=== PATIENT | female | born 1955 | race Caucasian/White ===

== ENCOUNTER 2023-11-17 22:24 | Emergency (ER) | payer MEDICARE, MEDICAID, SELFPAY ==
[2023-11-17 22:27] VITALS: BP 104/87; PULSE 91; RESP 18; TEMP 35.9; O2SAT 98
[2023-11-17 22:52] LABS: Appearance Urine Cloudy (Clear); Bilirubin Urine Negative (Negative); Blood Urine Negative (Negative); Color Urine Light Yellow (Yellow); Glucose Urine UA Negative (Negative); Ketones Urine Negative (Negative); Leukocyte Esterase Ur 1+ LEU/UL (Negative); Nitrate Urine Negative (Negative); Protein Urine Negative (Negative); Urobilinogen Urine >=8.0 mg/dL (0.2-1.0)
--- NOTE | 2023-11-17 22:52 | PC.NURSE ---
daughter and boyfriend arrived and at the bedside
[2023-11-17 22:57] LABS: Add Urine Microscopic? YES; Bacteria Urine 4+ /hpf; RBC Urine 0-2 /hpf (0-2); Squamous Epithelial Cell Urine Rare /hpf (Few)
--- NOTE | 2023-11-17 23:02 | PC.NURSE ---
dr garcia at the bedside
--- NOTE | 2023-11-17 23:07 | ECG_ITS ---
Test Date: 2023-11-17 23:21:33 Measurements Intervals [place] Rate: 86 P: -67 FL: 170 QRS: -16 QRSD: 86 T: 24 QT: 371 QTc: 446 Interpretive Statements SINUS RHYTHM LEFT VENTRICULAR HYPERTROPHY WITH ST-T WAVE CHANGES POOR R WAVE PROGRESSION INFERIOR INFARCT, AGE INDETERMINATE ABNORMAL ECG No previous ECG available for comparison Electronically Signed On 11-18-2023 08:56:34 CDT by Fredrick Mederos D.O.
[2023-11-17 23:35] LABS: Basophils Absolute Auto 0.11 K/mm3 (0.00-0.10); Basophils Percent Auto 1.4 % (0.0-1.0); Eosinophils Absolute Auto 0.34 K/mm3 (0.02-0.50); Eosinophils Percent Auto 4.4 % (1.0-6.0); Hemoglobin 14.2 g/dL (11.7-13.8); Immature Granulocyte Absolute 0.02 K/mm3 (0.00-0.00); Immature Granulocyte Percent A 0.3 % (0.0-0.0); Lymphocytes Absolute Auto 1.87 K/mm3 (1.10-4.50); Lymphocytes Percent Auto 24.2 % (18.0-42.0); Mean Corpuscular HGB Conc 33.8 g/dL (32-36); Mean Corpuscular Hemoglobin 32.7 pg (27.0-31.0); Mean Corpuscular Volume 96.8 fL (78.0-102.0); Mean Platelet Volume 9.7 fl (9.2-11.8); Monocytes Absolute Auto 1.02 K/mm3 (0.10-0.90); Monocytes Percent Auto 13.2 % (2.0-11.0); Neutrophils Absolute Auto 4.38 K/mm3 (1.70-7.20); Neutrophils Percent Auto 56.5 % (50.0-70.0); Platelet Count Result 208 K/mm3 (150-420); Red Blood Count 4.34 M/mm3 (4.20-5.40); White Blood Count 7.7 K/mm3 (4.8-10.8)
[2023-11-17] MEDS: SODIUM CHLORIDE 0.9% IV 1,000 ML 999 ML IV CONT (23:47)
[2023-11-17 23:51] LABS: Albumin Level 3.1 g/dL (3.4-5.0); Alkaline Phosphatase 82 U/L (46-116); Ammonia 118 umol/L (11-32); Anion Gap 10 mmol/L (4-12); Aspartate Amino Transferase 50 U/L (15-37); Bilirubin Direct 0.3 mg/dL (0-0.2); Blood Urea Nitrogen 15 mg/dL (7-18); Calcium 9.5 mg/dL (8.5-10.1); Carbon Dioxide 24 mmol/L (21-32); Chloride 105 mmol/L (98-108); Estimated CRCL calculation 61 ml/min; Estimated Glomerular Filt Rate 60; Osmolality Calculated 289 mOsm/kg (285-295); Potassium 3.5 mmol/L (3.5-5.1); Sodium 139 mmol/L (136-145); Total Protein 7.6 g/dL (6.4-8.2)
[2023-11-18 00:02] LABS: Alanine Aminotransferase 9 U/L (14-59); Glucose 112 mg/dL (70-99)
--- NOTE | 2023-11-18 00:04 | PC.NURSE ---
patient is resting on stretcher. daughter at the bedside. patient was repositioned for comfort by Ora mcclellan. call light is in reach
[2023-11-18] MEDS: LACTULOSE 20 GM/30 ML UDC 40 GM PO (00:27)
--- NOTE | 2023-11-18 00:31 | PC.NURSE ---
patient is resting on stretcher. bedside commode is in the room. call light in reach. patient states she will call if she needs to go to the bathroom. daughter has stepped out of the room. patient reports that she does not take her lactulose the way she should because it does not taste good. education about risks and benefits of taking lactulose was given. patient verbalized understanding. currently waiting on transfer line for [facility] to return call
--- NOTE | 2023-11-18 00:46 | ED.WEAKNESS ---
HPI - Weakness General Chief complaint: Weakness Stated complaint: Weakness Time Seen by Provider: 11/17/23 22:38 Source: patient Mode of arrival: ambulatory Limitations: no limitations History of Present Illness HPI Narrative: Patient is a 68-year-old female with a significant past medical history that presents today with confusion and what she thought was a UTI. She called the EMS to take her in as she has done this frequently when she has UTIs she is very weak and has to have them taken by EMS. Her symptoms is she is very fatigue and weak. After further questioning she does have liver problems she had hep C that was cured. She also had some lower lobe probably think that related to alcohol and other contributing factors to liver failure. She does and is supposed to take lactulose. But she has not been taking her lactulose as prescribed. She states she is not felt like and she is not very good at taking her medications. Complaint: generalized weakness Onset (ago): day(s) Duration: constant Location: generalized Severity: moderate Quality: tingling and numbness Relieving factors: none Exacerbating factors: none Associated symptoms: confusion Related Data Home Medications Medication Instructions Recorded Confirmed [place] 7.5 mg PO TID PRN Pain 11/17/23 11/17/23 amitriptyline 10 mg PO QHS 11/17/23 11/17/23 fluoxetine 20 mg PO DAILY 11/17/23 11/17/23 furosemide 80 mg PO DAILY 11/17/23 11/17/23 lactulose 30 ml PO 4XW 11/17/23 11/17/23 metformin 500 mg PO BID 11/17/23 11/17/23 rosuvastatin 20 mg PO DAILY 11/17/23 11/17/23 spironolactone 50 mg PO BID 11/17/23 11/17/23 Allergies Allergy/AdvReac Type Severity Reaction Status Date / Time No Known Allergies Allergy Verified 11/17/23 22:37 Review of Systems Review of Systems: All systems reviewed & are unremarkable except as noted in HPI and below Constitutional: Constitutional: Reports as per HPI Eyes: Eyes: Reports no additional eye complaints ENT: Reports system reviewed and no additional complaints, except as documented Cardiovascular: Cardiovascular: Reports no additional cardiovascular complaints Respiratory: Respiratory: Reports no additional respiratory complaints Gastrointestinal: Gastrointestinal: Reports no additional gastrointestinal complaints Genitourinary: Genitourinary: Reports no additional female genitourinary complaints Musculoskeletal: Musculoskeletal: Reports no additional musculoskeletal complaints Integumentary/Breasts: Skin/Breast: Reports system reviewed and no additional complaints, except as docu Neurologic: Reports system reviewed and no additional complaints, except as documented Psychiatric: Psychiatric: Reports no additional psychiatric complaints Endocrine: Endocrine: Reports no additional endocrine complaints Hematologic/Lymphatic: Hematologic/Lymphatic: Reports no additional hematologic/lymphatic complaints Allergic/Immunologic: Allergic/Immunologic: Reports no additional allergic/immunologic complaints Exam Const: General: healthy appearing Nutritional Appearance: well nourished Orientation/consciousness: patient oriented x3 HENMT: Head: normal to inspection Ears: external ears normal Face/Nose/Sinus: Normal external nose present Face and sinus: normal facial exam Eyes: Conjunctivae: conjunctivae normal Pupils: Equal, round and reactive pupils present EOM: EOMs intact bilaterally Neck: Neck: normal visual inspection Chest: Chest palpation & inspection: normal inspection of the chest Resp: Effort & Inspection: normal respiratory effort Auscultation: clear to auscultation bilaterally Cardio: Rate: regular rate Rhythm: regular rhythm GI: GI Palp: Yes Soft to palpation : General: Yes bladder normal to palpation Back/Spine/Pelvis: Back: no CVA tenderness Skin: General skin exam: normal color Rashes: no rashes Wounds: no wounds Extrem: General: normal to inspection Psych: Other: confus
--- NOTE | 2023-11-18 01:30 | PC.NURSE ---
resting on stretcher with familly at her side. no needs voiced at time. call light in reach
[2023-11-18] MEDS: NITROFURANTOIN MONOHYD MACROCR 100 MG CAP PO (01:53)
--- NOTE | 2023-11-18 02:07 | PC.NURSE ---
waiting on [facility] to return call for bed assignment and phone number for nurse to nurse report
--- NOTE | 2023-11-18 02:27 | PC.NURSE ---
updated patient that EMS crew will be here after 0700 to transfer to [facility]
[2023-11-18 02:34] VITALS: BP 126/57; PULSE 82; RESP 18; TEMP 35.9; O2SAT 95
--- NOTE | 2023-11-18 03:33 | PC.NURSE ---
patient resting quietly on stretcher. family at the bedside. they are getting ready to go home. patient resp even and unlabored. call light in reach
--- NOTE | 2023-11-18 04:26 | PC.NURSE ---
patient resting quietly on stretcher. appears to be sleeping. resp even and unlabored. call light in reach. cell phone on bedside table along with note from her daughter
--- NOTE | 2023-11-18 05:16 | PC.NURSE ---
patient called out. eleuterio Payan, reports that she needed to use the bathroom. eleuterio Payan, helped patient to bedside commode.
[2023-11-18 06:06] VITALS: BP 105/50; PULSE 80; RESP 18; TEMP 35.9; O2SAT 95
--- NOTE | 2023-11-18 06:14 | PC.NURSE ---
patient resting quietly on stretcher. resp even and unlabored. call light in reach.
[2023-11-18 07:54] VITALS: BP 110/52; PULSE 84; RESP 20; TEMP 36.2; O2SAT 96
--- NOTE | 2023-11-20 13:23 | PC.NURSE ---
PRELIMINARY URINE CULTURE RESULTS: GRAM NEGATIVE BACILLI IN CLUSTERS, PT WAS TRANSFERRED TO [facility].
--- NOTE | 2023-11-21 16:24 | PC.NURSE ---
FINAL URINE CULTURE RESULTS: ISOLATE 1: GREATER THAN 100,000 CFU/ML OF ESCHERICHIA COLI. PT WAS TRANSFERRED TO [facility]. SPOKE WITH ADAMA DE PAZ AT [facility] WHO REPORTS PT WAS DC HOME, NO RX WERE GIVEN FOR ANTIBIOTICS UPON DC, HOWEVER SHE DID RECEIVE ROCEPHIN 1000MG IV X3 WHILE IN PT. PER DR SCHROEDER AND C&S, NO FURTHER TX IS NEEDED.
== END 2023-11-18 07:54 | disposition short-term general hospital (02) ==
PROVIDERS: Emergency Provider Family Medicine
DX: E72.20 Disorder of urea cycle metabolism, unspecified (principal); N39.0 Urinary tract infection, site not specified; Z79.899 Other long term (current) drug therapy; Z79.84 Long term (current) use of oral hypoglycemic drugs
CPT/HCPCS: 36415; 80053; 81001; 82140; 82248; 83605; 85025; 87077; 87086; 87088; 87186; 93005; 96360; 99285; A9270; J7030

== ENCOUNTER 2024-09-03 06:29 | Observation (INO) | payer MEDICARE, MEDICAID, SELFPAY ==
[2024-09-03] VITALS (20 sets, daily range): BP systolic 118–138; BP diastolic 54–78; PULSE 84–100; RESP 16–20; TEMP 36.6–36.7; O2SAT 90–99; BMI 44790.6
--- NOTE | ~2024-09-03 | CT_ITS ---
Non-contrast Head CT History: Multiple falls Technique: Axial non-contrast imaging of the brain was performed. Dose reduction technique was used on this scan by utilizing automated exposure control and iterative reconstruction technique. The dose -length product (DLP) was 681.00 mGy-cm. Findings: There is no evidence of intracranial hemorrhage, mass lesion, or acute infarct. Brain par enchyma appears normal. The ventricles and subarachnoid spaces are normal in size. The calvarium ap pears normal. The visualized paranasal sinuses and mastoid air cells are clear. Impression: No significant abnormality seen. Reviewed, dictated and finalized at location . Impression: No significant abnormality seen.
--- NOTE | ~2024-09-03 | XR_ITS ---
XR chest 1V portable 09/03/2024 07:02 Indication: Shortness of breath. History of COPD. Procedure: AP portable chest Comparison: No prior studies for comparison. Findings: Right basilar airspace consolidation, consistent with pneumonia. Cardiomegaly. No significa nt effusion. No pneumothorax. Severe degenerative changes of the shoulders. Impression: 1: Right basilar consolidation, consistent with pneumonia. Reviewed, dictated and finalized at location A. Impression: 1: Right basilar consolidation, consistent with pneumonia.
--- NOTE | ~2024-09-03 | CT_ITS ---
Non-contrast CT scan of the Abdomen and Pelvis Clinical indication: Left lower quadrant mass Technique: 2.5 mm axial scans were obtained through the abdomen and pelvis without intravenous or or al contrast. Dose reduction technique was used on this scan by utilizing automated exposure control a nd iterative reconstruction technique. The dose-length product (DLP) was 1594.74 mGy-cm. Findings: Images through the lung bases reveal right lower lobe consolidation with bronchiectasis/ai r bronchograms.. Multiple gallstones are present. Mildly nodular contour of liver suggests cirrhosis. There are probab le splenorenal varices. The kidneys, spleen, pancreas, and adrenals appear normal. There are atherosc lerotic calcifications of the aorta. . There is no evidence of bowel obstruction. Images through the pelvis were performed. There is no evidence of ascites or lymphadenopathy. Urinary bladder unremarkable. Left ovary is enlarged measuring 11.8 x 11.0 x 11.1 cm, with several cystic ar eas within it. There is a similar appearance of enlarged right ovary, which measures 7.6 x 4.6 x 3.5 cm. There is diffuse degenerative spondylosis of the spine. Impression: Marked enlargement of bilateral ovaries, left greater than right, as detailed above. Diagnostic consi derations include ovarian hyperthecosis or ovarian hyperstimulation due to underlying gonadotropin se creting tumor or other hormonal imbalance, versus possibly other bilateral ovarian neoplastic/metasta tic lesions. Gynecologic and possibly endocrinologic follow up/consultation advised. 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 Cholelithiasis. Right lower lobe consolidation with bronchiectasis and air bronchograms. Appearance is suggestive of chronic consolidation such as atelectasis or scarring. Correlate for acute pneumonia. Reviewed, dictated and finalized at [facility]. Impression: Marked enlargement of bilateral ovaries, left greater than right, as detailed a heber. Diagnostic considerations include ovarian hyperthecosis or ovarian hypers timulation due to underlying gonadotropin secreting tumor or other hormonal imb alance, versus possibly other bilateral ovarian neoplastic/metastatic lesions. Gynecologic and possibly endocrinologic follow up/consultation advised. 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 Cholelithiasis. Right lower lobe consolidation with bronchiectasis and air bronchograms. Appear ance is suggestive of chronic consolidation such as atelectasis or scarring. Co rrelate for acute pneumonia.
--- NOTE | ~2024-09-03 | CT_ITS ---
Procedure: CT hip LT wo con Ordering provider: Laurel Reid MD History: . fall/ALWAYS HAS HIP PAIN . Comparison: None. Technique: Thin slice axial CT of the No IV contrast was given. Sagittal and coronal reformatted imag es were also obtained and reviewed. The dose-length product was 543.77 mGy-cm. Findings: BONES: No definite fracture demonstrated. Old healed fracture in the right inferior pubic ramus is no shana. JOINT SPACES: Moderately narrowed suggestive of osteoarthritic changes. SOFT TISSUES: Slightly hyperdense areas seen in the pelvis and left side of the abdomen with multiple hypodensities. Further evaluation is advised to exclude ovarian masses. IMPRESSION: No definite acute fracture demonstrated. Hyperdense masses with hypodensity is suggestive of ovarian masses. Further evaluation advised. Reviewed, dictated and finalized at location A. IMPRESSION: No definite acute fracture demonstrated. Hyperdense masses with hypodensity is suggestive of ovarian masses. Further paolo luation advised.
--- NOTE | ~2024-09-03 | CT_ITS ---
CT lumbar spine wo con Ordering provider: Laurel Reid History: 69 years Female with . fall/ALWAYS HAS BACK PAIN . Comparison: None. Technique: CT lumbar spine without contrast. Automated exposure control and iterative reconstruction technique were employed. The dose-length product was 1253.80 mGy-cm. FINDINGS: VERTEBRAE: Loss of height is noted in L1 and L2 which is most likely chronic. MRI evaluation advised. Otherwise, Normal height and alignment. No subluxation or visible acute fracture. Osteopenia of the bones. DISC SPACES: Narrowing of the disc L4-L5. Vacuum phenomena seen at the level of L3-L4 and L5-S1. Mult ilevel facet joint disease. T11-T12: Severe spinal canal stenosis. Bilateral narrowing of the foramina. T12-L1: No stenosis. L1-L2: No stenosis. L2-L3: No stenosis. L3-L4: Mild spinal canal stenosis secondary to broad based disc bulge, osteophytes, facet arthropathy , and ligamentum flavum hypertrophy. bilateral intervertebral foraminal narrowing by osteophytes. L4-L5: Severe spinal canal stenosis secondary to broad based disc bulge, facet arthropathy, and liga mentum flavum hypertrophy. Bilateral narrowing of the foramina with root compression. L5-S1: No stenosis. PARASPINOUS SOFT TISSUES: Mild atheromatous disease of the abdominal aorta. Cholelithiasis. Highly suggestive of ovarian masses seen in the midline and on the left side. Tiny calcification the left kidney suggestive of a stone. Bilateral sacroiliitis. IMPRESSION: Loss of height seen in L2 and L3 most likely chronic. MRI evaluation advised. Multilevel degenerative disc disease with variable degrees of spinal canal stenosis and intervertebra l foraminal narrowing. Ovarian masses. Further evaluation advised. Cholelithiasis. Tiny left kidney stone. Reviewed, dictated and finalized at location A. IMPRESSION: Loss of height seen in L2 and L3 most likely chronic. MRI evaluation advised. Multilevel degenerative disc disease with variable degrees of spinal canal sten osis and intervertebral foraminal narrowing. Ovarian masses. Further evaluation advised. Cholelithiasis. Tiny left kidney stone.
--- OUTSIDE RECORDS SUMMARY | 2024-09-03 06:31 | XMS_ITS | Continuity of Care Document ---
Author Organization [facility] Address [address] [place] [address] Phone Care Team Providers Care Environmental Programs Manager Name Role Phone Delroy Calhoun MD Unavailable Unavailable Allergies, Adverse Reactions, Alerts Substance Reaction Status Criticality No Known Allergies Active No Inform ation Medications Medication Instructions Dosage Effective Dates (start - stop) Status Comments lisinopril 20 mg-hydrochlorothi azide 12.5 mg tablet take 1 tablet by oral route every day 1.00 tablet - Active Tylenol-Codeine #3 300 mg-30 mg tablet take 1 tablet by oral route 2 times every day as needed 1 tablet - Active avoid drivin g or operate machines potassium chloride ER 20 mEq tablet,extended release take 1 tablet (20MEQ) by oral route every day with food 20 MEQ - Active Lasix 20 mg tablet take 1 tablet (20MG) by oral route 2 times every day 20 MG - Active Procedures Procedure Date PREV VISIT, NEW, AGE 40-64 Advance Directives Directive Yes / No Effective Date File Name No Information Encounters Encounter Description Practice Location Reason(s) For Visit Diagnoses Date Provider Providers Copied on Encounter [facility], [address], [place], [id number], tel:[phone] [facility] No Information [address], [place], [id number] , [place]. tel:[phone] PREV VISIT, NEW, AGE 40-64 [facility], [address], [id number], tel:[phone] [facility] Physical (chief complaint) Dietary surveillance and counselingRoutine Medical ExamRoutine Medical Exam [address], [place], [place], [id number] , [place]. [phone] Family History Family Member Type Diagnosis Age At Onset Brother Problem (finding) gout Father Problem (finding) Coronary artery disease 60 Mother Problem (finding) Diabetes mellitus Mother Problem (finding) Cancer, unknown Payers Payer name Insurance type Covered constitution party ID Authoriza tion(s) No Information Social History Type Description Quantity Date Captured Comments Sex Female Smoking Status No Information Chief Complaint And Reason For Visit No Information Plan Of Treatment Date Type Action Status Goal Tobacco cessation counseling completed Referral Ordered: COLONOSCOPY AND BIOPSY ordered Referral Ordered: MAMMOGRAM, SCREENING ordered History Of Present Illness Encounter Date Complaint History Of Prese nt Illness No Information Instructions Date Instruction Additional Infor leah Dietary counseling Related to Di etary surveillance counseling Decrease caloric intake Related to Dietary surveillance counseling Assessments Type Assessment Date No Information
--- OUTSIDE RECORDS SUMMARY | 2024-09-03 06:31 | XMS_ITS | Clinical Summary ---
Author Organization [facility] Address [address] [place] [address] Care Team Providers Care Outcomes Manager Name Role Phone Rolly Best MD Primary Care Provider [phone] Allergies No known active allergies Medications rosuvastatin (CRESTOR) 20 MG tablet Take 1 tablet (20 mg total) by mouth 2 (two) times daily. Active spironolactone (ALDACTONE) 50 MG tablet Take 1 tablet (50 mg total) by mouth daily. Active sulfamethoxazol e-trimethoprim (BACTRIM DS) 800-160 MG tablet Take 1 tablet by mouth 2 (two) times daily. Active triamcinolone (KENALOG) 0.1 % ointment Apply topically 2 (two) times daily. Active dulaglutide (TRULICITY) 3 MG/0.5ML injection Inject 3 mg into the skin once a week. Active amitriptyline (ELAVIL) 10 MG tablet Take 1 tablet (10 mg total) by mouth nightly at bedtime. Active buPROPion XL (WELLBUTRIN XL) 150 MG 24 hr tablet Take 1 tablet (150 mg total) by mouth daily. Active FLUoxetine (PROZAC) 20 MG capsule Take 1 capsule (20 mg total) by mouth daily. Active furosemide (LASIX) 80 MG tablet Take 1 tablet (80 mg total) by mouth daily. Active HYDROcodone-anastasiia taminophen (NORCO) 5-325 MG tablet Take 1 tablet by mouth 3 (three) times daily. Active ipratropium-alb uterol (DUONEB) 0.5-2.5 (3) MG/3ML Solution Take by nebulization every 4 (four) hours as needed. Active ketorolac (ACULAR LS) 0.4 % ophthalmic solutionIndicat ions:surgery drop Place 1 drop into the right eye 3 (three) times daily. Indications: surgery drop Active lovastatin (MEVACOR) 40 MG tablet Take 1 tablet (40 mg total) by mouth daily with supper. Active metFORMIN ER (GLUCOPHAGE-XR) 500 MG 24 hr tablet Take 2 tablets (1,000 mg total) by mouth daily with breakfast. Active ofloxacin (OCUFLOX) 0.3 % ophthalmic solutionIndicat ions:surgery drop Place 1 drop into the right eye 3 (three) times daily. Indications: surgery drop Active prednisoLONE acetate (PRED FORTE) 1 % ophthalmic suspensionIndic ations:surgery drop Place 1 drop into the right eye 3 (three) times daily. Indications: surgery drop Active rifAXIMin (XIFAXAN) 550 MG Tab Take 1 tablet (550 mg total) by mouth 2 (two) times daily. Active Active Problems No known active problems Immunizations Immunization Administration Dates Next Due MODERNA COVID-19 (12+) MRNA, LNP-S, PF, 100 MCG/ 0.5 ML DOSE 09/11/2020,08/14/2020 MODERNA COVID-19 ([employer] BAILEY SARA), MRNA, LNP-S, PF, 50 MCG/ 0.25 ML DOSE 04/20/2021 Family History Medical History Relation Comments Heart Disease Father Hyperlipidemia Father Hypertension Father Cancer Mother Lung Diabetes Mother Relation Status Comments Father Mother Social History Tobacco Use Types Packs/Day Years Used Date Smoking Tobacco: Every Day Cigarettes 1 52.3 Started: 1972 Smokeless Tobacco: Never Tobacco Cessation:Ready to Q uit: Not Asked; Counseling Given: Not Answered Alcohol Use Standard Drinks/Week Comments Never 0 (1 standard drink = 0.6 oz pur e alcohol) Comments Unknown Sex and Gender Information Value Date Recorded Sex Assigned at Not on file Legal Sex Female 6:12 PM CDT Gender Identity Not on file Sexual Orientation Not on file Last Filed Vital Signs Vital Sign Reading Time Taken Comments Blood Pressure 122/68 12/11/2023 9:46 AM CDT Pulse 86 12/11/2023 9:46 AM CDT Temperature 36 C (96.8 F) 12/11/2023 9:21 AM CDT Respiratory Rate 18 12/11/2023 9:21 AM CDT Oxygen Saturation 94% 12/11/2023 9:46 AM CDT Inhaled Oxygen Concentration - - Weight 111 kg (244 lb 11.4 oz) 12/05/2023 10:15 AM CDT Height 157.5 cm (5' 2 ) 12/05/2023 10:15 AM CDT Body Mass Index 44.76 12/05/2023 10:15 AM CDT Plan of Treatment Health Maintenance Due Date Last Done Comments Colorectal Cancer Screening Colonoscopy (10 Years) 1957 Hepatitis C 1975 Mammogram Screening 1997 Lung Cancer Screening 2007 Zoster Vaccines (1 of 2) 2007 RSV Immunization or 60+ Years (1 - Risk 60-74 years 1-dose series) 2017 Annual Medicare Wellness Visit 2022 Dexa Scan (General) 2022 COVID-19 Vaccine (4 - 2023-2 5 season) 2023 04/20/2021, 09/11/2020, 08/14/2020 DTaP, Tdap and Td Vaccines ( 2 - Td or Tdap) 05/13/2026 05/13/2016 Pneumococcal Vaccine: 50+ Years (3 of 3 - PCV20 or PCV21) 03/21/2027 03/21/2022, 05/13/2016 Meningococcal B Vaccine Aged Out No l onger eligible based on patient's age to complete this topic Meningococcal Vaccine Aged Out No [place] samara eligible based on patient's age to complete this topic RSV Immunizations Under 20 Months Aged Out No longer eligible b ased on patient's age to complete this topic Medical Devices Implanted Type Area Donor Services Team Leader Device Identifier Shelf Expiration Date Model / Serial / Lot Iol Tecnis Dib00 - [id number] Implanted:Qty: 1 on 11/27/2023 by Nam Martinez MD at [facility] Lens Left: Eye [employer] [id number] 03/12/2026 DIB00 / [id number] / NA Description:Dr. Matrinez confirm ed IOL Iol Tecnis Dib00 - [id number] Implanted:Qty: 1 on 12/11/2023 by Nam Martinez MD at [facility] Lens Right: Eye [employer] [id number] 07/30/2026 DIB00 / [id number] / NA Description:Verified with ep meera and Dr Guido Insurance [facility] MEDICAID Care Teams Outcomes Manager Relationship Specialty Start Date End Date Rolly Best MD PCP - General FAMILY PRACTICE 11/27/23
--- OUTSIDE RECORDS SUMMARY | 2024-09-03 06:31 | XMS_ITS | Data Portability ---
Author Organization [facility], [address] Neurology ([place]) Address [address] 4th [place] [address] Care Team Providers Care Clinical Nursing Assistant Name Role Phone LOR REYES Primary Care Provider Assessment Encounter Date Assessment Date Assessment LastModified by Organization Details LastModified Time 03/12/2024 03/12/2024 This is a phil 69-year-old female with a history of KELSEY 3 and bilateral adnexal masses. 1. History of abnormal Pap test: She had a Pap test on 02/25/21. This was normal cytology, negative HPV. Pap test obtained today. We will call her with the results. 2. KELSEY 3: Patient's exam today is overall unremarkable. I encouraged self exams. She was instructed to call if she notices any new areas of concern. 3. Bilateral adnexal masses: These have overall remained stable on imaging. Given that she's a poor surgical candidate, we will continue to monitor these yearly. We did review more worrisome signs/symptoms and indications to follow up. She verbalized understanding of this plan and left in stable condition. [email or web address] Not available 03/12/2024 16:01:09 07/15/2024 07/15/2024 Christina is a 69-year-old female is a Dr. Reyes. She is here today for follow-up of her known history of cirrhosis. She is overdue for labs but up to date on imaging. Overall she is doing well from a GI standpoint and has no current GI complaints. She does have a history of fatty liver disease. Unfortunately she has not been physically active and her diet is not the best. REVIEW OF SYSTEMS: GENERAL: Denies fever, chills, sweats, anorexia. EYES: Denies change in vision, eye pain or photophobia. ENT: Denies ear pain or discharge, nasal obstruction or discharge. CV: Denies chest pain. RESP: Denies cough, dyspnea, excessive sputum, hemoptysis, wheezing. GI: as per HPI. : Denies urinary symptoms MSK: Denies new back pain, joint pain, joint swelling. SKIN: Denies rash, itching, dryness or lesions. NEURO: Denies seizures, syncope, tremors, vertigo. Psych: Denies mood problems PAST MEDICAL HISTORY: 1 . Diabetes 2 . Hypertension 3 . Hyperlipidemia 4 . Squamous cell lung cancer 5 . Ovarian mass 6 . COPD F AMILY HISTORY: Denies family history of colon cancer S OCIAL HISTORY: No longer drinks alcohol. Denies any previous history of illegal/illicit drug use. P HYSICAL EXAM: G eneral: Patient is well-developed and well-nourished. No acute distress. N blanco: Neck is supple. No visible masses no lymphadenopathy. H eart: Heart is regular sinus rhythm. No murmurs heard. L ungs: Lungs are clear to auscultation bilaterally. Respirations unlabored. A bdomen: The abdomen is soft and nontender to palpation. Normal bowel sounds. E xtremities: Normal range of motion of the upper and lower extremities. No edema in the lower extremities bilaterally. S kin: Warm and moist. P sychiatric: Patients mood and affect are appropriate. L ABORATORY DATA: In March 2024 she had an ultrasound of her liver which showed hepatic cirrhosis. There was no focal liver lesion identified but the liver was poorly seen and they recommended an MRI be considered on follow-up. There is incidental cholelithiasis. In October 2023 she had an AST of 23 and an ALT of 12. She had a CBC which showed a hemoglobin of 12.4 hematocrit of 36.0 and an MCV of 95.7. She had a negative iron panel, ceruloplasmin, ASMA, AMA and COURTNEY. She did have a hepatitis panel which showed she was reactive for hepatitis C antibody but her ultra quant with reflex to genotype showed no detectable level. In March 2022 she had a normal TSH. In March [address] scan of her chest abdomen and pelvis. This commented on increased right lower lobe opacity felt to be due to progressive postradiation changes but superimposed pneumonia or recurrent tumor could not be excluded. She had a minimal right pleural effusion. She was noted to have hepatic cirrhosis with mild splenomegaly and venous collaterals indicating portal hypertension. She had cholelithiasis. She had bilateral large ovarian masses which demonstrated mild decrease in size compared to previous exams. She had a hemoglobin of 13.3 hematocrit of 39% and MCV of 95. She had an AST of 18 and ALT of 11. P ROCEDURAL DATA: She had a colonoscopy and EGD in July [address] Deleon. Her colonoscopy commented on a subcentimeter colon polyp. Is recommended she have a colonoscopy again in 5 years. Her EGD was negative. It was recommended she have an EGD again in 2 years. I MPRESSION: 1 . Cirrhosis 2 . Fatty liver. P TOM: 1. The patient was educated on the importance of cirrhosis. They understand that cirrhosis is a chronic complication of progressive hepatic fibrosis, which leads to irreversible liver damage. They understand that they are at an increased risk of developing complications, including but not limited to the multiple complications associated with portal hypertension (variceal hemorrhage, portal hypertensive gastropathy, ascites, portopulmonary hypertension and cirrhotic cardiomyopathy), hepatic encephalopathy, portal venous thrombosis and are at an increased risk of developing hepatocellular carcinoma. They understand the importance of controlling their risk factors which were discussed in office along with undergoing routine follow-ups. The patient will follow up with us again in 6 months with a repeat CBC, liver function panel, PT/INR and an ultrasound of the liver. Should the patient have any complications prior to that they will contact our office immediately. 2. She is scheduled for an EGD. An explanation of the procedure was provided, risks and benefits of the procedure were explained. Procedural risks that were discussed include; risk of infection, bleeding, perforation or cardiopulmonary issues associated with the sedation itself. The patient also understands that this is an imperfect exam and lesions can be missed. The patient verbalizes understanding and wishes to proceed and they have no further questions at this time. [email or web address] Not available 07/15/2024 15:41:26 Plan of Treatment Reminders Order Date Submit Date Provider Last Modified By Organization Details Last Modified Time Details Appointments Amanda cuevas Patient 30.EST 2024 02:30P M Tiffany Lopez Not available Not available Not available Imaging 5.PRO 11/11/ 2025 11:45A M Radiology Not available Not available Not available Sandys hed Patient 20.EST 2024 01:20P M Dr. Sharon Hernández Not available Not available Not available Lab hemoglob in A1c + average glucose, QN, blood 2024 025 [email or web address] 139 [facility] (Lab) [place] [facility], [address] [place] [address], [id number], 07/30/2024 10:14:18 lipid panel, serum 2024 025 [email or web address] 139 [facility] (Lab) [place] Location, [address] [place] [address], [address], 08/29/2024 11:23:56 CMP, serum or plasma 2024 025 [email or web address] (Lab) [place] Location, [address] [place] [address], [address], 08/13/2024 10:29:40 CBC 2024 025 [email or web address] (Lab) [place] Location, [address] [place] [address], [id number], 08/13/2024 10:29:52 urinalys is, complete 2024 025 [email or web address] (Lab) [place] Location, [address] [place] [address], [address], 08/06/2024 16:19:01 gamma-gl utamyl transfer ase (ggt), serum 2024 025 [email or web address] (Lab) [place] [facility], [address] [place] [address], [address], 08/06/2024 16:19:18 PT/INR 2024 025 [email or web address] (Lab) [place] Location, [address] [place], [address], 08/13/2024 10:30:12 afp (alpha-f etoprote in) tumor marker, serum or plasma 2024 025 [email or web address] 139 [facility] (Lab) [place] [facility], [address] [facility], [place], [address], 08/13/2024 10:30:24 Referral None recorded . Procedures None recorded . Surgeries None recorded . Imaging None recorded . Medication Orders Trulicit y 4.5 mg/0.5 mL subcutan eous pen injector 2024 025 [facility]/Pharmacy #[id number], [address] [place], [address], 07/17/2024 16:04:48 Patient TargetsNo targets recorded. Patient Instructions Encounter Date Encounter Id Patient Instructions Last Modified By Organization Details Last Modified Time 07/17/2024 [id number] Recommend no alcohol no tobacco. Recommend chair tilts to build quad strength in the knees without aggravating arthritis. Instructed here in the office. Patient was able to do. Continue current medications. Consider beta-zaheer [email or web address] Not available 07/21/2024 22:34:43 Reason for Referral None Reported. Results Created Date Observation Date Name Description Value Unit Range Abnormal Flag Note LastModifiedBy Organization Detail LastModifiedTime 03/12/20 24 03/12/2024 GYNEC OLOGI C CYTOL OGY REPOR T review analyst/aC Perfo rmed at: [facility] Order ing Provi valdez: Jayde trevino, Jennifer Blanc nt Name: JYOTHI GONZALEZ, CRYST IE C Acces cara #: [id number] /A ge/Ge nder: 02/21 (Age: 69) / F Proce dure Date: 03/12 SP ECIME N RECEI CALI * SureP ath HPV DNA with Pap, Cervi cristian/E ndoce rvica l Speci men Adequ acy Satis facto ry for evalu ation Endoc ervic al cell/ trans forma tion zone compo nent absen t Cytol ogic Diagn osis Negat dorota for intra epith elial lesio n or malig 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 The josé manuel HPV Test is a polym erase chain react ion (PCR) -base d DNA ampli ficat ion test that simul taneo usly ident ifies a martinez d resul t for 12 HR HPV types (HPV- 31, 33, 35, 39, 45, 51, 52, 56, 58, 59, 66 and 68) and indiv idual resul ts for HPV-1 6 and HPV-1 8. High Risk HPV types are assoc iated with cervi cristian carci noma and its predi sposi ng lesio ns: cervi cristian atypi a and high grade squam ous intra epith elial lesio n (mode rate and sever e dyspl yinka, carci noma in situ/ MANISH 2 and MANISH 3). The U.S. Food and Drug Admin istra tion (FDA) has appro cali this test for use with SureP ath speci mens. The perfo rmanc e hannah cteri stics of this test were verif ied by the [facility] (Jamel rial Medic al Arnold rRita, Brit ayoub). [facility] is autho rized under Clini cristian Labor atory Impro vemen t Amend ments (CLIA ) to perfo rm high- compl exity testi ng. Recom menda tion The Ameri can Cance r Socie ty (ACS) , Ameri can Socie ty for Colpo scopy and Cervi cristian Patho logy (ASCC P), and Ameri can Socie ty for Clini cristian Patho logy (ASCP ) recom mends that women who recei ve negat dorota resul ts on both tests shoul d be rescr eened no more frequ ently than every five years . HPV DNA posit dorota, cytol ogy negat dorota women shoul d be follo wed conse rvati vely repea ting BOTH tests in 12 month s. HPV-n egati ve ASC-U S shoul d be rescr eened with co-te sting in 3 years . All other Pap test inter preta tions shoul d be follo wed accor ding to ASCCP Conse nsus Guide lines for that parti cular inter preta tion. HPV testi ng is order ed as part of refle x testi ng as indic ated by the requi sitio n order and/o r as a resul t of addit ional testi ng reque sts submi tted by the physi izabella. 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 A biops y is recom tierra d for any suspi cious or visib le lesio n. The patie nt shoul d be remin ded to consu lt a gynec ologi c care provi valdez if they exper ience any suspi cious signs or sympt oms regar dless of the Pap test resul t. END OF REPOR T Not Available Tx Only - [facility] [address], [place], [address], 03/27/2024 15:54:15 07/16/19 25 07/15/2024 CBC CBC Not Available Sc Only - [facility] [address] [place] [address], [address], 07/15/2024 18:08:03 07/16/19 25 07/15/2024 CBC WBC 6.6 K/uL 3.8-11 .2 Not Available [facility] - [facility] [address] [place] [address], [address], 07/15/2024 18:08:03 07/16/19 25 07/15/2024 CBC RBC 4.19 M/uL 3.92-5 .10 Not Available Tx Only - [facility] [address] [place] [address], [address], 07/15/2024 18:08:03 07/16/19 25 07/15/2024 CBC HGB 13.7 g/dL 11.8-1 5.3 Not Available Tx Only - [facility] [address] [place] [address], [address], 07/15/2024 18:08:03 07/16/19 25 07/15/2024 CBC HCT 39.5 % 36.5-4 4.8 Not Available Tx Only - [facility] [address] [place] [address], [address], 07/15/2024 18:08:03 07/16/19 25 07/15/2024 CBC MCV 94.3 fL 80.0-9 9.0 Not Available T[facility] Only - [facility] [address] [place] [address], [address], 07/15/2024 18:08:03 07/16/19 25 07/15/2024 CBC MCH 32.7 pg 25.5-3 3.6 Not Available Tx Only - [facility] [address] [place] [address], [address], 07/15/2024 18:08:03 07/16/19 25 07/15/2024 CBC MCHC 34.7 g/dL 32.0-3 6.0 Not Available Sc Only - [facility] [address] [place] [address], [address], 07/15/2024 18:08:03 07/16/19 25 07/15/2024 CBC RDW-SD 47.3 fL 35.1 - 46.3 high Not Available Tx Only - [facility] [address] [place] [address], [address], 07/15/2024 18:08:03 07/16/19 25 07/15/2024 CBC plt 246 K/uL 130-40 0 Not Available Tx Only - [facility] [address] [place] [address], [address], 07/15/2024 18:08:03 07/16/19 25 07/15/2024 CBC MPV 9.1 fL 9.3-12 .8 low Not Available T[facility] Only - [facility] [address] [place] [address], [address], 07/15/2024 18:08:03 07/16/19 25 07/15/2024 PT/IN R protime panel 2 Not Available Tx Onl y - [facility] [address] [place] [address], [id number], 07/15/2024 18:24:10 07/16/19 25 07/15/2024 PT/IN R prothrombin 12.3 secon ds 9.4-13 .1 Not Available T[facility] Only - [facility] [address] [place] [address], [address], 07/15/2024 18:24:10 07/16/19 25 07/15/2024 PT/IN R INR 1.1 INR INTER PRETA TION 2.0-3 .0 FOR DEEP VEIN THROM BOSIS PULMO NARY EMBOL ISM ACUTE MYOCA RDIAL INFAR CTION ATRIA L FIBRI LLATI ON 3.0-4 .5 FOR MECHA NICAL HEART VALVE S Not Available T[facility] Only - [facility] [address] [place] [address], [address], 07/15/2024 18:24:10 07/16/19 25 07/15/2024 CMP, serum or plasm a comp. met. panel Not Available Tx On y - [facility] [address] [place] [address], [id number], 07/15/2024 19:11:04 07/16/19 25 07/15/2024 CMP, serum or plasm a sodium 144 mmol/ L 136-14 6 Not Available Tx Only - [facility] [address] [place] [address], [address], 07/15/2024 19:11:04 07/16/19 25 07/15/2024 CMP, serum or plasm a potassium 3.8 mmol/ L 3.5-5. 1 Not Available Tx Only - [facility] [address] [place] [address], [address], 07/15/2024 19:11:04 07/16/19 25 07/15/2024 CMP, serum or plasm a chloride 109 mmol/ L 98-110 Not Available T[facility] Only - [facility] [address] [place] [address], [address], 07/15/2024 19:11:04 07/16/19 25 07/15/2024 CMP, serum or plasm a CO2 28 mEq/L 20-32 Not Available Tx Only - [facility] [address] [place] [address], [address], 07/15/2024 19:11:04 07/16/19 25 07/15/2024 CMP, serum or plasm a anion gap 11 mmol/ L 10-22 Not Available Tx Only - [facility] [address] [place] [address], [address], 07/15/2024 19:11:04 07/16/19 25 07/15/2024 CMP, serum or plasm a glucose 61 mg/dL 70-100 low Not Available Tx Only - [facility] [address] [place] [address], [address], 07/15/2024 19:11:04 07/16/19 25 07/15/2024 CMP, serum or plasm a calcium 10.0 mg/dL 8.4-10 .4 Not Available Tx Only - [facility] [address] [place] [address], [address], 07/15/2024 19:11:04 07/16/19 25 07/15/2024 CMP, serum or plasm a total protein 7.0 g/dL 6.4-8. 3 Not Available Tx Only - [facility] [address] [place] [address], [address], 07/15/2024 19:11:04 07/16/19 25 07/15/2024 CMP, serum or plasm a albumin 3.7 g/dL 3.5-5. 3 Not Available [facility] [address] [place] [address], [address], 07/15/2024 19:11:04 07/16/19 25 07/15/2024 CMP, serum or plasm a ALP 74 U/L 44 - 127 Not Available [facility] [address] [place] [address], [address], 07/15/2024 19:11:04 07/16/19 25 07/15/2024 CMP, serum or plasm a AST (SGOT) 22 U/L 10-40 Not Available [facility] [address] [place] [address], [address], 07/15/2024 19:11:04 07/16/19 25 07/15/2024 CMP, serum or plasm a total bilirubin 0.8 mg/dL 0.2-1. 2 Not Available Tx Only - [facility] [address] [place] [address], [address]67, 07/15/2024 19:11:04 07/16/19 25 07/15/2024 CMP, serum or plasm a ALT (SGPT) 13 U/L 8-35 Not Available [facility] [address] [place] [address], [address], 07/15/2024 19:11:04 07/16/19 25 07/15/2024 CMP, serum or plasm a BUN 10 mg/dL 7-21 Not Available Tx Only - [facility] [address] [place] [address], [address], 07/15/2024 19:11:04 07/16/19 25 07/15/2024 CMP, serum or plasm a creatinine 0.8 mg/dL 0.7-1. 3 Not Available Tx Only - [facility] [address] [place] [address], [address], 07/15/2024 19:11:04 07/16/19 25 07/15/2024 CMP, serum or plasm a CKD-epi GFR 81 eGFR was calcu lated using the 2020 CKD-E PI equat ion. (Greenhouse Worker kassy Kidne y Disea se has an eGFR less than 60 mL/mi n/1.7 3mm for a perio d of three month s or more. ) This calcu latio n has not been valid ated for patie nt ages <18 or >90 years old. Not Available Tx Only - T[facility] Laboratory [facility] [address], [address], 07/15/2024 19:11:04 07/16/19 25 07/16/2024 afp (alph a-fet oprot ein) tumor marke r, serum or plasm a AFP-tumor marker 3.6 NG/mL 0.0-9. 2 Pauline Diagn ostic s Elect pauline milum inesc ence Immun oassa y (ECLI A) . Value s obtai reece with diffe rent assay metho ds or kits canno t be used inter lamb eably . Resul ts canno t be inter prete d as absol healy lake evide nce of the prese nce or absen ce of christen moreno se. . This test is not inter preta ble in pregn ant femal es. Not Available Tx Only - [facility] Laboratory [address], [address], 07/16/2024 07:40:33 08/07/19 25 08/06/2024 gluco se, finge rstic k, blood Blood Glucose: mg/dl 72 Not Available Admini strativ e Office (Tx) [address] [place], [address], 08/06/2024 16:50:14 08/07/19 25 08/06/2024 gluco se, tyrel guerra k, blood Blood Glucose: mg/dl 65 Not Available Admini strativ e Office (Tx) [address] [place], [address], 08/06/2024 16:12:07 03/14/20 24 03/14/2024 US, abdom en, limit ed [facility] [address] [place] [address] Teleph one [phone] Name: Patrick Avery [id number] Exam Date: 2023 Age: 69 Physic roro: MD Devendra, Kings : 1954 Examin ation: US ABDOME N LIMITE D EXAM: Ultras ound of the liver HISTOR Y: Cirrho sis. Survei llance examin ation. COMPAR GINNY: Ultras ound [address] 024. FINDIN GS: The liver has a grossl y cirrho tic appear ance. The liver is poorly seen. There is a small stable benign cyst. The left lobe liver cyst was seen on an outsid e CT dated 020. No worris ome liver mass is identi fied. Howeve r, the liver is poorly seen and focal liver lesion s cannot be exclud ed on the basis of this examin ation before protoc ol CT or MRI should be consid ered for furthe r evalua tion. There is slow flow within the main portal vein, simila r to the previo us ultras ound. There is no bile duct dilata tion. There is cholel ithias is withou t eviden ce of acute cholec ystiti s. There is no perihe patic ascite s. IMPRES CARA: 1. Hepati c cirrho sis. 2. No focal liver mass is identi fied but the liver is poorly seen. Liver protoc ol CT or MRI should be consid ered for furthe r evalua tion. (Ultra sound LI-RAD S Catego ry 1; LI-RAD S visual izatio n score C) 3. There is incide ntal cholel ithias is. Electr onical ly signed in Franks cribe by: NAOMI Garcia MD on: 4 1:32 PM cc: Page PAGE 1 of NUMPA ES 1 [email or web address] Tx Only - [facility] [address] [place] [address], [address], 03/22/2024 15:47:17 Result Notes None recorded. Problems Name Problem SNOMED Code Status Onset Date Resolution Date Notes Provider Name and Address Organization Details Recorded Time Low back pain 449315819 Active 2023 Юлия Hernandez [facility] 4 17:58:44 Vulval intraepith elial neoplasia grade 3 750356383 Active 2023 Lor Reyes MD [address] [place] [address], [address] , [facility] 5 22:22:47 Mass of uterine adnexa 968822554 Active 2023 JENNIFER MENDOZA NP [address] [place] [address], [address] , [facility] 4 16:01:56 Acute urinary tract infection 060853383 Active 2023 Lor Reyes MD [address] [place] [address], [address] , [facility] 4 22:32:53 Lymphadeno berkley 86437256 Active 2024 Lor Reyes MD [address] [place] [address], [phone] , [facility] 5 16:24:05 Asthenia 22519769 Active 2024 Lor Reyes MD [address] [place] [address], [phone] , [facility] 5 16:38:03 Chronic obstructiv e pulmonary disease 58431114 Active Not Available [facility] 5 16:38:19 Portal hypertensi on 28798848 Active Not Available [facility] 5 16:38:29 Cirrhosis of liver 61114951 Active 2023 Nestor Andrade PA-C [address] [facility], [place], [address] , [facility] 5 15:40:23 Dyslipidem ia 230054095 Active 2023 Vida Scooter [facility] 4 09:29:14 Psoriasis 2675379 Active 2023 [facility] 4 09:29:23 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 0898426056817 9107 Active 2023 [facility] 4 09:29:32 Depressive disorder 34666720 Active 2023 Vida Scooter [facility] 4 09:29:42 Pulmonary emphysema 94326086 Active 2023 Lor Reyes MD [address] [facility], [place], [address] , [facility] 5 22:22:28 Hypertensi ve disorder 99564009 Active 2023 [facility] 4 09:30:38 Metabolic dysfunctio n-associat ed steatotic liver disease Active 2023 Vida Scooter [facility] 4 09:31:22 Chronic pain 64991709 Active 2023 Aimee Goff in [facility] 4 11:11:16 Edema of lower extremity 077638712 Active 2023 Aimee Goff in [facility] 4 11:17:49 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 Not Available DrAvailable [facility] 4 15:32:08 Heart failure 16391431 Active Not Available [facility] 4 15:32:26 Type 2 diabetes mellitus 44653343 Active Kaylyn Farr [facility] 5 13:27:55 Morbid obesity 523375820 Active Not Available [facility] 4 15:32:35 Malignant neoplasm of lung 456717441 Active Not Available [facility] 4 15:32:51 Recurrent urinary tract infection 707520139 Active 2023 Lor Reyes MD [address] [place] [address], [phone] [place] [address] 4 15:37:51 Sprain of left wrist 1941200504513 9104 Active 2023 Lor Reyes MD [address] [place] [address], [phone] [place] [address] 4 15:41:20 Bilateral arthritis of knees 9248895303134 108 Active 2023 Lor Reyes MD [address] [place] [address], [id number] 5 22:23:11 Urinary tract infectious disease 60756386 Active 2023 Marga Paniagua [facility] 4 15:43:41 Squamous cell carcinoma of lung 111741546 Active 2023 Lor Reyes MD [address] [place] [address], [address] , [facility] 5 22:22:58 Notes:Some problems listed i n Documents: #[id number], #[id number], #[id number], #[id number], #[id number], #[id number], #[id number] could not be added to this patient's chart. Please review these documents and add these problems to the patient's chart manually as needed. 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 Thank you for allowing us to participate in the care of your patient. Please contact us with any questions. Sincerely, Electronically Signed by: NESTOR ANDRADE PA-C Encounter Reason/Date Reason for visit: pt is here for f/u- cirrhosis Referring provider:Naga Fraser Previous history of MRSA :no Previous history VRE :no Previous history of Cdiff :no Blood Thinners? no Diabetic? metformin, trulicity Latex Allergy? no 07/15/2024 - 02:00PM - [facility] ([place])ProblemsReviewed Problems Malignant tumor of lung Squamous cell carcinoma of lung - Onset: 11/24/2023 Vulval intraepithelial neoplasia grade 3 - Onset: 03/12/2024 Diabetes mellitus - Onset: 08/29/2023 Type 2 diabetes mellitus Secondary hyperaldosteronism Dyslipidemia - Onset: 10/16/2023 Morbid obesity Depressive disorder - Onset: 10/16/2023 Chronic pain - Onset: 11/14/2023 Hypertensive disorder - Onset: 10/16/2023 Heart failure Pulmonary emphysema - Onset: 10/16/2023 Asthma-chronic obstructive pulmonary disease overlap syndrome - Onset: 10/16/2023 Cirrhosis of liver - Onset: 10/16/2023 Acute urinary tract infection - Onset: 08/19/2023 Recurrent urinary tract infection - Onset: 11/16/2023 Urinary tract infectious disease - Onset: 11/24/2023 Mass of uterine adnexa - Onset: 03/12/2024, Bilateral Psoriasis - Onset: 10/16/2023 Low back pain - Onset: 08/04/2023 Edema of lower extremity - Onset: 11/14/2023 Non-alcoholic fatty liver disease - Onset: 10/16/2023 Sprain of left wrist - Onset: 11/16/2023 Bilateral arthritis of knees - Onset: 11/16/2023 Some problems listed in Documents: #[id number], #[id number], #[id number], #[id number], #[id number], #[id number] could not be added to this patient's chart. 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 Please review these documents and add these allergies to the patient's chart manually as needed. Medications Reviewed Medications NameDate Source amitriptyline 10 mg tabletPLEASE SEE ATTACHED FOR DETAILED KUTORPFTEZ94/09/25 filled surescripts buPROPion HCL XL 150 mg 24 hr tablet, extended release1 daily first week then 2 daily Internal Note:last rx 05/17/2406 prescribed Lor Reyes MD FLUoxetine 20 mg capsuleTAKE 1 CAPSULE BY MOUTH EVERY DAY06/19/24 filled surescripts furosemide 80 mg tabletTAKE 1 TABLET BY MOUTH EVERY DAY QBSJHRJU28/01/25 filled surescripts HYDROcodone 7.5 mg-acetaminophen 325 mg tabletTake 1 tablet(s) 3 times a day by oral route, for low back pain.07/08/24 prescribed Lor Reyes MD ipratropium 0.5 mg-albuteroL 3 mg (2.5 mg base)/3 mL nebulization solnUse 1 unit dose in nebulizer every 4 hours as needed Internal Note:last rx 05.17.2405/17/24 prescribed Lor eRyes MD metFORMIN ER 500 mg tablet,extended release 24 hrTAKE 2 TABLETS BY MOUTH EVERY DAY. DUE FOR APPT.07/02/24 filled surescripts OneTouch UltraSoft 2 Lancet 30 gaugeUSE TO TEST ONCE DAILY04/20/23 filled surescripts OneTouch Verio test stripsUSE TO test blood glucose ONCE DAILY04/18/23 filled surescripts rosuvastatin 20 mg tabletTAKE 1 TABLET BY MOUTH EVERY DAY06/12/24 filled surescripts spironolactone 50 mg tabletTAKE 1 TABLET BY MOUTH TWICE A DAY.07/12/24 prescribed Lor Reyes MD triamcinolone acetonide 0.1 % topical creamApply to affected area twice daily as needed Internal Note:last rx 05.17. prescribed Lor Reyes MD Trulicity 3 mg/0.5 mL subcutaneous pen injectorINJECT 1 PEN (3MG) ONCE KWPGOJ76/10/24 filled surescripts Xifaxan 550 mg tabletTAKE 1 TABLET BY MOUTH TWICE A DAY06/18/24 filled surescripts Family HistoryFamily History not reviewed (last reviewed 11/16/2023) Social HistorySocial History not reviewed (last reviewed 11/16/2023) Substance UseHow many packs per day (PPD)?: 1 pack a dayHow long have you smoked?: 52 yearsCurrent every day smoker-less than 1ppd, 40 years, Started at age 18., Last Assessed: 18 Jan 2023 3:53PM Type: Chronic Last Edited: 18 Jan 2023 3:53PM ICD9 Code: 305.1 Last Reviewed Date: 20230118 SnomedCode: 330712118 ICD10 Code: F17.200 LastAssessedBy: ORA LYLES (Pulmonary Medicine) Former consumption of alcohol, Type: Chronic Last Edited: 13 May 2016 3:41PM ICD9 Code: V11.3 Last Reviewed Date: 20160513 SnomedCode: 305044301 ICD10 Code: Z87.898 Smoking greater than 40 pack years, Last Assessed: 25 Nov 2022 12:08PM Type: Chronic Identified By: LOR REYES Last Edited: 25 Nov 2022 12:08PM ICD9 Code: 305.1 Last Reviewed Date: 20221125 SnomedCode: 89941117 ICD10 Code: F17.210 LastAssessedBy: LOR REYES (Family Medicine) Surgical HistoryNone recordedAdditional HistoryNone recordedHistory of Present IllnessNone recordedReview of SystemsNone recordedPhysical ExamNone recordedProcedure DocumentationNone recordedAssessment/PlanCryst ie is a 69-year-old female is a Dr. Reyes. She is here today for follow-up of her known history of cirrhosis. She is overdue for labs but up to date on imaging. Overall she is doing well from a GI standpoint and has no current GI complaints. She does have a history of fatty liver disease. Unfortunately she has not been physically active and her diet is not the best. REVIEW OF SYSTEMS: G ENERAL: Denies fever, chills, sweats, anorexia. E YES: Denies change in vision, eye pain or photophobia. E NT: Denies ear pain or discharge, nasal obstruction or discharge. C V: Denies chest pain. R NIKA: Denies cough, dyspnea, excessive sputum, hemoptysis, wheezing. G I: as per HPI. G U: Denies urinary symptoms M SK: Denies new back pain, joint pain, joint swelling. S KIN: Denies rash, itching, dryness or lesions. N EURO: Denies seizures, syncope, tremors, vertigo. P sych: Denies mood problems P AST MEDICAL HISTORY: 1 . Diabetes 2 . Hypertension 3 . Hyperlipidemia 4 . Squamous cell lung cancer 5 . Ovarian mass 6 . COPD F AMILY HISTORY: Denies family history of colon cancer S OCIAL HISTORY: No longer drinks alcohol. Denies any previous history of illegal/illicit drug use. PHYSICAL EXAM: G eneral: Patient is well-developed and well-nourished. No acute distress. N blanco: Neck is supple. No visible masses no lymphadenopathy. H eart: Heart is regular sinus rhythm. No murmurs heard. L ungs: Lungs are clear to auscultation bilaterally. Respirations unlabored. A bdomen: The abdomen is soft and nontender to palpation. Normal bowel sounds. E xtremities: Normal range of motion of the upper and lower extremities. No edema in the lower extremities bilaterally. S kin: Warm and moist. P sychiatric: Patients mood and affect are appropriate. L ABORATORY DATA: In March 2024 she had an ultrasound of her liver which showed hepatic cirrhosis. There was no focal liver lesion identified but the liver was poorly seen and they recommended an MRI be considered on follow-up. There is incidental cholelithiasis. In October 2023 she had an AST of 23 and an ALT of 12. She had a CBC which showed a hemoglobin of 12.4 hematocrit of 36.0 and an MCV of 95.7. She had a negative iron panel, ceruloplasmin, ASMA, AMA and COURTNEY. She did have a hepatitis panel which showed she was reactive for hepatitis C antibody but her ultra quant with reflex to genotype showed no detectable level. In March 2022 she had a normal TSH. In March [address] scan of her chest abdomen and pelvis. This commented on increased right lower lobe opacity felt to be due to progressive postradiation changes but superimposed pneumonia or recurrent tumor could not be excluded. She had a minimal right pleural effusion. She was noted to have hepatic cirrhosis with mild splenomegaly and venous collaterals indicating portal hypertension. She had cholelithiasis. She had bilateral large ovarian masses which demonstrated mild decrease in size compared to previous exams. She had a hemoglobin of 13.3 hematocrit of 39% and MCV of 95. She had an AST of 18 and ALT of 11. PROCEDURAL DATA: She had a colonoscopy and EGD in July [address] Deleon. Her colonoscopy commented on a subcentimeter colon polyp. Is recommended she have a colonoscopy again in 5 years. Her EGD was negative. It was recommended she have an EGD again in 2 years. I MPRESSION: 1 . Cirrhosis 2 . Fatty liver. P TOM:1. The patient was educated on the importance of cirrhosis. They understand that cirrhosis is a chronic complication of progressive hepatic fibrosis, which leads to irreversible liver damage. They understand that they are at an increased risk of developing complications, including but not limited to the multiple complications associated with portal hypertension (variceal hemorrhage, portal hypertensive gastropathy, ascites, portopulmonary hypertension and cirrhotic cardiomyopathy), hepatic encephalopathy, portal venous thrombosis and are at an increased risk of developing hepatocellular carcinoma. They understand the importance of controlling their risk factors which were discussed in office along with undergoing routine follow-ups. The patient will follow up with us again in 6 months with a repeat CBC, liver function panel, PT/INR and an ultrasound of the liver. Should the patient have any complications prior to that they will contact our office immediately.2. She is scheduled for an EGD. An explanation of the procedure was provided, risks and benefits of the procedure were explained. Procedural risks that were discussed include; risk of infection, bleeding, perforation or cardiopulmonary issues associated with the sedation itself. The patient also understands that this is an imperfect exam and lesions can be missed. The patient verbalizes understanding and wishes to proceed and they have no further questions at this time. 1.Hepatic cirrhosis, unspecified hepatic cirrhosis type, unspecified whether ascites cxlxudfE38.60: Unspecified cirrhosis of liver Return to Office Lor Reyes MD for Established Patient 30.EST at [address] Family Medicine ([place]) on 07/17/2024 at 02:30 PM Lois Osborn MD for Acute 20.ACU at [address] Oncology/Hematology ([place]) on 07/23/2024 at 01:00 PM Sharon Hernández MD for Established Patient 20.EST at [address] Gynecologic Oncology ([place]) on 03/11/2025 at 01:[address] [place] [address] for Imaging 5.PRO at [address] Imaging ([place]) on 03/11/2025 at 11:45 AM Lor Reyes MD [address] [place] [address], [phone], [place] [facility] 07/15/2024 23:33:43 Procedures Surgical History None recorded. Imaging Results Imaging Date Name Status LastModified by Organiz ation Details LastModified Time 03/14/2024 US, abdomen, limited completed [id number] Tx Only - Tx Radiology [address] [place] [address], [id number], 03/22/2024 15:47:17 Procedure Notes None recorded. Medical Equipment None Reported. 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 START DAY BEFORE SURGERY AND USE UNTIL GONE 03/12 completed Not Available Not Available Not Available lovastatin 40 mg tablet Take 1 tablet every day by oral route at bedtime. 06/12 completed last rx 02/27 Not Available Not Available Not Available sulfamethox azole 800 mg-trimetho prim 160 mg tablet TAKE ONE TABLET BY MOUTH TWICE DAILY 11/21 completed Not Available Not Available Not Available triamcinolo ne acetonide 0.1 % topical cream Apply to affected area twice daily as needed 2023 active last rx 05.17 Not Available Not Available Not Available ketorolac 0.5 % eye drops INSTILL 1 DROP INTO RIGHT EYE 3 TIMES A DAY. START DAY BEFORE SURGERY AND CONTINUE UNTIL GONE 03/12 completed Not Available Not Available Not Available prednisolon e acetate 1 % eye drops,suspe nsion INSTILL 1 DROP INTO RIGHT EYE 3 TIMES A DAY. START DAY BEFORE SURGERY AND USE UNTIL GONE 03/12 completed Not Available Not Available Not Available furosemide 80 mg tablet TAKE 1 TABLET BY MOUTH EVERY DAY DIRECTED active Not Available Not Available No t Available amitriptyli ne 10 mg tablet TAKE 1/2 TO 1 TAB BY MOUTH AT BEDTIME, MAY INCREASE GRADUALLY UP TO 5 TABS AT BEDTIME TOLERATED active Not Available Not Available No t Available hydrocodone 7.5 mg-acetamin ophen 325 mg tablet TAKE 1 TABLET BY MOUTH 3 TIMES DAILY FOR LOW BACK PAIN active Not Available Not Available No t Available cephalexin 500 mg capsule TAKE 2 CAPSULES BY MOUTH TWICE DAILY FOR 10 DAYS UNTIL GONE 03/12 completed Not Available Not Available Not Available nitrofurant oin macrocrysta l 100 mg capsule TAKE ONE CAPSULE BY MOUTH TWICE DAILY FOR 7 DAYS 11/21 completed Not Available Not Available Not Available cephalexin 500 mg tablet Take 2 tablets twice a day by oral route for 10 days. 03/12 completed Not Available Not Available Not Available fluoxetine 20 mg capsule TAKE 1 CAPSULE BY MOUTH EVERY DAY active Not Available Not Available No t Available metformin ER 500 mg tablet,exte nded release 24 hr TAKE 2 TABLETS BY MOUTH EVERY DAY. DUE FOR APPT. active Not Available Not Available No t Available spironolact one 50 mg tablet TAKE 1 TABLET BY MOUTH TWICE A DAY active Not Available Not Available No t Available rosuvastati n 20 mg tablet TAKE 1 TABLET BY MOUTH EVERY DAY active Not Available Not Available No t Available ketorolac 0.4 % eye drops 03/12 completed Not Available Not Available Not Available bupropion HCl XL 150 mg 24 hr tablet, extended release 1 daily first week then 2 daily 07/17 completed last rx Not Available Not Available Not Available nitrofurant oin monohydrate /macrocryst als 100 mg capsule TAKE ONE CAPSULE BY MOUTH TWICE DAILY 11/21 completed Not Available Not Available Not Available metformin ER 500 mg 24 hr tablet,exte nded release (gastric retention) TAKE 2 TABLETS BY MOUTH EVERY DAY. DUE FOR APPT. 2024 active Not Available Not Available Not Avai lable Xifaxan 550 mg tablet TAKE 1 TABLET BY MOUTH TWICE A DAY active Not Available Not Available No t Available OneTouch Verio test strips USE TO TEST ONCE DAILY 2024 active Not Available Not Available Not Avai lable Trulicity 1.5 mg/0.5 mL subcutaneou s pen injector ADMINISTE R 1.5 MG UNDER THE SKIN WEEKLY 07/15 completed Not Available Not Available Not Available Trulicity 3 mg/0.5 mL subcutaneou s pen injector INJECT 1 PEN (3MG) ONCE WEEKLY 07/21 completed Not Available Not Available Not Available Trulicity 4.5 mg/0.5 mL subcutaneou s pen injector Inject 1 dose weekly 2024 active Not Available Not Available Not Avai lable OneTouch UltraSoft 2 Lancet 30 gauge USE TO TEST ONCE DAILY active Not Available Not Available No t Available Vitals Date Recorded Oxygen saturation Oxygen saturation in Arterial blood by Pulse oximetry Heart rate Body temperature Body weight Systolic blood pressure Diastolic blood pressure Provider Name and Address Organization Details Last Updated DateTime 4 95 % 95 % 86 /min 97.8 [degF] 456234. 58 g 108 mm[Hg] 68 mm[Hg] Ora Wang [facility] 4 14:34:18 Date Recorded Body height Body mass index (BMI) Body weight Heart rate Oxygen saturation Oxygen saturation in Arterial blood by Pulse oximetry Systolic blood pressure Diastolic blood pressure Provider Name and Address Organization Details Last Updated DateTime 5 157.48 cm 47.6 kg/m2 871581. 02 g 87 /min 98 % 98 % 132 mm[Hg] 78 mm[Hg] Rosita Norwood [facility] 5 15:26:15 Date Recorded Body height Heart rate Oxygen saturation Oxygen saturation in Arterial blood by Pulse oximetry Systolic blood pressure Diastolic blood pressure Provider Name and Address Organization Details Last Updated DateTime 5 157.48 cm 92 /min 96 % 96 % 112 mm[Hg] 64 mm[Hg] Юлия Hernandez [facility] 5 15:57:55 Social History Question Answer Notes LastModified by Organizat ion Details LastModified Time How Many Packs Per Day (PPD)? 1 Pack A Day [id number] Information not available 11/16/2023 How Long Have You Smoked? 52 Years [id number] Information not available 11/16/2023 Sex: Unknown Functional Status None recorded. Mental Status None recorded. Family History Nothing Reported. Medical History No medical history recorded. Gynecological HistoryNo gynecological history recorded. Obstetrics History GPAL:G 0 P 0 0 0 0 Immunizations Vaccine Type Date Status Note Provider Nam e and Address Organization Details Recorded Time Influenza, split virus, quadrivalent, preservative 0 [facility] 15:58:29 Influenza, MDCK, quadrivalent, PF 9 completed [facility]17[facility]2024 15:58:29 Influenza, MDCK, quadrivalent, PF 1 completed [facility] 07/17/2024 15:58:29 Influenza, adjuvanted, quadrivalent, PF 3 completed [facility]/17/2024 15:58:29 Influenza, adjuvanted, quadrivalent, PF 2 completed [facility] 07/17/2024 15:58:30 COVID-19, mRNA, LNP-S, PF, 100 mcg/0.5mL dose or 50 mcg/0.25mL dose 1 completed Юлия andujar [facility] 07/17/2024 15:58:30 COVID-19, mRNA, LNP-S, PF, 100 mcg/0.5mL dose or 50 mcg/0.25mL dose 1 completed [facility]/17/2024 15:58:30 COVID-19, mRNA, LNP-S, PF, 100 mcg/0.5mL dose or 50 mcg/0.25mL dose 1 completed [facility] 07/17/2024 15:58:30 pneumococcal polysaccharide PPV23 7 completed [facility] 07/17/2024 15:58:30 Tdap 7 completed [facility] 07/17/2024 15:58:30 Pneumococcal conjugate PCV 13 2 completed [facility] 07/17/2024 15:58:30 Influenza, split virus, trivalent, preservative 7 completed Юлия andujar, [facility] 07/17/2024 15:58:30 Influenza, split virus, trivalent, preservative 7 completed [facility]/17/2024 15:58:30 Past Encounters Encounter ID Performer Location Encounter Start Date Encounter Closed Date Diagnosis/Indication Diagnosis SNOMED-CT Code Diagnosis ICD10 Code Diagnosis Note [id number] Lor Reyes MD [address] ([place]) [address] [place] [address],[address] [place] [address] 11/16/2023 14:50:12 11/16/2023 17:54:31 Secondary hyperaldosteronism 47227697 E26.1 BP controlled 114/70, recheck potassium Cirrhosis of liver 007 K74.60 Recheck LFTs Heart failure 99044969 I 50.9 Type 2 francisca betes mellitus 64343946 E11.69 A1c 10.5 (2020) improved to 5.5 (05/2023) with addition of Trulicity to metformin diet exercise Morbid obesity 411638596 E66.01 Malignant neoplasm of lung 714181558 C34.90 Actively managed by pulmonary and oncology Pre-surger y evaluation 003827984 Z01.818 Clinically stable for eye surgery with Dr. Martinez at [facility].BP controlled , CHF controlled , TIERRA needs to be prepared for during recovery with BiPAP if there is any sedation used.Reche ck labs are stable for surgery as below.-EKG no change-A1c improved to 5.1, HDL/LDL 37/79-Crea tinine 0.8, GFR 76, K4.0, ALT 11-Hgb 13.5, WBC 7.9, PLT 269-UA 10 WBCs, await culture and treat if necessary. Asthma-chr onic obstructive pulmonary disease overlap syndrome 4815026423 2243107 J44.9 Hypertensive disorder 38 722082 I10 BP 114/70 (10/2023) Recurrent urinary tract infection 448922597 N39.0 Sprain of left wrist 798 2254714 4805600 S63.502A Sprain rolling over in bed. Swelling around wrist. Bilateral arthritis of knees 2695577650 662130 M13.861 M13.862 Patient with DJD obesity, needs walker for at home. Her walker is starting to fall apart breakdown handles are worn out.Needs it for her DJD of the knees, back, and obesity. 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 [id number] Nestor Andrade PA-C [facility] Gastroent erology ([place]) [address] [place] [address] 07/15/2024 15:10:25 07/15/2024 16:02:41 Cirrhosis of liver 53197401 K74.60 [id number] Lor Reyes MD [address] ([place]) [facility],[address] [place] [address] 07/17/2024 15:18:30 07/18/2024 08:39:00 Type 2 diabetes mellitus 61450055 E11.69 A1c 10.5 (2020) improved to 5.5 (05/2023) with addition of Trulicity to metformin diet exercise Cirrhosis of liver 007 K74.69 K74.60 Recheck LFTs Malignant neoplasm of lung 370673508 C34.90 Actively managed by pulmonary and oncology Morbid obesity 938246910 E66.01 Chronic pain 98803643 M1 3.869 M54.50 C34.31 Pain management adequate Lymphadenopathy 93756947 R59.9 Right axilla x 2 Asthenia 91071908 R53.81 Chronic ob structive pulmonary disease 98783866 J44.9 Heart failure 66503179 I 50.9 Portal hypertension 3474 2002 K76.6 [id number] Delvin Villalba MD [facility] GI Anesthesi a S [address] [place] [address] 08/06/2024 15:27:20 08/14/2024 09:03:59 [id number] Kings Ramsay MD [facility] Gastroent erology ([place]) [address] [place] [address], [address] [place] [address] 08/06/2024 15:27:22 08/12/2024 10:55:34 Health Concerns Section Related Observation LastModified by Organization Detai ls LastModified Time None Recorded Concern Status LastModified by Organization Details LastModified Time None Recorded Advance Directives Directive None Recorded Payers Encounter Date Sequence Insurance Name Policy Number Policy Alcantara Covered Member ID Alcantara Member ID Guarantor Name 03/12/[address] [facility] (MEDICARE REPLACEMENT/A DVANTAGE - PPO) [id number] Crystie C Ramirez [id number] Crystie C Ramirez 03/12/2024 2 [place]: [facility] PUBLIC [employer] Crystie C Ramirez [id number] Crystie C Ramirez 07/15/[address] [facility] (MEDICARE REPLACEMENT/A DVANTAGE - PPO) [id number] Crystie C Ramirez [id number] Crystie C Ramirez 07/15/2024 2 [place]: [facility] PUBLIC [employer] Crystie C Ramirez [id number] Crystie C Ramirez 07/17/[address] [facility] (MEDICARE REPLACEMENT/A DVANTAGE - PPO) [id number] Crystie C Ramirez [id number] Crystie C Ramirez 07/17/2024 2 [place] [facility] Crystie C Ramirez [id number] Crystie C Ramirez 08/06/[address] [facility] (MEDICARE REPLACEMENT/A DVANTAGE - PPO) [id number] Crystie C Ramirez [id number] Crystie C Ramirez 08/06/2024 2 [place] [facility] Crystie C Ramirez [id number] Crystie C Ramirez 08/06/[address] [facility] (MEDICARE REPLACEMENT/A DVANTAGE - PPO) [id number] Crystie C Ramirez [id number] Crystie C Ramirez 08/06/2024 2 [place] [facility] Crystie C Ramriez [id number] Crystie C Ramirez Notes Date Note Type Note Provider Name and Address Organization Details Recorded Time 03/12/2024 text/html This is a phil 69-year-old female who is morbidly obese with multiple comorbidities who presents today for a 1 year surveillance exam. Beth alvarenga has known bilateral adnexal masses. We have followed these for quite some time. She most recently had a CT of the abdomen/pelvis in November 2023. There are bilateral cystic and solid ovarianmasses. This measures up to 11.7 cm on the left and 8.7 cm on the right. Thesemasses are mildly decreased in size compared to 11/15/2022. Given that she's a poor surgical candidate, we have continued to follow these. S he had a WLE of the vulva on 01/25/19. Her final pathology showed VIN3. Beth alvarenga comes in today with a friend. She is overall doing well. She has no complaints for me today. She denies any vaginal bleeding. She denies itching or discharge. She occasionally has some abdominal pain, but it resolves on its own. She is eating and drinking normally. JENNIFER MENDOZA NP [address] [place] [address], [phone], [facility] 03/12/2024 16:02:26 07/17/2024 text/html Patient here to follow-up on multiple problems 1. DMT2 A1c 10.1 (2020) improved to 5.5 with Trulicity added to diet, activity, metformin2. Asthma-COPD smoker on ipratropium3. Squamous cell carcinoma of the lung4. Heart failure EF 73% suggest HFpEF diastolic dysfunction on furosemide, spironolactone5. Hyperlipidemia on rosuvastatin6. Cirrhosis with portal hypertension.7. Depression on fluoxetine8. Arthritis bilateral knees on amitriptyline-hydrocodo ne pain management Lor Reyes MD [address] [place] [address], [phone], [facility] 07/21/2024 22:44:41 08/06/2024 text/html The history and physical dated {{DATE 07/15/2024}} completed by {{ rachael pineda#}} has been reviewed, the patient has been examined and no change has occurred in the patient s condition since the history and physical was completed. Kings Ramsay MD [address] [place] [address], [phone], [facility] 08/06/2024 16:00:10 08/06/2024 text/html [facility] PRE-ANEST HETIC EVALUATIONReported bypatient.Reason for Visit:PROPOSED PROCEDURE: EGD; SURGEON: Devendra; PREOP DIAGNOSIS: Other cirrhosis of liver General:Exercise tolerance poor; Ambulates with walker (unsteady gait); Denies chest pain or chest tightness; SOB with mild exertion; Morbid Obesity Cardiac:No Hx of CAD; Hypertension; Hyperlipidemia; H/O CHF Pulmonary:COPD ; Current every day smoker; Smoking Hx, 1/2 ppd 50 years Endo:NIDDM GI:Cirrhosis; Hepatitis C Pysch:Depression Hem/Onc:Lung cancer hx Prior Anesthetic Complication:no history of anesthesia complications Family Anesthetic Hx:no history of anesthesia complications Testing/ResultsCBC Date: 07/15/24; HBG results: 13.7; HCT results: 39.5; Platelets results: 246; BMP/CMP Date: 07/15/24; BUN results: 10; Creatine results: 0.8; Potassium results: 3.8 Physical Exam: AirwayMP II TeethMissing teeth; Poor dentition ; Chipped; missing most teeth. a few remaining teeth chipped/broken NeckFull range of motion CardiovascularRegular rate and rhythm RespiratoryDimished breath sounds bilaterally, but clear GastrointestinalNPO status >6 hrs solids, >2 hrs clear liquids Vital Signs:Vital signs reviewed. Please refer to nursing preop note for values Assessment:ASA PS: III Plan:MAC Discussion:I have discussed with the patient the anesthetic plan, alternatives, pertinent risks, and complications; including but not limited to PONV, dental injury, sore throat, SC, stroke, etc. All questions were answered. Patient verbalize(s) understanding and agree(s) to proceed. Delvin Villalba MD [address] [place] [address], [phone], [facility] 08/06/2024 15:58:36 OBGyn Episode No OBEpisode recorded.
[2024-09-03 06:39] LABS: Glucose Point of Care 160 mg/dl (65-105)
--- NOTE | 2024-09-03 06:47 | ECG_ITS ---
Test Date: 2024-09-03 07:02:26 Measurements Intervals Hardesty Rate: 98 P: 78 WY: 177 QRS: 79 QRSD: 94 T: 22 QT: 354 QTc: 452 Interpretive Statements SINUS RHYTHM LOW QRS VOLTAGE IN PRECORDIAL LEADS [QRS DEFLECTION < 1.0 mV IN CHEST LEADS] POOR R WAVE PROGRESSION Compared to ECG 11/17/2023 23:21:33 NO SIGNIFICANT CHANGES Electronically Signed On 09-03-2024 14:14:34 CDT by Roxanna Alegria M.D.
--- NOTE | 2024-09-03 06:48 | PC.NURSE ---
DAVID GALAN AT THE BEDSIDE PLACING IV LINE
--- NOTE | 2024-09-03 06:53 | PC.NURSE ---
XRAY AT THE BEDSIDE. LAB AT THE BEDSIDE
--- NOTE | 2024-09-03 07:01 | ED_ITS ---
HPI - Fall General Chief Complaint: Fall <Laurel Reid MD - Last Filed: 09/03/24 07:07> Stated Complaint: weakness <Laurel Reid MD - Last Filed: 09/03/24 07:07> Time Seen by Provider: 09/03/24 06:46 <Laurel Reid MD - Last Filed: 09/03/24 07:07> Source: patient and EMS <Laurel Reid MD - Last Filed: 09/03/24 07:07> Mode of arrival: EMS <Laurel Reid MD - Last Filed: 09/03/24 07:07> History of Present Illness HPI Narrative: 69 years old white female came from home by ambulance because slid out of the bed to the floor complaining of worsening of lower back pain and left hip pain. She denies head injury or neck injury. . Patient reports multiple falls in the last few weeks. <Laurel Reid MD - Last Filed: 09/03/24 07:07> Related Data Home Medications: Home Medications ?Medication ?Instructions ?Recorded ?Confirmed ?Last Taken ?Type [place] 7.5 mg PO TID PRN Pain 11/17/23 09/03/24 Unknown History amitriptyline 10 mg PO QHS 11/17/23 09/03/24 Unknown History fluoxetine 20 mg PO DAILY 11/17/23 09/03/24 Unknown History furosemide 80 mg PO DAILY 11/17/23 09/03/24 Unknown History metformin 500 mg PO BID 11/17/23 09/03/24 Unknown History rosuvastatin 20 mg PO DAILY 11/17/23 09/03/24 Unknown History spironolactone 50 mg PO BID 11/17/23 09/03/24 Unknown History dulaglutide 3 mg/0.5 mL 3 mg subcut WEEKLY 09/03/24 09/03/24 Unknown History subcutaneous pen injector (Trulicity) <Laurel Reid MD - Last Filed: 09/03/24 07:07> Allergies/Adverse Reactions: Allergies Allergy/AdvReac Type Severity Reaction Status Date / Time No Known Allergies Allergy Verified 09/03/24 06:49 <Laurel Reid MD - Last Filed: 09/03/24 07:07> Review of Systems 2 Review of Systems: All systems reviewed & are unremarkable except as noted in HPI and below <Laurel Reid MD - Last Filed: 09/03/24 07:07> Exam 2 Narrative: General appearance: Well-developed, well-nourished Skin: Normal color Head: Normocephalic, nontraumatic Eyes: Clear conjunctiva ENT: Oropharynx normal, ears normal, nose normal Neck: Supple, nontender Chest and respiratory: Airway patent, no respiratory distress, no accessory muscle use Heart: Regular rate/rhythm Abdomen: Soft, nontender, no organomegaly, quiet bowel sounds Vascular: Normal peripheral pulses, normal capillary refill. Musculoskeletal: Limited range of motion to all over mainly left hip and lower back, with diffuse tenderness. Patient have trouble moving Neurologic: Alert and oriented ?3, FORESTRY ADVISER is normal as tested, no gross motor deficit <Laurel Reid MD - Last Filed: 09/03/24 07:07> Course Vital Signs Vital signs: Vital Signs Temperature 36.7 C 09/03/24 06:33 Pulse Rate 94 09/03/24 06:33 Respiratory Rate 20 09/03/24 06:33 Blood Pressure 122/54 L 09/03/24 06:33 Pulse Oximetry 94 09/03/24 06:33 Oxygen Delivery Nasal Cannula 09/03/24 06:33 Oxygen Flow Rate 2 09/03/24 06:33 Temperature 36.7 C 09/03/24 06:33 Pulse Rate 96 09/03/24 06:45 Respiratory Rate 18 09/03/24 06:45 Blood Pressure 122/54 L 09/03/24 06:45 Pulse Oximetry 97 09/03/24 07:49 Oxygen Delivery Nasal Cannula 09/03/24 07:49 Oxygen Flow Rate 2 09/03/24 07:49 <Laurel Reid MD - Last Filed: 09/03/24 07:07> Vital Signs Temperature 36.7 C 09/03/24 06:33 Pulse Rate 94 09/03/24 06:33 Respiratory Rate 20 09/03/24 06:33 Blood Pressure 122/54 L 09/03/24 06:33 Pulse Oximetry 94 09/03/24 06:33 Oxygen Delivery Nasal Cannula 09/03/24 06:33 Oxygen Flow Rate 2 09/03/24 06:33 Temperature 36.7 C 09/03/24 06:33 Pulse Rate 96 09/03/24 06:45 Respiratory Rate 18 09/03/24 06:45 Blood Pressure 122/54 L 09/03/24 06:45 Pulse Oximetry 97 09/03/24 07:49 Oxygen Delivery Nasal Cannula 09/03/24 07:49 Oxygen Flow Rate 2 09/03/24 07:49 <Daniel Nassar MD - Last Filed: 09/03/24 10:03> MDM - Fall MDM Narrative Medical decision making narrative: patient is a 69-year-old female with a fall at home prior to arrival and has a hip and lower back pain complaint. She also has some respiratory complaints. We will do a workup at this time. We will do a orthopedic workup at this time. Patient was handed off to me at shift change with other physicians starting the case and I picked up the case at this time. We will admit patient to this facility for further treatment and evaluation. The hospitalist for further indulge in to the ovarian abnormalities. He will continue treating the pneumonia. <Daniel Nassar MD - Last Filed: 09/03/24 10:03> Lab Data Attestation: I reviewed the patient's lab results. <Daniel Nassar MD - Last Filed: 09/03/24 10:03> Result diagrams: 09/03/24 07:12 09/03/24 07:12 <Laurel Reid MD - Last Filed: 09/03/24 07:07> Labs: Lab Results 09/03/24 09/03/24 09/03/24 Range/Units 06:37 07:05 07:12 WBC 23.1 H* (4.8-10.8) K/mm3 RBC 4.07 L (4.20-5.40) M/mm3 Hgb 13.2 (11.7-13.8) g/dL Hct 39.1 (35.0-42.0) % MCV 96.1 (78.0-102.0) fL MCH 32.4 H (27.0-31.0) pg MCHC 33.8 (32-36) g/dL RDW 13.1 (11.6-14.4) % Plt Count 220 (150-420) K/mm3 MPV 9.3 (9.2-11.8) fl Immature Gran % (Auto) Not Reportable Neut % (Auto) Not Reportable Lymph % (Auto) Not Reportable Estill % (Auto) Not Reportable Eos % (Auto) Not Reportable Baso % (Auto) Not Reportable Lymph # (Auto) Not Reportable Estill # (Auto) Not Reportable Eos # (Auto) Not Reportable Baso # (Auto) Not Reportable Abs Immat Gran (auto) Not Reportable Absolute Neuts (auto) Not Reportable Absolute Nucleated RBC Not Reportable Total Counted 100 Neutrophils % (Manual) 87 H (46-73) % Band Neutrophils % 0 (0-6) % Lymphocytes % (Manual) 7 L (18-44) % Monocytes % (Manual) 6 (3-9) % Nucleated RBC % Not Reportable Abs Neuts (Manual) 20.09 H (1.7-7.2) K/mm3 Abs Lymphs (Manual) 1.61 (1.1-4.5) K/mm3 Abs Monocytes (Manual) 1.38 H (0.1-0.90) K/mm3 Platelet Estimate Adequate (Adequate) Schistocytes Not Reportable PT 12.6 H (9.50-12.1) Seconds INR 1.2 APTT 27.3 (23.9-30.70) Sec Sodium 136 (136-145) mmol/L Potassium 3.3 L (3.5-5.1) mmol/L Chloride 99 (98-108) mmol/L Carbon Dioxide 28 (21-32) mmol/L Anion Gap 9 (4-12) mmol/L BUN 13 (7-18) mg/dL Creatinine 1.22 H (0.55-1.02) mg/dL Estim Creat Clear Calc 48 ml/min Estimated GFR 44 L (59 - ) Glucose 152 H (70-99) mg/dL POC Capillary Glucose 160 H (65-105) mg/dl Calculated Osmolality 285 (285-295) mOsm/kg Lactic Acid 2.7 H (0.4-2.0) mmol/L Calcium 9.3 (8.5-10.1) mg/dL Total Bilirubin 2.1 H (0.00-1.00) mg/dL AST 48 H (15-37) U/L ALT 26 (14-59) U/L Alkaline Phosphatase 47 (46-116) U/L C-Reactive Protein 4.0 H (0.0-0.9) mg/dL Total Protein 7.5 (6.4-8.2) g/dL Albumin 3.0 L (3.4-5.0) g/dL <Laurel Reid MD - Last Filed: 09/03/24 07:07> Lab Results 09/03/24 09/03/24 09/03/24 Range/Units 06:37 07:05 07:12 WBC 23.1 H* (4.8-10.8) K/mm3 RBC 4.07 L (4.20-5.40) M/mm3 Hgb 13.2 (11.7-13.8) g/dL Hct 39.1 (35.0-42.0) % MCV 96.1 (78.0-102.0) fL MCH 32.4 H (27.0-31.0) pg MCHC 33.8 (32-36) g/dL RDW 13.1 (11.6-14.4) % Plt Count 220 (150-420) K/mm3 MPV 9.3 (9.2-11.8) fl Immature Gran % (Auto) Not Reportable Neut % (Auto) Not Reportable Lymph % (Auto) Not Reportable Estill % (Auto) Not Reportable Eos % (Auto) Not Reportable Baso % (Auto) Not Reportable Lymph # (Auto) Not Reportable Estill # (Auto) Not Reportable Eos # (Auto) Not Reportable Baso # (Auto) Not Reportable Abs Immat Gran (auto) Not Reportable Absolute Neuts (auto) Not Reportable Absolute Nucleated RBC Not Reportable Total Counted 100 Neutrophils % (Manual) 87 H (46-73) % Band Neutrophils % 0 (0-6) % Lymphocytes % (Manual) 7 L (18-44) % Monocytes % (Manual) 6 (3-9) % Nucleated RBC % Not Reportable Abs Neuts (Manual) 20.09 H (1.7-7.2) K/mm3 Abs Lymphs (Manual) 1.61 (1.1-4.5) K/mm3 Abs Monocytes (Manual) 1.38 H (0.1-0.90) K/mm3 Platelet Estimate Adequate (Adequate) Schistocytes Not Reportable PT 12.6 H (9.50-12.1) Seconds INR 1.2 APTT 27.3 (23.9-30.70) Sec Sodium 136 (136-145) mmol/L Potassium 3.3 L (3.5-5.1) mmol/L Chloride 99 (98-108) mmol/L Carbon Dioxide 28 (21-32) mmol/L Anion Gap 9 (4-12) mmol/L BUN 13 (7-18) mg/dL Creatinine 1.22 H (0.55-1.02) mg/dL Estim Creat Clear Calc 48 ml/min Estimated GFR 44 L (59 - ) Glucose 152 H (70-99) mg/dL POC Capillary Glucose 160 H (65-105) mg/dl Calculated Osmolality 285 (285-295) mOsm/kg Lactic Acid 2.7 H (0.4-2.0) mmol/L Calcium 9.3 (8.5-10.1) mg/dL Total Bilirubin 2.1 H (0.00-1.00) mg/dL AST 48 H (15-37) U/L ALT 26 (14-59) U/L Alkaline Phosphatase 47 (46-116) U/L C-Reactive Protein 4.0 H (0.0-0.9) mg/dL Total Protein 7.5 (6.4-8.2) g/dL Albumin 3.0 L (3.4-5.0) g/dL <Daniel Nassar MD - Last Filed: 09/03/24 10:03> ABG Data ABG results: 09/03/24 07:12 Puncture Site Right radial ABG pH 7.46 H ABG pCO2 35.5 ABG pO2 147.6 H ABG HCO3 24.9 ABG O2 Saturation 98.7 H ABG Base Excess 1.5 Oxyhemoglobin 95.4 O2 Delivery Device Room air O2 Liters/Min 0.0 <Laurel Reid MD - Last Filed: 09/03/24 07:07> 09/03/24 07:12 Puncture Site Right radial ABG pH 7.46 H ABG pCO2 35.5 ABG pO2 147.6 H ABG HCO3 24.9 ABG O2 Saturation 98.7 H ABG Base Excess 1.5 Oxyhemoglobin 95.4 O2 Delivery Device Room air O2 Liters/Min 0.0 <Daniel Nassar MD - Last Filed: 09/03/24 10:03> Attestation: I personally reviewed and interpreted this ABG as follows: <Daniel Nassar MD - Last Filed: 09/03/24 10:03> Interpretation: Stable <Daniel Nassar MD - Last Filed: 09/03/24 10:03> Imaging Data Attestation: I personally reviewed and interpreted this imaging study as follows: <Daniel Nassar MD - Last Filed: 09/03/24 10:03> Radiologist's impression: chest x-ray shows a right lower lobe infiltrate CT abdomen and pelvis shows Impression: Marked enlargement of bilateral ovaries, left greater than right, as detailed above. Diagnostic considerations include ovarian hyperthecosis or ovarian hyperstimulation due to underlying gonadotropin secreting tumor or other hormonal imbalance, versus possibly other bilateral ovarian neoplastic/metastatic lesions. Gynecologic and possibly endocrinologic follow up/consultation advised. 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 Cholelithiasis. Right lower lobe consolidation with bronchiectasis and air bronchograms. Appearance is suggestive of chronic consolidation such as atelectasis or scarring. Correlate for acute pneumonia. CT scan of the head was negative for acute process CT hip is negative for acute process CT lumbar spine shows IMPRESSION: Loss of height seen in L2 and L3 most likely chronic. MRI evaluation advised. Multilevel degenerative disc disease with variable degrees of spinal canal stenosis and intervertebral foraminal narrowing. Ovarian masses. Further evaluation advised. Cholelithiasis. Tiny left kidney stone. <Daniel Nassar MD - Last Filed: 09/03/24 10:03> ECG Data EKG #1: Attestation: I personally reviewed and interpreted this ECG as follows: <Daniel Nassar MD - Last Filed: 09/03/24 10:03> ECG completion date: 09/03/24 <Daniel Nassar MD - Last Filed: 09/03/24 10:03> ECG completion time: 07:34 <Daniel Nassar MD - Last Filed: 09/03/24 10:03> EKG Interpretation: normal rate, sinus rhythm, no ectopy, non-specific ST changes, normal QRS, normal QT and NL axis <Daniel Nassar MD - Last Filed: 09/03/24 10:03> Discharge Plan Discharge Clinical Impression: Enlarged ovary Pneumonia Qualifiers: Pneumonia type: due to unspecified organism Laterality: right Lung location: l ower lobe of lung Qualified Code(s): J18.9 - Pneumonia, unspecified organism Fall Qualifiers: Encounter type: initial encounter Qualified Code(s): W19.XXXA - Unspecified fall, initial encounter <Laurel Reid MD - Last Filed: 09/03/24 07:07> Patient Disposition: [facility] <Laurel Reid MD - Last Filed: 09/03/24 07:07> Condition: Stable <Laurel Reid MD - Last Filed: 09/03/24 07:07> Time of Disposition: 10:01 <Laurel Reid MD - Last Filed: 09/03/24 07:07> 10:01 <Daniel Nassar MD - Last Filed: 09/03/24 10:03>
--- NOTE | 2024-09-03 07:02 | PC.NURSE ---
REPORT GIVEN TO JAVIER GALAN
--- NOTE | 2024-09-03 07:20 | PC.NURSE ---
Report received from ADAMA Payan.
[2024-09-03 07:24] LABS: Base Excess ABG 1.5 mmol/L (0-2); HCO3 ABG 24.9 mmol/L (23-29); Oxygen Saturation ABG 98.7 % (95-97); Oxyhemoglobin 95.4 % (94-100); PCO2 ABG 35.5 mmHg (35-45); PO2 ABG 147.6 mmHg (75-85); pH ABG 7.46 (7.35-7.45)
[2024-09-03] MEDS: MORPHINE SULFATE (*CRX) 4 MG/ML INJ IV PUSH (07:24)
[2024-09-03 07:25] LABS: Device ROOM AIR; Hematocrit 39.1 % (35.0-42.0); Hemoglobin 13.2 g/dL (11.7-13.8); Mean Corpuscular HGB Conc 33.8 g/dL (32-36); Mean Corpuscular Hemoglobin 32.4 pg (27.0-31.0); Mean Corpuscular Volume 96.1 fL (78.0-102.0); Mean Platelet Volume 9.3 fl (9.2-11.8); Modified Allen's Test Pass; Platelet Count Result 220 K/mm3 (150-420); Red Blood Count 4.07 M/mm3 (4.20-5.40); Red Cell Distribution Width 13.1 % (11.6-14.4); Site Drawn RIGHT RADIAL
[2024-09-03 07:28] LABS: White Blood Count 23.1 K/mm3 (4.8-10.8)
[2024-09-03 07:46] LABS: Band Neutrophils Percent 0 % (0-6); Neutrophils Absolute Manual 20.09 K/mm3 (1.7-7.2); Neutrophils Percent Manual 87 % (46-73); Total Cells Counted 100
[2024-09-03 07:47] LABS: Lactic Acid Reflex 2.7 mmol/L (0.4-2.0)
[2024-09-03 07:47] LABS: INR 1.2; Lymphocytes Absolute Manual 1.61 K/mm3 (1.1-4.5); Lymphocytes Percent Manual 7 % (18-44); Monocytes Absolute Manual 1.38 K/mm3 (0.1-0.90); Monocytes Percent Manual 6 % (3-9); Partial Thromboplastin Time 27.3 Sec (23.9-30.70); Platelet Estimate Adequate (Adequate); Prothrombin Time 12.6 Seconds (9.50-12.1)
--- NOTE | 2024-09-03 07:50 | PC.NURSE ---
Pt taken to radiology for CT
[2024-09-03 07:52] LABS: Alanine Aminotransferase 26 U/L (14-59); Alkaline Phosphatase 47 U/L (46-116); Anion Gap 9 mmol/L (4-12); Aspartate Amino Transferase 48 U/L (15-37); Bilirubin,Total 2.1 mg/dL (0.00-1.00); Blood Urea Nitrogen 13 mg/dL (7-18); Calcium 9.3 mg/dL (8.5-10.1); Carbon Dioxide 28 mmol/L (21-32); Chloride 99 mmol/L (98-108); Estimated CRCL calculation 48 ml/min; Estimated Glomerular Filt Rate 44; Glucose 152 mg/dL (70-99); Osmolality Calculated 285 mOsm/kg (285-295); Potassium 3.3 mmol/L (3.5-5.1); Sodium 136 mmol/L (136-145); Total Protein 7.5 g/dL (6.4-8.2)
--- NOTE | 2024-09-03 08:12 | PC.NURSE ---
Pt returns from radiology
[2024-09-03] MEDS: PIPERACILLN/TAZ 3.375GM/NS50ML 3.375 GM/50 ML BAG IVPB ×3 (08:18→20:59)
[2024-09-03] MEDS: SODIUM CHLORIDE 0.9% IV 1,000 ML 999 ML IV CONT (08:56)
[2024-09-03 09:19] LABS: Reflex Lactic Acid Yes or No Add Lactic
--- OUTSIDE RECORDS SUMMARY | 2024-09-03 09:25 | XMS_ITS | Clinical Summary ---
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 Lens Left: Eye [employer] [id number] 03/12/2026 DIB00 / [id number] / NA Description:Dr. Martinez confirm ed IOL Iol Tecnis Dib00 - [id number] Implanted:Qty: 1 on 12/11/2023 by Nam Martinez MD at [facility] Lens Right: Eye [employer] [id number] 07/30/2026 DIB00 / [id number] / NA Description:Verified with ep meera and Dr Guido Insurance [facility] MEDICAID Care Teams Collections And Archives Director Relationship Specialty Start Date End Date Rolly Best MD PCP - General FAMILY PRACTICE 11/27/23
--- OUTSIDE RECORDS SUMMARY | 2024-09-03 09:25 | XMS_ITS | Continuity of Care Document ---
Author Organization [facility] Address [address] [place] [address] Phone Care Team Providers Care Motor Vehicle Compliance Analyst Name Role Phone Delroy Calhoun MD Unavailable Unavailable Allergies, Adverse Reactions, Alerts Substance Reaction Status Criticality No Known Allergies Active No Inform ation Medications Medication Instructions Dosage Effective Dates (start - stop) Status Comments lisinopril 20 mg-hydrochlorothi azide 12.5 mg tablet take 1 tablet by oral route every day 1.00 tablet - Active Lasix 20 mg tablet take 1 tablet (20MG) by oral route 2 times every day 20 MG - Active potassium chloride ER 20 mEq tablet,extended release take 1 tablet (20MEQ) by oral route every day with food 20 MEQ - Active Tylenol-Codeine #3 300 mg-30 mg tablet take 1 tablet by oral route 2 times every day as needed 1 tablet - Active avoid drivin g or operate machines Procedures Procedure Date PREV VISIT, NEW, AGE 40-64 Advance Directives Directive Yes / No Effective Date File Name No Information Encounters Encounter Description Practice Location Reason(s) For Visit Diagnoses Date Provider Providers Copied on Encounter [facility], [address], [place], [id number], tel:[phone] [facility] No Information [address], [place], [id number] , [place]. tel:[phone] PREV VISIT, NEW, AGE 40-64 [facility], [address], [id number], tel:[phone] [facility] Physical (chief complaint) Dietary surveillance and counselingRoutine Medical ExamRoutine Medical Exam [address], [place], [place], [id number] , [place]. [phone] Family History Family Member Type Diagnosis Age At Onset Brother Problem (finding) gout Father Problem (finding) Coronary artery disease 60 Mother Problem (finding) Diabetes mellitus Mother Problem (finding) Cancer, unknown Payers Payer name Insurance type Covered libertarian ID Authoriza tion(s) No Information Social History Type Description Quantity Date Captured Comments Sex Female Smoking Status No Information Chief Complaint And Reason For Visit No Information Plan Of Treatment Date Type Action Status Goal Tobacco cessation counseling completed Referral Ordered: MAMMOGRAM, SCREENING ordered Referral Ordered: COLONOSCOPY AND BIOPSY ordered History Of Present Illness Encounter Date Complaint History Of Prese nt Illness No Information Instructions Date Instruction Additional Infor leah Dietary counseling Related to Di etary surveillance counseling Decrease caloric intake Related to Dietary surveillance counseling Assessments Type Assessment Date No Information
--- NOTE | 2024-09-03 09:50 | PC.NURSE ---
sammying machine operator has been called to request bed placement. Pt assigned to bed 203
--- NOTE | 2024-09-03 10:03 | P.HP_ITS ---
H&P: HPI History of Present Illness Date/Time: 09/03/24 10:03 Chief Complaint: Weakness, falls, hypoxia, pneumonia Narrative: This is a 69 year old female patient who lives at home with family who is admitted after she had a few falls from bed complaining of chronic back pain and pain to back of head. Imaging in ER suggests right lower lobe consolidation concerning for pneumonia. 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 Urinalysis collected after IV Zosyn still shows findings consistent with UTI including positive nitrites. Prior urine culture showed E.coli that was resistant to fluoroquinolones. We will continue IV Zosyn on admission for pneumonia and UTI. We will also add azithromycin. Patient requiring 2 L/min oxygen when normally she is on room air at home. ER labs also showed mild hypokalemia. Patient is on oral Lasix and spironolactone. She received 1 L of IV fluids in the ER. Labs also show very mild BISMARK compared to previous results. Will recheck labs in the morning including magnesium and renal function panel. Oral dose of potassium given on admission. Will add magnesium to blood already in lab. Patient was incontinent of urine in the emergency department. She stated that normally she knows when she has to urinate and she is ambulatory and mobile at home. She states though she is having profound weakness right now leading to frequent falls. We will place PT and OT consult on admission as well. Review of Systems Review of Systems: All systems reviewed & are unremarkable except as noted in HPI and below PMFSH Past Medical History Medical History Tobacco abuse Cirrhosis Enlarged ovary Fall UTI (urinary tract infection) Type 2 diabetes mellitus Social History Social History Smoking packs per day: 50 Smoking cigarettes per day: 1,000.0 Smoking status: Heavy tobacco smoker Tobacco type: cigarettes Second hand tobacco smoke exposure: Yes Alcohol intake: never Substance use: never Do You Feel Safe in your Home?: Yes Lack of Transportation: No Lack of Food: Never True Current Housing: I Do Not Have Housing Concerned About Future Housing: No Difficulty Paying Gas/Electric Bills: No Difficulty Paying for Meds: No Currently Unemployed: No Education: High School Diploma/GED Difficulty w/ Childcare or Family Care: No Spiritual care concerns: No Meds Home Medications and Allergies Home Medications ?Medication ?Instructions ?Recorded ?Confirmed ?Type [place] 7.5 mg PO TID PRN Pain 11/17/23 09/03/24 History amitriptyline 10 mg PO QHS 11/17/23 09/03/24 History fluoxetine 20 mg PO DAILY 11/17/23 09/03/24 History furosemide 80 mg PO DAILY 11/17/23 09/03/24 History metformin 500 mg PO BID 11/17/23 09/03/24 History rosuvastatin 20 mg PO DAILY 11/17/23 09/03/24 History spironolactone 50 mg PO BID 11/17/23 09/03/24 History dulaglutide 3 mg/0.5 mL 3 mg subcut WEEKLY 09/03/24 09/03/24 History subcutaneous pen injector (Trulicity) Allergies Allergy/AdvReac Type Severity Reaction Status Date / Time No Known Allergies Allergy Verified 09/03/24 06:49 Vital Signs Vital Signs - 24 hr 09/03/24 06:33 09/03/24 06:45 09/03/24 07:49 Temperature 36.7 C Pulse Rate 94 96 Respiratory Rate 20 18 Blood Pressure 122/54 L 122/54 L Pulse Oximetry 94 92 97 Oxygen Delivery Nasal Cannula Nasal Cannula Nasal Cannula Oxygen Flow Rate 2 2 2 09/03/24 08:16 09/03/24 08:31 09/03/24 08:46 Temperature Pulse Rate 95 97 96 Respiratory Rate Blood Pressure 131/70 128/72 120/71 Pulse Oximetry 96 98 98 Oxygen Delivery Oxygen Flow Rate 09/03/24 09:01 09/03/24 09:16 09/03/24 09:31 Temperature Pulse Rate 95 93 92 Respiratory Rate Blood Pressure 118/69 125/59 L 128/69 Pulse Oximetry 98 99 99 Oxygen Delivery Oxygen Flow Rate 09/03/24 09:46 Temperature Pulse Rate 98 Respiratory Rate Blood Pressure 134/64 Pulse Oximetry Oxygen Delivery Oxygen Flow Rate Exam Narrative: General appearance: Chronically ill appearing, no acute distress Skin: Normal color HEENT: PERRL, no lymphadenopathy noted Chest and respiratory: Course lung sounds, no respiratory distress, supplemental oxygen 2 LPM NC Heart: Regular rate/rhythm Abdomen: Soft, nontender, no organomegaly, quiet bowel sounds Vascular: Normal peripheral pulses, normal capillary refill. Musculoskeletal: Limited range of motion to all over mainly left hip and lower back, with diffuse tenderness. Patient have trouble moving Neurologic: Alert and oriented ?3, BALLPOINT PEN CARTRIDGE TESTER is normal as tested, no gross motor deficit H&P: Results Labs Labs: Short CBC 09/03/24 Range/Units 07:12 WBC 23.1 H* (4.8-10.8) K/mm3 Hgb 13.2 (11.7-13.8) g/dL Hct 39.1 (35.0-42.0) % Plt Count 220 (150-420) K/mm3 BMP 09/03/24 07:12 Sodium 136 Potassium 3.3 L Chloride 99 Carbon Dioxide 28 BUN 13 Creatinine 1.22 H Glucose 152 H Calcium 9.3 Liver Function 09/03/24 Range/Units 07:12 Total Bilirubin 2.1 H (0.00-1.00) mg/dL AST 48 H (15-37) U/L ALT 26 (14-59) U/L Alkaline Phosphatase 47 (46-116) U/L Albumin 3.0 L (3.4-5.0) g/dL Pulse Oximetry SpO2 results: 90% room air, 98% on 2LPM NC Attestation: I personally reviewed and interpreted this pulse oximetry as follows: Interpretation: Patient requires supplemental oxygen on admission but hope to wean promptly ECG Attestation: I personally reviewed and interpreted this ECG as follows: ECG completion date: 09/03/24 ECG completion time: 07:02 Prior ECG tracings: available for review Interpretation: Sinus rhythm rate of 98 AK interval 177 QRS duration 94 QTC 452 QRS axis 79 no STEMI Imaging Chest x-ray: Radiologist's impression: XR chest 1V portable 09/03/2024 07:02 Indication: Shortness of breath. History of COPD. Procedure: AP portable chest Comparison: No prior studies for comparison. Findings: Right basilar airspace consolidation, consistent with pneumonia. Cardiomegaly. No significant effusion. No pneumothorax. Severe degenerative changes of the shoulders. Impression: 1: Right basilar consolidation, consistent with pneumonia. Reviewed, dictated and finalized at location A. CT hip left: Radiologist's impression: Procedure: CT hip LT wo con Ordering provider: Laurel Reid MD History: . fall/ALWAYS HAS HIP PAIN . Comparison: None. Technique: Thin slice axial CT of the No IV contrast was given. Sagittal and coronal reformatted images were also obtained and reviewed. The dose-length product was 543.77 mGy-cm. Findings: BONES: No definite fracture demonstrated. Old healed fracture in the right inferior pubic ramus is noted. JOINT SPACES: Moderately narrowed suggestive of osteoarthritic changes. SOFT TISSUES: Slightly hyperdense areas seen in the pelvis and left side of the abdomen with multiple hypodensities. Further evaluation is advised to exclude ovarian masses. IMPRESSION: No definite acute fracture demonstrated. Hyperdense masses with hypodensity is suggestive of ovarian masses. Further evaluation advised. Reviewed, dictated and finalized at location A. CT scan - abdomen: Radiologist's impression: Non-contrast CT scan of the Abdomen and Pelvis Clinical indication: Left lower quadrant mass Technique: 2.5 mm axial scans were obtained through the abdomen and pelvis without intravenous or oral contrast. Dose reduction technique was used on this scan by utilizing automated exposure control and iterative reconstruction technique. The dose-length product (DLP) was 1594.74 mGy-cm. Findings: Images through the lung bases reveal right lower lobe consolidation with bronchiectasis/air bronchograms.. Multiple gallstones are present. Mildly nodular contour of liver suggests cirrhosis. There are probable splenorenal varices. The kidneys, spleen, pancreas, and adrenals appear normal. There are atherosclerotic calcifications of the aorta. . There is no evidence of bowel obstruction. Images through the pelvis were performed. There is no evidence of ascites or lym phadenopathy. Urinary bladder unremarkable. Left ovary is enlarged measuring 11.8 x 11.0 x 11.1 cm, with several cystic areas within it. There is a similar appearance of enlarged right ovary, which measures 7.6 x 4.6 x 3.5 cm. There is diffuse degenerative spondylosis of the spine. Impression: Marked enlargement of bilateral ovaries, left greater than right, as detailed above. Diagnostic considerations include ovarian hyperthecosis or ovarian hyperstimulation due to underlying gonadotropin secreting tumor or other hormonal imbalance, versus possibly other bilateral ovarian neoplastic/metast atic lesions. Gynecologic and possibly endocrinologic follow up/consultation advised. 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 Cholelithiasis. Right lower lobe consolidation with bronchiectasis and air bronchograms. Appearance is suggestive of chronic consolidation such as atelectasis or scarring. Correlate for acute pneumonia. Reviewed, dictated and finalized at location M. CT scan - head: Radiologist's impression: Non-contrast Head CT History: Multiple falls Technique: Axial non-contrast imaging of the brain was performed. Dose reduction technique was used on this scan by utilizing automated exposure control and iterative reconstruction technique. The dose-length product (DLP) was 681.00 mGy-cm. Findings: There is no evidence of intracranial hemorrhage, mass lesion, or acute infarct. Brain parenchyma appears normal. The ventricles and subarachnoid spaces are normal in size. The calvarium appears normal. The visualized paranasal sinuses and mastoid air cells are clear. Impression: No significant abnormality seen. Reviewed, dictated and finalized at location M. CT Lumbar Spine: Radiologist's impression: CT lumbar spine wo con Ordering provider: Laurel Reid History: 69 years Female with . fall/ALWAYS HAS BACK PAIN . Comparison: None. Technique: CT lumbar spine without contrast. Automated exposure control and iterative reconstruction technique were employed. The dose-length product was 1253.80 mGy-cm. FINDINGS: VERTEBRAE: Loss of height is noted in L1 and L2 which is most likely chronic. MRI evaluation advised. Otherwise, Normal height and alignment. No subluxation or visible acute fracture. Osteopenia of the bones. DISC SPACES: Narrowing of the disc L4-L5. Vacuum phenomena seen at the level of L3-L4 and L5-S1. Multilevel facet joint disease. T11-T12: Severe spinal canal stenosis. Bilateral narrowing of the foramina. T12-L1: No stenosis. L1-L2: No stenosis. L2-L3: No stenosis. L3-L4: Mild spinal canal stenosis secondary to broad based disc bulge, osteophytes, facet arthropathy, and ligamentum flavum hypertrophy. bilateral intervertebral foraminal narrowing by osteophytes. L4-L5: Severe spinal canal stenosis secondary to broad based disc bulge, facet arthropathy, and ligamentum flavum hypertrophy. Bilateral narrowing of the foramina with root compression. L5-S1: No stenosis. PARASPINOUS SOFT TISSUES: Mild atheromatous disease of the abdominal aorta. Cholelithiasis. Highly suggestive of ovarian masses seen in the midline and on the left side. Tiny calcification the left kidney suggestive of a stone. Bilateral sacroiliitis. IMPRESSION: Loss of height seen in L2 and L3 most likely chronic. MRI evaluation advised. Multilevel degenerative disc disease with variable degrees of spinal canal stenosis and intervertebral foraminal narrowing. Ovarian masses. Further evaluation advised. Cholelithiasis. Tiny left kidney stone. Reviewed, dictated and finalized at location A. Assessment and Plan Assessment and plan (1) Sepsis: Code(s): A41.9 - Sepsis, unspecified organism Status: Acute Assessment and Plan: -Elevated WBC, HR faster than 90, RR 20 with hypoxia, elevated lactic acid -Less than 30 mL/kg IV fluids given due to history of cirrhosis and diuretic therapy -Right lower lobe consolidation noted on imaging -Acute hypoxia, on oxygen currently, normally no oxygen -Weakness/falls may be due to infections with sepsis -UA captured after starting IV Zosyn with signs of UTI -Prior UTI was E. coli, resistant to fluoroquinolones -Continue Zosyn, add azithromycin for pneumonia (2) UTI (urinary tract infection): Code(s): N39.0 - Urinary tract infection, site not specified Status: Acute Assessment and Plan: See above (3) Acute hypoxic respiratory failure: Code(s): J96.01 - Acute respiratory failure with hypoxia Status: Acute Assessment and Plan: See above -Does not use CPAP at night (4) Pneumonia: Qualifiers: Laterality: right Lung location: lower lobe of lung Pneumonia type: due to unspecified organism Qualified Code(s): J18.9 - Pneumonia, unspecified organism Code(s): J18.9 - Pneumonia, unspecified organism Status: Acute Assessment and Plan: See above Nebs, abx, Incentive spirometer, Legionella/Pneumococcal Ag testing sent out MRSA screen negative (5) Fall: Qualifiers: Encounter type: initial encounter Qualified Code(s): W19.XXXA - U nspecified fall, initial encounter Code(s): W19.XXXA - Unspecified fall, initial encounter Status: Acute Assessment and Plan: -Multiple falls at home due to chronic back pain and weakness from time to time -Continue home pain medication PRN -PT/OT consult (6) Enlarged ovary: Code(s): N83.8 - Other noninflammatory disorders of ovary, fallopian tube and broad ligament Status: Acute Assessment and Plan: -Known bilateral ovarian hypertrophy -Left ovarian mass is very large and pushing on bowel -No abdominal pain/tenderness present at this time (7) Type 2 diabetes mellitus: Code(s): E11.9 - Type 2 diabetes mellitus without complications Status: Acute Assessment and Plan: -Hemoglobin A1c added to admit labs -Hold metformin due to decrease renal function -ACHS fingerstick glucose with moderate dose SSI ordered -Diet--Diabetic and low sodium (8) Tobacco abuse: Code(s): Z72.0 - Tobacco use Status: Acute Assessment and Plan: -Nicotine patch available (9) Cirrhosis: Code(s): K74.60 - Unspecified cirrhosis of liver Status: Acute Assessment and Plan: -On furosemide and spironolactone -No abdominal pain currently -Weakness but no confusion noted -Check ammonia level if confusion develops (10) BISMARK (acute kidney injury): Code(s): N17.9 - Acute kidney failure, unspecified Status: Acute Assessment and Plan: -BUN 13, Cr 1.22, est CrCl 48, eGFR 44 -Prior results on file = BUN 15, Cr 0.93, est CrCl 61, eGFR 60 -Continue diuretics -S/P 1000 mL IV fluids in ER -Follow daily labs while admitted Plan -Admit for IV antibiotics -PT/OT due to frequent falls/weakness -Wean oxygen as tolerated Quality VTE Prophylaxis VTE prophylaxis: pharmacologic ordered (Lovenox) Total time on this admission 95 minutes Hospitalist MIPS Advance Care Plan I have confirmed that the patient's Advanced Care Plan is present, code status is documented, or surrogate decision maker is listed in patient medical record.: Yes Medication Reconciliation I have utilized all available resources to obtain, update and review the patients current medications (includes all prescriptions, OTC, herbals, cannabis, and nutritional supplements).: Yes
[2024-09-03 10:22] LABS: Add Urine Microscopic? YES; Appearance Urine Sl Cloudy (Clear); Bilirubin Urine Negative (Negative); Blood Urine Negative (Negative); Color Urine Yellow (Yellow); Glucose Urine UA Negative (Negative); Ketones Urine Trace (Negative); Leukocyte Esterase Ur 1+ LEU/UL (Negative); Nitrate Urine Positive (Negative); Protein Urine 1+ (Negative); Specific Grav Ur 1.015 (1.010-1.020)
[2024-09-03 10:23] LABS: Lactic Acid 2.2 mmol/L (0.4-2.0)
[2024-09-03 10:30] LABS: Bacteria Urine 3+ /hpf; RBC Urine None seen /hpf (0-2); Squamous Epithelial Cell Urine Few /hpf (Few)
--- NOTE | 2024-09-03 11:17 | ADMGEN ---
1030 This patient, Christina Ramirez, was admitted to 2nd Floor Room 203-1. patient here for pneumonia and 2 falls at home this am. Patient/family oriented to hospital policies and general routines including ID bracelet, bed and alarms, visiting hours, pain management, procedures, bathroom and other care routines, personal items, smoking policy, room service/diet, and visiting hours. Information on how to activate the Rapid Response Team has been discussed. Patient/Family are encouraged to report perceived risks to care and to ask questions if they do not understand what they are told or what they should do.
[2024-09-03 12:14] LABS: Glucose Point of Care 110 mg/dl (65-105)
[2024-09-03] MEDS: IPRATROPIUM 0.5 MG/ALBUTEROL SULFATE 2.5 MG AMPUL.NEB 3 ML INHALATION ×2 (12:42→16:56)
[2024-09-03] MEDS: FUROSEMIDE 40 MG TABLET 80 MG PO (13:35)
[2024-09-03] MEDS: POTASSIUM CHLORIDE 20 MEQ ER TABLET 40 MEQ PO (13:36)
[2024-09-03 14:10] LABS: Magnesium 1.3 mg/dL (1.8-2.4)
[2024-09-03 14:14] LABS: Hemoglobin A1C 5.3 % (<5.7)
[2024-09-03] MEDS: AZITHROMYCIN 250 MG TABLET 500 MG PO (14:43)
[2024-09-03] MEDS: NICOTINE (*PBKC) 21 MG PATCH 1 PATCH TRANSDERM (14:43)
[2024-09-03] MEDS: MAGNESIUM SULF 2 GM/WATER 50ML 2 GM/50 ML BAG IVPB (14:43)
[2024-09-03] MEDS: DOCUSATE SODIUM 100 MG CAPSULE PO (17:29)
[2024-09-03] MEDS: SPIRONOLACTONE 25 MG TABLET 50 MG PO (17:29)
[2024-09-03 17:31] LABS: Glucose Point of Care 101 mg/dl (65-105)
[2024-09-03] MEDS: AMITRIPTYLINE HCL 10 MG TABLET BY MOUTH (20:59)
[2024-09-03 22:12] LABS: Glucose Point of Care 111 mg/dl (65-105)
[2024-09-04] VITALS (8 sets, daily range): BP systolic 114–125; BP diastolic 55–60; PULSE 69–91; RESP 14–20; TEMP 36.4–36.8; O2SAT 92–98
[2024-09-04] MEDS: IPRATROPIUM 0.5 MG/ALBUTEROL SULFATE 2.5 MG AMPUL.NEB 3 ML INHALATION ×3 (00:53→16:47)
[2024-09-04] MEDS: PIPERACILLN/TAZ 3.375GM/NS50ML 3.375 GM/50 ML BAG IVPB ×4 (01:57→19:43)
[2024-09-04 05:50] LABS: Basophils Absolute Auto 0.11 K/mm3 (0.00-0.10); Eosinophils Absolute Auto 0.19 K/mm3 (0.02-0.50); Eosinophils Percent Auto 1.7 % (1.0-6.0); Hematocrit 36.1 % (35.0-42.0); Hemoglobin 12.1 g/dL (11.7-13.8); Immature Granulocyte Absolute 0.06 K/mm3 (0.00-0.00); Immature Granulocyte Percent A 0.5 % (0.0-0.0); Lymphocytes Absolute Auto 1.27 K/mm3 (1.10-4.50); Lymphocytes Percent Auto 11.1 % (18.0-42.0); Mean Corpuscular HGB Conc 33.5 g/dL (32-36); Mean Corpuscular Volume 95.5 fL (78.0-102.0); Mean Platelet Volume 9.4 fl (9.2-11.8); Monocytes Absolute Auto 1.39 K/mm3 (0.10-0.90); Monocytes Percent Auto 12.2 % (2.0-11.0); Neutrophils Absolute Auto 8.38 K/mm3 (1.70-7.20); Neutrophils Percent Auto 73.5 % (50.0-70.0); Platelet Count Result 201 K/mm3 (150-420); Red Blood Count 3.78 M/mm3 (4.20-5.40); Red Cell Distribution Width 13.2 % (11.6-14.4); White Blood Count 11.4 K/mm3 (4.8-10.8)
[2024-09-04 06:07] LABS: Alanine Aminotransferase 32 U/L (14-59); Albumin Level 2.7 g/dL (3.4-5.0); Alkaline Phosphatase 35 U/L (46-116); Anion Gap 7 mmol/L (4-12); Aspartate Amino Transferase 36 U/L (15-37); Bilirubin,Total 1.6 mg/dL (0.00-1.00); Blood Urea Nitrogen 12 mg/dL (7-18); Calcium 9.1 mg/dL (8.5-10.1); Carbon Dioxide 30 mmol/L (21-32); Chloride 101 mmol/L (98-108); Estimated Glomerular Filt Rate 47; Glucose 92 mg/dL (70-99); Magnesium 1.6 mg/dL (1.8-2.4); Osmolality Calculated 285 mOsm/kg (285-295); Sodium 138 mmol/L (136-145)
[2024-09-04 06:49] LABS: Total Protein 6.6 g/dL (6.4-8.2)
[2024-09-04] MEDS: NICOTINE (*PBKC) 21 MG PATCH 1 PATCH TRANSDERM (10:06)
[2024-09-04] MEDS: DOCUSATE SODIUM 100 MG CAPSULE PO ×2 (10:07→17:28)
[2024-09-04] MEDS: SPIRONOLACTONE 25 MG TABLET 50 MG PO ×2 (10:08→17:28)
[2024-09-04] MEDS: AZITHROMYCIN 250 MG TABLET 500 MG PO (10:08)
[2024-09-04] MEDS: ROSUVASTATIN 10 MG TABLET 20 MG PO (10:08)
[2024-09-04] MEDS: FLUoxetine HCL 20 MG CAPSULE PO (10:09)
[2024-09-04] MEDS: FUROSEMIDE 40 MG TABLET 80 MG PO (10:09)
[2024-09-04] MEDS: ENOXAPARIN 40 MG/0.4 ML SYRINGE SUB-Q (10:09)
[2024-09-04 10:23] LABS: Ammonia 60 umol/L (11-32)
[2024-09-04 11:59] LABS: Glucose Point of Care 83 mg/dl (65-105)
--- NOTE | 2024-09-04 12:01 | P.PNIM_ITS ---
Progress Note: A&P Assessment and Plan (1) Sepsis: Code(s): A41.9 - Sepsis, unspecified organism Status: Acute Assessment and Plan: Elevated WBC, HR faster than 90, RR 20 with hypoxia, elevated lactic acid, se condary to PNA and UTI. CXR Right lower lobe consolidation noted on imaging * Continue Zosyn, add azithromycin for pneumonia and UTI * No IV fluids hemodynamically stable patient with history of cirrhosis * Blood cultures NGTD 24 hours (2) Acute hypoxic respiratory failure: Code(s): J96.01 - Acute respiratory failure with hypoxia Status: Acute Assessment and Plan: See above * Acute hypoxia POA * Supplemental oxygen as needed currently leading to room air (3) UTI (urinary tract infection): Code(s): N39.0 - Urinary tract infection, site not specified Status: Acute Assessment and Plan: UA captured after starting IV Zosyn with signs of UTI, Prior UTI was E. coli, resistant to fluoroquinolones * Continue IV Zosyn pending cultures * Blood cultures pending no growth times 24 hours (4) Pneumonia: Qualifiers: Laterality: right Lung location: lower lobe of lung Pneumonia type: due to unspecified organism Qualified Code(s): J18.9 - Pneumonia, unspecified organism Code(s): J18.9 - Pneumonia, unspecified organism Status: Acute Assessment and Plan: CXR Right lower lobe consolidation noted on imaging * Nebs, abx, * Incentive spirometer, * Legionella/Pneumococcal Ag testing sent out * MRSA screen negative * serail CBC WBC trending down * Oxygen PRN (5) Fall: Qualifiers: Encounter type: initial encounter Qualified Code(s): W19.XXXA - Unspecified fall, initial encounter Code(s): W19.XXXA - Unspecified fall, initial encounter Status: Acute Assessment and Plan: Multiple falls at home due to chronic back pain and weakness from time to time * Continue home pain medication PRN * PT/OT consult plan for swing bed (6) Enlarged ovary: Code(s): N83.8 - Other noninflammatory disorders of ovary, fallopian tube and broad ligament Status: Acute Assessment and Plan: Known bilateral ovarian hypertrophy Left ovarian mass is very large and pushing on bowel * No abdominal pain/tenderness present at this time * Patient OBGYN following outpatient. (7) Type 2 diabetes mellitus: Code(s): E11.9 - Type 2 diabetes mellitus without complications Status: Acute Assessment and Plan: * Hold metformin due to decrease renal function * ACHS fingerstick glucose with moderate dose SSI ordered * Diet--Diabetic * hypoglycemic protocol (8) Tobacco abuse: Code(s): Z72.0 - Tobacco use Status: Acute Assessment and Plan: * Nicotine patch available * Encouraged smoking cessation (9) Cirrhosis: Code(s): K74.60 - Unspecified cirrhosis of liver Status: Acute Assessment and Plan: * Continue furosemide and spironolactone * Elevated ammonia level added lactulose b.i.d. (10) BISMARK (acute kidney injury): Code(s): N17.9 - Acute kidney failure, unspecified Status: Acute Assessment and Plan: BUN 13, Cr 1.22, est CrCl 48, eGFR 44, Prior results on file = BUN 15, Cr 0.93, est CrCl 61, eGFR 60 * Continue diuretics * S/P 1000 mL IV fluids in ER * Follow daily labs while admitted * Avoid nephrotoxic medication Plan Code status: Full code per patient DVT prophylaxis: Lovenox Stress ulcer prophylaxis: NA PT/OT notes: PT/OT Disposition: Patient continues admission for treatment of pneumonia UTI and sepsis, PT/OT to see attempt to swing for rehab and weakness prior to returning home. Time Spent With Patient Time with patient: 15 - 25 minutes Subjective Date/time seen: 09/04/24 12:01 Interval history: Patient is a 69-year-old female who presented to the emergency department due to frequent falls hypoxia pneumonia tract infection admitted for further evaluation and treatment. 09/04/2024: Patient with no complaints except she does feel weak, denied CP, SOB. She was alert and oriented and able to answer questions appropriately. Review of Systems Review of Systems: All systems reviewed & are unremarkable except as noted in HPI and below Exam Narrative: General appearance: Chronically ill appearing, no acute distress Skin: Normal color Chest and respiratory: Diminished at bases otherwise clear to auscultation Heart:RRR Abdomen: Soft, nontender, no organomegaly Musculoskeletal: Limited range of motion to all over mainly left hip and lower back, with diffuse tenderness. Patient have trouble moving Neurologic: Alert and oriented ?3 Psych: Flat effect Objective Data Vital Signs Vital Signs: Vital Signs - 24 hr 09/03/24 12:38 09/03/24 12:40 09/03/24 12:50 Temperature Pulse Rate 94 94 93 Respiratory Rate 16 20 20 Blood Pressure Pulse Oximetry 90 90 98 Oxygen Delivery Room Air 09/03/24 14:00 09/03/24 14:08 09/03/24 16:00 Temperature 98 F Pulse Rate 84 Respiratory Rate 20 Blood Pressure 138/78 Pulse Oximetry 94 94 92 Oxygen Delivery Room Air Room Air Room Air 09/03/24 16:56 09/03/24 17:08 09/03/24 20:00 Temperature Pulse Rate 88 86 88 Respiratory Rate 20 20 20 Blood Pressure Pulse Oximetry 93 98 92 Oxygen Delivery Room Air 09/04/24 00:00 09/04/24 01:20 Temperature 97.5 F L Pulse Rate 90 91 Respiratory Rate 18 Blood Pressure 125/55 L Pulse Oximetry 92 97 Oxygen Delivery Room Air Intake/Output Intake/Output: Intake & Output 09/01/24 09/02/24 09/03/24 09/04/24 23:59 23:59 23:59 23:59 Intake Total 2240 550 Output Total 500 500 Balance 1740 50 Meds/Results Medications: Active Medications Generic Name Dose Route Start Last Admin Trade Name Freq PRN Reason Stop Dose Admin Acetaminophen 650 mg 09/03/24 11:43 Acetaminophen 325 Mg Tablet PO Q4H PRN Pain Rated 5 or Less, Fever Hydrocodone Bitart/Acetaminophen 1 tab 09/03/24 12:02 Hydrocodone/Acetaminophen (*Crx) 7.5-325 Mg Tablet PO TID PRN Pain Rated 6-10 Albuterol/Ipratropium 3 ml 09/03/24 12:30 09/04/24 00:53 Ipratropium 0.5 Mg/Albuterol Sulfate 2.5 Mg Ampul.Neb 3 Ml INHALATION 3 ml Q6HRT MOUNA Administration Amitriptyline HCl 10 mg 09/03/24 21:00 09/03/24 20:59 Amitriptyline Hcl 10 Mg Tablet BY MOUTH 10 mg HS MOUNA Administration Azithromycin 500 mg 09/03/24 13:40 09/04/24 10:08 Azithromycin 250 Mg Tablet PO 09/07/24 09:01 500 mg DAILY MOUNA Administration Bisacodyl 5 mg 09/03/24 11:43 Bisacodyl 5 Mg Tablet Ec PO DAILY PRN Constipation Dextrose 12.5 gm 09/03/24 11:48 Dextrose 50% 25 Gm/50 Ml Syringe IV PUSH PRN PRN Hypoglycemia Protocol Docusate Sodium 100 mg 09/03/24 17:00 09/04/24 10:07 Docusate Sodium 100 Mg Capsule PO 100 mg BID MOUNA Administration Enoxaparin Sodium 40 mg 09/04/24 09:00 09/04/24 10:09 Enoxaparin 40 Mg/0.4 Ml Syringe SUB-Q 40 mg DAILY MOUNA Administration Fluoxetine HCl 20 mg 09/04/24 09:00 09/04/24 10:09 Fluoxetine Hcl 20 Mg Capsule PO 20 mg DAILY MOUNA Administration Furosemide 80 mg 09/03/24 12:00 09/04/24 10:09 Furosemide 40 Mg Tablet PO 80 mg DAILY MOUNA Administration Glucagon 1 mg 09/03/24 11:48 Glucagon For Inj 1 Mg Vial IM PRN PRN Hypoglycemia Protocol Glucose 15 gm 09/03/24 11:48 Glucose Oral Gel 15 Gm Of Glucse In 37.5 Gm Tube PO PRN PRN Hypoglycemia Protocol Piperacillin/Tazobactam/Dextrose 3.375 gm in 50 mls @ 100 mls/hr 09/03/24 14:00 09/04/24 11:10 Zosyn 3.375 Gm/Ns 50 Ml IVPB 100 mls/hr Q6H MOUNA Administration Dextrose 1,000 mls @ 100 mls/hr 09/03/24 11:48 Dextrose 5% 1,000 Ml IVPB PRN PRN Hypoglycemia Protocol Insulin Human Lispro 3 - 6 units 09/03/24 12:00 09/04/24 10:10 Insulin Human Lispro (*Bkc) 1,000 Units/10 Ml Vial SUB-Q Not Given TIDWM MOUNA Protocol Nicotine 1 patch 09/03/24 14:05 09/04/24 10:06 Nicotine (*Pbkc) 21 Mg Patch TRANSDERM 1 patch DAILY MOUNA Administration Rosuvastatin Calcium 20 mg 09/04/24 09:00 09/04/24 10:08 Rosuvastatin 10 Mg Tablet PO 20 mg QAM MOUNA Administration Spironolactone 50 mg 09/03/24 17:00 09/04/24 10:08 Spironolactone 25 Mg Tablet PO 50 mg BID MOUNA Administration Radiology Results: ITS Impressions Chest X-Ray 09/03/24 07:17 Impression: 1: Right basilar consolidation, consistent with pneumonia. Hip CT 09/03/24 08:26 IMPRESSION: No definite acute fracture demonstrated. Hyperdense masses with hypodensity is suggestive of ovarian masses. Further evaluation advised. Abdomen/Pelvis CT 09/03/24 08:28 Impression: Marked enlargement of bilateral ovaries, left greater than right, as detailed above. Diagnostic considerations include ovarian hyperthecosis or ovarian hyperstimulation due to underlying gonadotropin secreting tumor or other hormonal imbalance, versus possibly other bilateral ovarian neoplastic/metastatic lesions. Gynecologic and possibly endocrinologic follow up/consultation advised. 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 Cholelithiasis. Right lower lobe consolidation with bronchiectasis and air bronchograms. Appearance is suggestive of chronic consolidation such as atelectasis or scarring. Correlate for acute pneumonia. Head CT 09/03/24 08:28 Impression: No significant abnormality seen. Lumbar Spine CT 09/03/24 08:41 IMPRESSION: Loss of height seen in L2 and L3 most likely chronic. MRI evaluation advised. Multilevel degenerative disc disease with variable degrees of spinal canal stenosis and intervertebral foraminal narrowing. Ovarian masses. Further evaluation advised. Cholelithiasis. Tiny left kidney stone. Labs Labs: Laboratory Results - last 24 hr 09/03/24 09/03/24 09/03/24 11:48 12:13 13:39 WBC RBC Hgb Hct MCV MCH MCHC RDW Plt Count MPV Immature Gran % (Auto) Neut % (Auto) Lymph % (Auto) Frontier % (Auto) Eos % (Auto) Baso % (Auto) Lymph # (Auto) Frontier # (Auto) Eos # (Auto) Baso # (Auto) Abs Immat Gran (auto) Absolute Neuts (auto) Absolute Nucleated RBC Nucleated RBC % Sodium Potassium Chloride Carbon Dioxide Anion Gap BUN Creatinine Estim Creat Clear Calc Estimated GFR Glucose POC Capillary Glucose 110 H Hemoglobin A1c 5.3 Calculated Osmolality Calcium Magnesium 1.3 L Total Bilirubin AST ALT Alkaline Phosphatase Ammonia Total Protein Albumin 09/03/24 09/03/24 09/04/24 17:27 22:07 05:10 WBC RBC Hgb Hct MCV MCH MCHC RDW Plt Count MPV Immature Gran % (Auto) Neut % (Auto) Lymph % (Auto) Frontier % (Auto) Eos % (Auto) Baso % (Auto) Lymph # (Auto) Frontier # (Auto) Eos # (Auto) Baso # (Auto) Abs Immat Gran (auto) Absolute Neuts (auto) Absolute Nucleated RBC Nucleated RBC % Sodium 138 Potassium 3.0 L Chloride 101 Carbon Dioxide 30 Anion Gap 7 BUN 12 Creatinine 1.16 H Estim Creat Clear Calc Not Reportable Estimated GFR 47 L Glucose 92 POC Capillary Glucose 101 111 H Hemoglobin A1c Calculated Osmolality 285 Calcium 9.1 Magnesium 1.6 L Total Bilirubin 1.6 H AST 36 ALT 32 Alkaline Phosphatase 35 L Ammonia Total Protein 6.6 Albumin 2.7 L 09/04/24 09/04/24 09/04/24 05:11 09:14 11:55 WBC 11.4 H RBC 3.78 L Hgb 12.1 Hct 36.1 MCV 95.5 MCH 32.0 H MCHC 33.5 RDW 13.2 Plt Count 201 MPV 9.4 Immature Gran % (Auto) 0.5 H Neut % (Auto) 73.5 H Lymph % (Auto) 11.1 L Frontier % (Auto) 12.2 H Eos % (Auto) 1.7 Baso % (Auto) 1.0 Lymph # (Auto) 1.27 Frontier # (Auto) 1.39 H Eos # (Auto) 0.19 Baso # (Auto) 0.11 H Abs Immat Gran (auto) 0.06 H Absolute Neuts (auto) 8.38 H Absolute Nucleated RBC 0.00 Nucleated RBC % 0.0 Sodium Potassium Chloride Carbon Dioxide Anion Gap BUN Creatinine Estim Creat Clear Calc Estimated GFR Glucose POC Capillary Glucose 83 Hemoglobin A1c Calculated Osmolality Calcium Magnesium Total Bilirubin AST ALT Alkaline Phosphatase Ammonia 60 H Total Protein Albumin Quality VTE Prophylaxis VTE prophylaxis: pharmacologic ordered (Lovenox) -Patient's previous records reviewed on admission -ER notes reviewed in detail on admission -discussed all findings and current treatment plan with patient/Family/POA -Consultations reviewed for recommendations -Patient's disposition for safe discharge discussed with top case assembler Dictation performed by link bird direct speech recognition software, therefore continuous conveyor screen drier variants and typographical errors may occur. Hospitalist MIPS Advance Care Plan I have confirmed that the patient's Advanced Care Plan is present, code status is documented, or surrogate decision maker is listed in patient medical record.: Yes Medication Reconciliation I have utilized all available resources to obtain, update and review the patients current medications (includes all prescriptions, OTC, herbals, cannabis, and nutritional supplements).: Yes The patient is not eligible for med reconciliation; the patient is in a emergent medical situation where delaying treatment would jeopardize the patients health.: No
[2024-09-04] MEDS: MAGNESIUM SULF 2 GM/WATER 50ML 2 GM/50 ML BAG IVPB (13:08)
[2024-09-04] MEDS: POTASSIUM CHLORIDE 20 MEQ PACKET (FOR LIQUID) 40 MEQ PO (13:22)
[2024-09-04 16:42] LABS: Glucose Point of Care 111 mg/dl (65-105)
[2024-09-04] MEDS: LACTULOSE 20 GM/30 ML UDC PO (17:28)
[2024-09-04] MEDS: AMITRIPTYLINE HCL 10 MG TABLET BY MOUTH (21:51)
[2024-09-04 21:58] LABS: Glucose Point of Care 101 mg/dl (65-105)
[2024-09-05] VITALS: BP 124/65; PULSE 85; RESP 14; TEMP 36.6; O2SAT 90
[2024-09-05] MEDS: IPRATROPIUM 0.5 MG/ALBUTEROL SULFATE 2.5 MG AMPUL.NEB 3 ML INHALATION ×2 (01:15→05:49)
[2024-09-05] MEDS: PIPERACILLN/TAZ 3.375GM/NS50ML 3.375 GM/50 ML BAG IVPB ×2 (01:16→09:31)
[2024-09-05 01:20] VITALS: O2SAT 90
[2024-09-05 05:37] LABS: Basophils Absolute Auto 0.11 K/mm3 (0.00-0.10); Basophils Percent Auto 1.4 % (0.0-1.0); Eosinophils Absolute Auto 0.29 K/mm3 (0.02-0.50); Eosinophils Percent Auto 3.6 % (1.0-6.0); Hematocrit 37.4 % (35.0-42.0); Hemoglobin 12.4 g/dL (11.7-13.8); Immature Granulocyte Absolute 0.03 K/mm3 (0.00-0.00); Immature Granulocyte Percent A 0.4 % (0.0-0.0); Lymphocytes Absolute Auto 1.43 K/mm3 (1.10-4.50); Lymphocytes Percent Auto 17.7 % (18.0-42.0); Mean Corpuscular HGB Conc 33.2 g/dL (32-36); Mean Corpuscular Hemoglobin 31.8 pg (27.0-31.0); Mean Corpuscular Volume 95.9 fL (78.0-102.0); Monocytes Absolute Auto 1.09 K/mm3 (0.10-0.90); Monocytes Percent Auto 13.5 % (2.0-11.0); Neutrophils Absolute Auto 5.11 K/mm3 (1.70-7.20); Neutrophils Percent Auto 63.4 % (50.0-70.0); Platelet Count Result 220 K/mm3 (150-420); Red Cell Distribution Width 13.5 % (11.6-14.4); White Blood Count 8.1 K/mm3 (4.8-10.8)
[2024-09-05 05:47] LABS: Ammonia 46 umol/L (11-32)
[2024-09-05 05:50] VITALS: PULSE 80; RESP 20; O2SAT 93
[2024-09-05 06:02] VITALS: PULSE 82; RESP 18; O2SAT 96
[2024-09-05 06:26] LABS: Chloride 105 mmol/L (98-107); Potassium 3.1 mmol/L (3.4-5.0); Sodium 139 mmol/L (137-145)
[2024-09-05 06:27] LABS: Alanine Aminotransferase 25 U/L (6-35); Anion Gap 2 mmol/L (4-12); Aspartate Amino Transferase 40 U/L (14-36); Bilirubin,Total 1.5 mg/dL (0.2-1.3); Blood Urea Nitrogen 13 mg/dL (7-17); Calcium 8.8 mg/dL (8.4-10.2); Carbon Dioxide 32 mmol/L (22-30); Estimated CRCL calculation 65 ml/min; Estimated Glomerular Filt Rate > 60; Glucose 90 mg/dL (65-110); Magnesium 1.5 mg/dL (1.6-2.3); Osmolality Calculated 288 mOsm/kg (285-295); Total Protein 6.8 g/dL (6.3-8.2)
[2024-09-05 06:28] LABS: Albumin Level 3.2 g/dL (3.5-5.1); Alkaline Phosphatase 57 U/L (38-126)
[2024-09-05 07:45] VITALS: BP 115/68; PULSE 93; RESP 18; TEMP 36.1; O2SAT 94
[2024-09-05 08:13] LABS: Glucose Point of Care 100 mg/dl (65-105)
[2024-09-05 08:35] VITALS: PULSE 93; RESP 18; O2SAT 94
[2024-09-05] MEDS: POTASSIUM CHLORIDE 20 MEQ PACKET (FOR LIQUID) 40 MEQ PO (09:32)
[2024-09-05] MEDS: DOCUSATE SODIUM 100 MG CAPSULE PO (09:33)
[2024-09-05] MEDS: NICOTINE (*PBKC) 21 MG PATCH 1 PATCH TRANSDERM (09:33)
[2024-09-05] MEDS: LACTULOSE 20 GM/30 ML UDC PO (09:33)
[2024-09-05] MEDS: ENOXAPARIN 40 MG/0.4 ML SYRINGE SUB-Q (09:33)
[2024-09-05] MEDS: ROSUVASTATIN 10 MG TABLET 20 MG PO (09:33)
[2024-09-05] MEDS: FUROSEMIDE 40 MG TABLET 80 MG PO (09:34)
[2024-09-05] MEDS: AZITHROMYCIN 250 MG TABLET 500 MG PO (09:34)
[2024-09-05] MEDS: SPIRONOLACTONE 25 MG TABLET 50 MG PO (09:34)
[2024-09-05] MEDS: FLUoxetine HCL 20 MG CAPSULE PO (09:34)
--- NOTE | 2024-09-05 10:19 | PC.NURSE ---
Recieved microbiology report from [employer] via fax. [employer] made aware.
[2024-09-05] MEDS: MAGNESIUM SULF 2 GM/WATER 50ML 2 GM/50 ML BAG IVPB (11:00)
--- NOTE | 2024-09-05 11:25 | PC.NURSE ---
Addendum entered by Stefani Yuen RN 09/05/24 14:04: IV site to left wrist left in place due to patient continuing to receive IV antibiotics as a skilled swing bed. Original Note: Patient discharged to skilled swing bed.
--- NOTE | 2024-09-05 11:26 | PM.DS ---
DS: Admitting Diagnosis Discharge Date 09/05/2024 Admitting Diagnosis Sepsis/Pneumonia/UTI/Acute Respiratory failure with hypoxia DS: Discharge Diagnosis Discharge Diagnosis (1) Sepsis: Code(s): A41.9 - Sepsis, unspecified organism Status: Acute (2) Acute hypoxic respiratory failure: Code(s): J96.01 - Acute respiratory failure with hypoxia Status: Acute (3) UTI (urinary tract infection): Code(s): N39.0 - Urinary tract infection, site not specified Status: Acute (4) Pneumonia: Qualifiers: Laterality: right Lung location: lower lobe of lung Pneumonia type: due to unspecified organism Qualified Code(s): J18.9 - Pneumonia, unspecified organism Code(s): J18.9 - Pneumonia, unspecified organism Status: Acute (5) Fall: Qualifiers: Encounter type: initial encounter Qualified Code(s): W19.XXXA - Unspecified fall, initial encounter Code(s): W19.XXXA - Unspecified fall, initial encounter Status: Acute (6) Enlarged ovary: Code(s): N83.8 - Other noninflammatory disorders of ovary, fallopian tube and broad ligament Status: Acute (7) Type 2 diabetes mellitus: Code(s): E11.9 - Type 2 diabetes mellitus without complications Status: Acute (8) Tobacco abuse: Code(s): Z72.0 - Tobacco use Status: Acute (9) Cirrhosis: Code(s): K74.60 - Unspecified cirrhosis of liver Status: Acute (10) BISMARK (acute kidney injury): Code(s): N17.9 - Acute kidney failure, unspecified Status: Acute DS: Summary Hospital Course Reason for hospitalization: Sepsis/Pneumonia/UTI/Acute Respiratory failure with hypoxia Hospital Course: Admission This is a 69 year old female patient who lives at home with family who is admitted after she had a few falls from bed complaining of chronic back pain and pain to back of head. Imaging in ER suggests right lower lobe consolidation concerning for pneumonia. 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 Urinalysis collected after IV Zosyn still shows findings consistent with UTI including positive nitrites. Prior urine culture showed E.coli that was resistant to fluoroquinolones. We will continue IV Zosyn on admission for pneumonia and UTI. We will also add azithromycin. Patient requiring 2 L/min oxygen when normally she is on room air at home. ER labs also showed mild hypokalemia. Patient is on oral Lasix and spironolactone. She received 1 L of IV fluids in the ER. Labs also show very mild BISMARK compared to previous results. Will recheck labs in the morning including magnesium and renal function panel. Oral dose of potassium given on admission. Will add magnesium to blood already in lab. Patient was incontinent of urine in the emergency department. She stated that normally she knows when she has to urinate and she is ambulatory and mobile at home. She states though she is having profound weakness right now leading to frequent falls. Hospital Course: Sepsis was evidence by Elevated WBC, HR faster than 90, RR 20 with hypoxia, elevated lactic acid, secondary to PNA and UTI. CXR Right lower lobe consolidation noted on imaging, I Continued Zosyn, add azithromycin for pneumonia and UTI No IV fluids hemodynamically stable patient with history of cirrhosis Blood cultures did show Gram-positive cocci in pairs still discharge to swing however she will remain on IV Zosyn pending final culture and sensitivities as well as follow-up cultures to determine if we can deescalate to an oral antibiotic. patient has pneumonia could be possible Streptococcus causing bacteremia CXR was showing right lower lobe consolidation she was continued on nebulizer treatments, IV Zosyn, incentive spirometer full respiratory panel Legionella pneumococcal was pending at time of discharge will continue to monitor. She did have Acute hypoxia present on admission and was placed on supplemental oxygen which resolved quickly and remained on room air during her hospitalization UA captured after starting IV Zosyn with signs of UTI, Prior UTI was E. coli, resistant to fluoroquinolones, patient was placed on IV Zosyn and UA growing a Gram-negative bacilli continue on IV Zosyn pending final cultures due to bacteremia this will also cover for her UTI. PT/ OT was ordered and was recommended patient discharged to swing bed for continued rehabilitation needs and generalized weakness likely secondary to infectious process. on CT patient was also noted to have bilateral ovarian hypertrophy and a left ovarian mass patient is aware of mass and has been following outpatient with in tube conversion technician. patient with history of cirrhosis ammonia level was elevated 60 patient reported she had not been taking her home medications I did add lactulose twice a day for elevated ammonia levels which improved and ordered daily lactulose 20 mg at discharge. patient seen and assessed on day of discharge to swing bed she is up in chair reporting feeling better but did have moderate cough with mild secretions remained on room air and still reporting generalized weakness. patient was discharged to swing bed will remain on IV antibiotic therapy pending final cultures plan for rehabilitation to return home with daughter. Status at Discharge Functional status at discharge: uses cane/walker Overall status at discharge: patient is progressing back to baseline Time Spent with Patient Time attestation: Total time spent providing and/or coordinating discharge services: Time spent: Greater than 30 minutes Exam Narrative: General appearance: Chronically ill appearing, no acute distress Skin: Normal color Chest and respiratory: Diminished at bases otherwise clear to auscultation Heart:RRR Abdomen: Soft, nontender, no organomegaly Musculoskeletal: Limited range of motion to all over mainly left hip and lower back, with diffuse tenderness. Patient have trouble moving Neurologic: Alert and oriented ?3 Psych: Flat effect DS: Data Data Completed and Pending Labs on day of discharge: Labs from last 24 hours 09/05/24 09/05/24 09/04/24 08:11 05:23 21:58 WBC 8.1 RBC 3.90 L Hgb 12.4 Hct 37.4 MCV 95.9 MCH 31.8 H MCHC 33.2 RDW 13.5 Plt Count 220 MPV 9.0 L Immature Gran % (Auto) 0.4 H Neut % (Auto) 63.4 Lymph % (Auto) 17.7 L [place] % (Auto) 13.5 H Eos % (Auto) 3.6 Baso % (Auto) 1.4 H Lymph # (Auto) 1.43 [place] # (Auto) 1.09 H Eos # (Auto) 0.29 Baso # (Auto) 0.11 H Abs Immat Gran (auto) 0.03 H Absolute Neuts (auto) 5.11 Absolute Nucleated RBC 0.00 Nucleated RBC % 0.0 Sodium 139 Potassium 3.1 L Chloride 105 Carbon Dioxide 32 H Anion Gap 2 L BUN 13 Creatinine 0.88 Estim Creat Clear Calc 65 Estimated GFR > 60 Glucose 90 POC Capillary Glucose 100 101 Calculated Osmolality 288 Calcium 8.8 Magnesium 1.5 L Total Bilirubin 1.5 H AST 40 H ALT 25 Alkaline Phosphatase 57 Ammonia 46 H Total Protein 6.8 Albumin 3.2 L 09/04/24 09/04/24 16:36 11:55 WBC RBC Hgb Hct MCV MCH MCHC RDW Plt Count MPV Immature Gran % (Auto) Neut % (Auto) Lymph % (Auto) [place] % (Auto) Eos % (Auto) Baso % (Auto) Lymph # (Auto) [place] # (Auto) Eos # (Auto) Baso # (Auto) Abs Immat Gran (auto) Absolute Neuts (auto) Absolute Nucleated RBC Nucleated RBC % Sodium Potassium Chloride Carbon Dioxide Anion Gap BUN Creatinine Estim Creat Clear Calc Estimated GFR Glucose POC Capillary Glucose 111 H 83 Calculated Osmolality Calcium Magnesium Total Bilirubin AST ALT Alkaline Phosphatase Ammonia Total Protein Albumin Preliminary micro results at discharge 09/03/24 07:40 Blood Culture - Preliminary Blood Gram positive cocci in pairs 09/03/24 06:47 Urine Culture - Preliminary Urine Clean Catch Gram negative bacilli isolated 09/03/24 07:40 Blood Culture - Preliminary Blood Imaging Radiologist's impression: Radiology Results: ITS Impressions Chest X-Ray 09/03/24 07:17 Impression: 1: Right basilar consolidation, consistent with pneumonia. Hip CT 09/03/24 08:26 IMPRESSION: No definite acute fracture demonstrated. Hyperdense masses with hypodensity is suggestive of ovarian masses. Further evaluation advised. Abdomen/Pelvis CT 09/03/24 08:28 Impression: Marked enlargement of bilateral ovaries, left greater than right, as detailed above. Diagnostic considerations include ovarian hyperthecosis or ovarian hyperstimulation due to underlying gonadotropin secreting tumor or other hormonal imbalance, versus possibly other bilateral ovarian neoplastic/metastatic lesions. Gynecologic and possibly endocrinologic follow up/consultation advised. 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 Cholelithiasis. Right lower lobe consolidation with bronchiectasis and air bronchograms. Appearance is suggestive of chronic consolidation such as atelectasis or scarring. Correlate for acute pneumonia. Head CT 09/03/24 08:28 Impression: No significant abnormality seen. Lumbar Spine CT 09/03/24 08:41 IMPRESSION: Loss of height seen in L2 and L3 most likely chronic. MRI evaluation advised. Multilevel degenerative disc disease with variable degrees of spinal canal stenosis and intervertebral foraminal narrowing. Ovarian masses. Further evaluation advised. Cholelithiasis. Tiny left kidney stone. Discharge Plan Discharge Attending physician on discharge: Minna Perez Consulting providers: Mona Rothman Discharging Clinician: Mona Rothman Anticipated Discharge Date/Time: 09/05/24 11:22 Patient Disposition: Hospital Swing Bed Activity: as tolerated Diet: diabetic Discharge Instructions: Discharge to Swing bed for Rehab Patient Instructions: Antibiotic Form Patient Language: Mongolian Stand Alone Forms: General Discharge Information Discharge Medications: New Zosyn in dextrose (iso-osm) 3.375 gram/50 mL Piggyback 3.375 g IV Q6H Qty: 1200 0RF bisacodyl [Laxative (bisacodyl)] 5 mg Tablet,Delayed Release (Dr/Ec) 5 mg PO DAILY PRN (Reason: Constipation) Qty: 30 0RF lactulose 10 gram/15 mL Solution 20 g PO DAILY Qty: 473 0RF azithromycin [Zithromax] 250 mg Tablet 500 mg PO DAILY Qty: 4 0RF nicotine [Nicoderm CQ] 21 mg/24 hr Patch 24 Hour 1 patch transdermal DAILY Qty: 28 0RF magnesium oxide 400 mg (241.3 mg magnesium) Tablet 400 mg PO DAILY Qty: 30 0RF Continued Trulicity 3 mg/0.5 mL pen injector 3 mg SUBCUT WEEKLY [place] 7.5 mg PO TID PRN (Reason: Pain) amitriptyline 10 mg PO QHS fluoxetine 20 mg PO DAILY furosemide 80 mg PO DAILY metformin 500 mg PO BID rosuvastatin 20 mg PO DAILY spironolactone 50 mg PO BID Date of admission: 09/03/24 09:49 Primary Care Provider: Rolly Best Admitting Provider: Minna Perez Attending physician on admission: Minna Perez Condition: Stable Quality VTE Prophylaxis VTE prophylaxis: pharmacologic ordered (Lovenox) -Patient's previous records reviewed on admission -ER notes reviewed in detail on admission -discussed all findings and current treatment plan with patient/Family/POA -Consultations reviewed for recommendations -Patient's disposition for safe discharge discussed with manager of case management Dictation performed by [employer] direct speech recognition software, therefore captain room service variants and typographical errors may occur. Hospitalist MIPS Heart Failure (Exclusion) Patient has history of Heart Transplant or Left Ventricular Assistive Device?: No IF YES, STOP HERE Heart Failure (Qualifier) Patient has current or prior documentation of LVEF less than or equal to 40%, or mod/servere depressed LVSF?: No IF NO, STOP HERE
--- NOTE | 2024-09-05 11:52 | PC.NURSE ---
Unable to chart against MAR. Patient required no Insulin at lunch per sliding scale, Blood sugar was 91.
== END 2024-09-05 11:22 | disposition swing bed (61) ==
LOC: CHSED 09:30 → CHS2ND 09:55
PROVIDERS: Emergency Medicine; Nurse Practitioner; Nurse Practitioner Family; Admitting Provider Internal Medicine; Emergency Provider Emergency Medicine; Visit Provider Internal Medicine
DX: A41.9 Sepsis, unspecified organism (principal); J96.01 Acute respiratory failure with hypoxia; J18.9 Pneumonia, unspecified organism; N39.0 Urinary tract infection, site not specified; N17.9 Acute kidney failure, unspecified; N83.8 Other noninflammatory disorders of ovary, fallopian tube and broad ligament; K74.60 Unspecified cirrhosis of liver; E87.8 Other disorders of electrolyte and fluid balance, not elsewhere classified; F17.210 Nicotine dependence, cigarettes, uncomplicated; E11.9 Type 2 diabetes mellitus without complications; M54.9 Dorsalgia, unspecified; G89.29 Other chronic pain; W06.XXXA Fall from bed, initial encounter; R29.6 Repeated falls; Z79.84 Long term (current) use of oral hypoglycemic drugs; Z79.85 Long-term (current) use of injectable non-insulin antidiabetic drugs; Z79.899 Other long term (current) drug therapy
CPT/HCPCS: 36415; 36600; 70450; 71045; 72131; 73700; 74176; 80053; 81001; 82140; 82805; 82948; 83036; 83605; 83735; 85025; 85610; 85730; 86140; 87040; 87077; 87086; 87088; 87181; 87186; 93005; 94640; 96365; 96366; 96367; 96372; 96375; 97110; 97161; 97165; 97530; 97535; 99285; A9270; G0378; J1650; J2270; J2543; J3475; J7030

== ENCOUNTER 2024-09-05 11:23 | Inpatient (IN) | payer MEDICARE, MEDICAID, SELFPAY ==
[2024-09-05 11:25] VITALS: BP 115/68; PULSE 93; RESP 18; TEMP 36.1; O2SAT 94
--- NOTE | 2024-09-05 11:25 | ADMGEN ---
This patient, Christina Ramirez, was admitted to 2nd Floor Room 203-2 as a skilled swing bed. Patient/family oriented to hospital policies and general routines including ID bracelet, bed and alarms, visiting hours, pain management, procedures, bathroom and other care routines, personal items, smoking policy, room service/diet, and visiting hours. Information on how to activate the Rapid Response Team has been discussed. Patient/Family are encouraged to report perceived risks to care and to ask questions if they do not understand what they are told or what they should do.
--- OUTSIDE RECORDS SUMMARY | 2024-09-05 11:55 | XMS_ITS | Clinical Summary ---
Author Organization [facility] Address [address] [place] [address] Care Team Providers Care Dish Carrier Name Role Phone Rolly Best MD Primary Care Provider [phone] Allergies No known active allergies Medications rosuvastatin [...] MCG/ 0.5 ML DOSE 09/11/2020,08/14/2020 [employer] COVID-19 ([employer] COORDINATOR BAILEY SARA), MRNA, LNP-S, PF, 50 MCG/ [...] this topic Medical Devices Implanted Type Area Community Health Representative Device Identifier Shelf Expiration Date Model / Serial / Lot Iol Tecnis Dib00 - [id number] Implanted:Qty: 1 on 11/27/2023 by Nam Martinez MD at [facility] Lens Left: Eye [employer] [id number] 03/12/2026 DIB00 / [id number] / NA Description:Dr. Martinez confirm ed IOL Iol Tecnis Dib00 - [id number] Implanted:Qty: 1 on 12/11/2023 by Nam Martinez MD at [facility] Lens Right: Eye [employer] [id number] 07/30/2026 DIB00 / [id number] / NA Description:Verified with ep meera and Dr Guido Insurance [facility] [place] [address] MEDICAID Care Teams Dish Carrier Relationship Specialty Start Date End Date Rolly Best MD PCP - General FAMILY PRACTICE 11/27/23
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
--- OUTSIDE RECORDS SUMMARY | 2024-09-05 11:55 | XMS_ITS | Data Portability ---
Author Organization [facility], [address] [facility] Neurology ([place]) Address [address]th [place] [address] Care Team Providers Care Physical Therapy Manager Name Role Phone LOR REYES Primary Care [...] Psych: Denies mood problems PAST MEDICAL HISTORY: 1. Diabetes 2. Hypertension 3. Hyperlipidemia 4. Squamous cell lung cancer 5. Ovarian mass 6. COPD FAMILY HISTORY: Denies family history of colon cancer SOCIAL HISTORY: No longer drinks alcohol. Denies any previous history of illegal/illicit drug use. PHYSICAL EXAM: General: Patient is well-developed and well-nourished. No acute distress. Neck: Neck is supple. No visible masses no lymphadenopathy. Heart: Heart is regular sinus rhythm. No murmurs heard. Lungs: Lungs are clear to auscultation bilaterally. Respirations unlabored. Abdomen: The abdomen is soft and nontender to palpation. Normal bowel sounds. Extremities: Normal range of motion of the upper and lower extremities. No edema in the lower extremities bilaterally. Skin: Warm and moist. Psychiatric: Patients mood and affect are appropriate. LABORATORY DATA: In March 2024 she had an [...] have an EGD again in 2 years. IMPRESSION: 1. Cirrhosis 2. Fatty liver. PLAN: 1. The patient was educated on the [...] have no further questions at this time. [email or web address] Not available 07/15/2024 15:41:26 Plan of Treatment Reminders Order Date Submit Date Provider Last Modified By Organization Details Last Modified Time Details Appointments Amanda cuevas Patient 30.EST 2024 02:30P M Tiffany Lopez Not available Not available Not available Imaging 5.PRO 2024 11:45A M Radiology Not available Not available Not available Amanda cuevas Patient 20.EST 2024 01:20P Sonja Hernández Not available Not available Not available Lab hemoglob in A1c + average glucose, QN, blood 2024 025 [place] [id number] 139 [facility] (Lab) [place] Location, [address] [place] [address], [id number], 07/30/2024 10:14:18 lipid panel, serum 2024 025 [place] [address] [address] [facility] ([facility]) [place] Location, [address] [place] [address], [address], 08/29/2024 11:23:56 CMP, serum or plasma 2024 025 [place] [address] 139 [facility] ([facility]) [place] Location, [address] [place] [address], [id number], 08/13/2024 10:29:40 CBC 2024 025 [place] [address] 139 [facility] ([facility]) [place] Location, [address] [place] [address], [address], 08/13/2024 10:29:52 urinalys is, complete 2024 025 [place] [address] 139 [facility] ([facility]) [place] Location, [address] [place] [address], [address], 09/05/2024 09:55:34 gamma-gl utamyl transfer ase (ggt), serum 2024 025 [place] [address] 139 [facility] ([facility]) [place] [facility], [address] [place] [address], [address], 09/05/2024 09:55:59 PT/INR 2024 025 [place] [address] 139 [facility] ([facility]) [place] Location, [address] [place] [address], [address], 08/13/2024 10:30:12 afp (alpha-f etoprote in) tumor marker, serum or plasma 2024 025 [email or web address] 139 [facility] (Lab) [place] Location, [address] [place], [address], 08/13/2024 10:30:24 Referral None recorded . Procedures None recorded . Surgeries None recorded . Imaging None recorded . Medication Orders Trulicit y 4.5 mg/0.5 mL subcutan eous pen injector 2024 025 [facility]/Pharmacy #[id number], [address] [place], [address], 07/17/2024 16:04:48 Patient TargetsNo targets recorded. Patient Instructions Encounter Date Encounter Id Patient Instructions Last Modified By Organization Details Last Modified Time 07/17/2024 [id number] Recommend no alcohol no tobacco. Recommend chair [...] GYNEC OLOGI C CYTOL OGY REPOR T tabber/aC [facility] Order ing Provi valdez: John Tello nt Name: JYOTHI CARLOS, CRYST IE C Acces jose #: [id number] /A ge/Ge nder: 02[birth year]21 (Age: 69) / [...] epith elial lesio n or malig jessica DINING ROOM HOST STS EL ECTRO NICAL LY VERIF IED BY JUAN ON T JUAN ON, SCT(A SCP)C M 03/27 14:53 HPV Testi ng Date Order ed: 03/15 Date Repor shana: 03/18 13:14 Inter preta tion NEGAT DOROTA for high risk types of HPV Test Infor matio n Human Papil lomav irus (HPV) testi ng perfo rmed using the [facility] [employer] josé maneul 4800 HPV Test ([facility] [employer] [employer] ms, [place] , [place] ). The josé manuel HPV Test [...] ogy Labor atory ([facility] [place]). 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 END OF T Not Available [facility] Only - [facility] [address] [place] [address], [address], 03/27/2024 15:54:15 07/16/19 25 07/15/2024 CBC CBC Not Available [facility] - [facility] [address] [place] [address], [address], 07/15/2024 18:08:03 07/16/19 25 07/15/2024 CBC WBC 6.6 K/uL 3.8-11 .2 Not Available [facility] [address] [place] [address], [id number], 07/15/2024 18:08:03 07/16/19 25 07/15/2024 CBC RBC 4.19 M/uL 3.92-5 .10 Not Available [facility] [address] [place] [address], [id number], 07/15/2024 18:08:03 07/16/19 25 07/15/2024 CBC HGB 13.7 g/dL 11.8-1 5.3 Not Available [facility] [address] [place] [address], [address], 07/15/2024 18:08:03 07/16/19 25 07/15/2024 CBC HCT 39.5 % 36.5-4 4.8 Not Available [facility] [address] [place] [address], [id number], 07/15/2024 18:08:03 07/16/19 25 07/15/2024 CBC MCV 94.3 fL 80.0-9 9.0 Not Available [facility] [address] [place] [address], 424[address], 07/15/2024 18:08:03 07/16/19 25 07/15/2024 CBC MCH 32.7 pg 25.5-3 3.6 Not Available [facility] - [facility] [address] [place] [address], [id number], 07/15/2024 18:08:03 07/16/19 25 07/15/2024 CBC MCHC 34.7 g/dL 32.0-3 6.0 Not Available [facility] [address] [place] [address], [address], 07/15/2024 18:08:03 07/16/19 07/15/2024 CBC RDW-SD 47.3 fL 35.1 - 46.3 high Not Available [facility] - [facility] [address] [place] [address], [address], 07/15/2024 18:08:03 07/16/19 25 07/15/2024 CBC plt 246 K/uL 130-40 0 Not Available [facility] - [facility] [address] [place] [address], 437[address], 07/15/2024 18:08:03 07/16/19 25 07/15/2024 CBC MPV 9.1 fL 9.3-12 .8 low Not Available [facility] - [facility] [address] [place] [address], [id number], 07/15/2024 18:08:03 07/16/19 25 07/15/2024 PT/IN R protime panel 2 Not Available [facility] - [facility] [address] [place] [address], [id number], 07/15/2024 18:24:10 07/16/19 25 07/15/2024 PT/IN R prothrombin 12.3 secon ds 9.4-13 .1 Not Available [facility] - [facility] [address] [place] [address], [address], 07/15/2024 18:24:10 07/16/19 25 07/15/2024 PT/IN R INR 1.1 INR INTER PRETA TION 2.0-3 .0 FOR DEEP VEIN THROM BOSIS PULMO NARY EMBOL ISM ACUTE MYOCA RDIAL INFAR CTION ATRIA L FIBRI LLATI ON 3.0-4 .5 FOR MECHA NICAL HEART VALVE S Not Available [facility] - [facility] [address] [place] [address], 228[address], 07/15/2024 18:24:10 07/16/19 25 07/15/2024 CMP, serum or plasm a comp. met. panel Not Available [facility] - [facility] [address] [place] [address], [id number], 07/15/2024 19:11:04 07/16/19 25 07/15/2024 CMP, serum or plasm a sodium 144 mmol/ L 136-14 6 Not Available [facility] - [facility] [address] [place] [address], 929[address], 07/15/2024 19:11:04 07/16/19 25 07/15/2024 CMP, serum or plasm a potassium 3.8 mmol/ L 3.5-5. 1 Not Available [facility] [address] [place] [address], 699[address], 07/15/2024 19:11:04 07/16/19 25 07/15/2024 CMP, serum or plasm a chloride 109 mmol/ L 98-110 Not Available [facility] - [facility] [address] [place] [address], 43382, 07/15/2024 19:11:04 07/16/19 25 07/15/2024 CMP, serum or plasm a CO2 28 mEq/L 20-32 Not Available [facility] - [facility] [address] [place] [address], 993[address], 07/15/2024 19:11:04 07/16/19 25 07/15/2024 CMP, serum or plasm a anion gap 11 mmol/ L 10-22 Not Available [facility] [address] [place] [address], 23092, 07/15/2024 19:11:04 07/16/19 25 07/15/2024 CMP, serum or plasm a glucose 61 mg/dL 70-100 low Not Available [facility] - [facility] [address] [place] [address], 795[address], 07/15/2024 19:11:04 07/16/19 25 07/15/2024 CMP, serum or plasm a calcium 10.0 mg/dL 8.4-10 .4 Not Available [facility] - [facility] [address] [place] [address], 03991, 07/15/2024 19:11:04 07/16/19 25 07/15/2024 CMP, serum or plasm a total protein 7.0 g/dL 6.4-8. 3 Not Available [facility] [address] [place] [address], 10316, 07/15/2024 19:11:04 07/16/19 25 07/15/2024 CMP, serum or plasm a albumin 3.7 g/dL 3.5-5. 3 Not Available [facility] - [facility] [address] [place] [address], 036[address], 07/15/2024 19:11:04 07/16/19 25 07/15/2024 CMP, serum or plasm a ALP 74 U/L 44 - 127 Not Available [facility] [address] [place] [address], 38916, 07/15/2024 19:11:04 07/16/19 25 07/15/2024 CMP, serum or plasm a AST (SGOT) 22 U/L 10-40 Not Available [facility] [address] [place] [address], [address], 07/15/2024 19:11:04 07/16/19 25 07/15/2024 CMP, serum or plasm a total bilirubin 0.8 mg/dL 0.2-1. 2 Not Available [facility] [address] [place] [address], 68846, 07/15/2024 19:11:04 07/16/19 25 07/15/2024 CMP, serum or plasm a ALT (SGPT) 13 U/L 8-35 Not Available [facility] [address] [place] [address], 76549, 07/15/2024 19:11:04 07/16/19 25 07/15/2024 CMP, serum or plasm a BUN 10 mg/dL 7-21 Not Available [facility] [address] [place] [address], 60939, 07/15/2024 19:11:04 07/16/19 25 07/15/2024 CMP, serum or plasm a creatinine 0.8 mg/dL 0.7-1. 3 Not Available [facility] [address] [place] [address], [address], 07/15/2024 19:11:04 07/16/19 25 07/15/2024 CMP, serum or plasm a CKD-epi GFR 81 eGFR was calcu lated using the 2020 CKD-E PI equat ion. (Engineering Tech kassy Kidne y Disea se has an eGFR less than 60 mL/mi n/1.7 3mm for a perio d of three month s or more. ) This calcu latio n has not been valid ated for patie nt ages <18 or >90 years old. Not Available [facility] - [facility] [address], [address], 07/15/2024 19:11:04 07/16/19 25 07/16/2024 afp (alph [...] t be inter prete d as absol jordan evide nce of the prese nce or absen ce of christen lopeza se. . This test is not inter preta ble in pregn ant femal es. Not Available [facility] - [facility] [address], [address], 07/16/2024 07:40:33 08/07/19 25 08/06/2024 gluco se, finge rstic k, blood Blood Glucose: mg/dl 72 Not Available [facility] [address] [place] [address], [address], 08/06/2024 16:50:14 08/07/19 25 08/06/2024 gluco se, tyrel guerra k, blood Blood Glucose: mg/dl 65 Not Available [facility]) [address] [place], [address], 08/06/2024 16:12:07 03/14/20 24 03/14/2024 US, abdom en, limit ed [facility] [address] [place] [address] Teleph [phone] Name: Michael hernandez, Crysti e 1498 Exam Date: 2023 Age: 69 Physic roro: [...] is no perihe patic ascite s. IMPRES JOSE: 1. Hepati c cirrho sis. 2. No [...] 1:32 PM cc: Page PAGE 1 of NUMPAG ES 1 [id number] [facility] Only - [facility] [address] [place] [address], [address], 03/22/2024 15:47:17 Result Notes None recorded. Problems Name Problem SNOMED Code Status Onset Date Resolution Date Notes Provider Name and Address Organization Details Recorded Time Low back pain 637394866 Active 2023 Юлия [facility] 4 17:58:44 Vulval intraepith elial neoplasia grade 3 674134696 Active 2023 Lor Reyes MD [address] [place] [address], [address] , [facility] 5 22:22:47 Mass of uterine adnexa 655019023 Active 2023 JOHN MENDOZA NP [address] [place] [address], [address] , [facility] 4 16:01:56 Acute urinary tract infection 997158622 Active 2023 Lor Reyes MD [address] [place] [address], [address] , [facility] 4 22:32:53 Lymphadeno berkley 76937983 Active 2024 Lor Reyes MD [address] [place] [address], [address] , [facility] 5 16:24:05 Asthenia 85778017 Active 2024 Lor Reyes MD [address] [place] [address], [address] , [facility] 5 16:38:03 Chronic obstructiv e pulmonary disease 71834493 Active Not Available [facility] 5 16:38:19 Portal hypertensi on 13511067 Active Not Available [facility] 5 16:38:29 Cirrhosis of liver 79967793 Active 2023 Myra Andrade PA-C [address] [place] [address], [address] , [facility] 5 15:40:23 Dyslipidem ia 157461563 Active 2023 Vida Scooter null, [facility] 4 09:29:14 Psoriasis 7934305 [facility]23 [facility] 4 09:29:23 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 1784770556019 9107 Active 2023 Vida Scooter [facility] 4 09:29:32 Depressive disorder 59439687 Active 2023 [facility] 4 09:29:42 Pulmonary emphysema 30623419 Active 2023 Lor Reyes MD [address] [place] [address], [address] , [facility] 5 22:22:28 Hypertensi ve disorder 98794037 Active 2023 Vida Scooter [facility] 4 09:30:38 Metabolic dysfunctio n-associat ed steatotic liver disease Active 2023 [facility] 4 09:31:22 Chronic pain 96872812 Active 2023 Aimee Goff in [facility] 4 11:11:16 Edema of lower extremity 004617287 Active 2023 Aimee Goff in [facility] 4 11:17:49 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 Not Available [facility] 4 15:32:08 Heart failure 68843119 Active Not Available [facility] 4 15:32:26 Type 2 diabetes mellitus 80159795 Active [facility] 5 13:27:55 Morbid obesity 236970353 Active Not Available [facility] 4 15:32:35 Malignant neoplasm of lung 550383556 Active Not Available [facility] 4 15:32:51 Recurrent urinary tract infection 024981352 Active 2023 Lor Reyes MD [address] [place] [address], [address] , [facility] 4 15:37:51 Sprain of left wrist 3516860750225 9104 Active 2023 Lor Reyes MD [address] [place] [address], [address] , [facility] 4 15:41:20 Bilateral arthritis of knees 9191609734849 108 Active 2023 Lor Reyes MD [address] [place] [address], [address] , [facility] 5 22:23:11 Urinary tract infectious disease 53541340 Active 2023 [facility] 4 15:43:41 Squamous cell carcinoma of lung 385630713 Active 2023 Lor Reyes MD [address] [place] [address], [address] , [facility] 5 22:22:58 Notes:Some problems listed i n Documents: #[id number], #[id number], #[id number], #[id number], #[id number], #[id number], #[id number] could not be added to this patient's chart. Please review these documents and add these problems to the patient's chart manually as needed. Problem Notes Documentation Provider Name and Address Organization Details Recorded Time Rn Acute Care Consult Note : [facility] [address] [place] [address] Christina Ramirez 69yo F 1955 #[id number] 07/15/2024 DeaRalph Reyes MD, Christina Ramirez was seen in our office today 07/15/2024, and a copy of that evaluation is enclosed. Thank you for allowing us to participate in the care of your patient. Please contact us with any questions. Sincerely, Electronically Signed by: MYRA ANDRADE PA-C Encounter Reason/Date Reason for visit: pt is here for f/u- cirrhosis Referring provider:Naga Fraser Previous history of MRSA :no Previous history VRE :no Previous history of Cdiff :no Blood Thinners? no Diabetic? metformin, trulicity Latex Allergy? no 07/15/2024 - 02:00PM - [facility] [place] [facility] ([place])ProblemsReviewed Problems Malignant tumor of lung Squamous cell [...] Onset: 11/16/2023 Some problems listed in Documents: #[id number], #[id number], #[id number], #[id number], #[id number], #[id number] could not be added to this patient's chart. 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 Please review these documents and add these allergies to the patient's chart manually as needed. Medications Reviewed Medications NameDate Source amitriptyline 10 mg tabletPLEASE SEE ATTACHED FOR DETAILED [id number]/09/25 filled surescripts buPROPion HCL XL 150 mg 24 hr tablet, extended release1 daily first week then 2 daily Internal Note:last rx 05/17/2406 prescribed Lor Reyes MD FLUoxetine 20 mg capsuleTAKE 1 CAPSULE BY MOUTH EVERY DAY06/19/24 filled surescripts furosemide 80 mg tabletTAKE 1 TABLET BY MOUTH EVERY DAY CBVVJKRW83/01/25 filled surescripts HYDROcodone 7.5 mg-acetaminophen 325 mg tabletTake 1 tablet(s) 3 times a day by oral route, for low back pain.07/08/24 prescribed Lor Reyes MD ipratropium 0.5 mg-albuteroL 3 mg (2.5 mg base)/3 mL nebulization solnUse 1 unit dose in nebulizer every 4 hours as needed Internal Note:last rx 05.17.2405/17/24 prescribed Lor Reyes MD metFORMIN ER 500 mg tablet,extended release [...] subcutaneous pen injectorINJECT 1 PEN (3MG) ONCE FDZUIE43/10/24 filled surescripts Xifaxan 550 mg tabletTAKE 1 [...] Code: 305.1 Last Reviewed Date: 20230118 SnomedCode: 973283873 ICD10 Code: F17.200 LastAssessedBy: SOUTH LYLES (Pulmonary Medicine) Former consumption of alcohol, Type: Chronic Last Edited: 13 May 2016 3:41PM ICD9 Code: V11.3 Last Reviewed Date: 20160513 SnomedCode: 449595108 ICD10 Code: Z87.898 Smoking greater than 40 pack years, Last Assessed: 25 Nov 2022 12:08PM Type: Chronic Identified By: LOR REYES Last Edited: 25 Nov 2022 12:08PM ICD9 Code: 305.1 Last Reviewed Date: 20221125 SnomedCode: 13308570 ICD10 Code: F17.210 LastAssessedBy: LOR REYES (Family [...] lesions. NEURO: Denies seizures, syncope, tremors, vertigo. [id number]|2024-09-13 08:57:01|2024-09-13 08:57:01|PM.DS||||"DS: Admitting Diagnosis Discharge Date 09/13/2024 Admitting Diagnosis Sepsis/Pneumonia/UTI/Acute Respiratory failure with hypoxia transitioned to Swing bed for Rehab DS: Discharge Diagnosis Discharge Diagnosis (1) Sepsis: Code(s): A41.9 - Sepsis, unspecified organism Status: Acute (2) Acute hypoxic respiratory failure: Code(s): J96.01 - Acute respiratory failure with hypoxia Status: Acute (3) UTI (urinary tract infection): Code(s): N39.0 - Urinary tract infection, site not specified Status: Acute (4) Pneumonia: Qualifiers: Laterality: right Lung location: lower lobe of lung Pneumonia type: due to unspecified organism Qualified Code(s): J18.9 - Pneumonia, unspecified organism Code(s): J18.9 - Pneumonia, unspecified organism Status: Acute (5) Fall: Qualifiers: Encounter type: initial encounter Qualified Code(s): W19.XXXA - Unspecified fall, initial encounter Code(s): W19.XXXA - Unspecified fall, initial encounter Status: Acute (6) Enlarged ovary: Code(s): N83.8 - Other noninflammatory disorders of ovary, fallopian tube and broad ligament Status: Acute (7) Type 2 diabetes mellitus: Code(s): E11.9 - Type 2 diabetes mellitus without complications Status: Acute (8) Tobacco abuse: Code(s): Z72.0 - Tobacco use Status: Acute (9) Cirrhosis: Code(s): K74.60 - Unspecified cirrhosis of liver Status: Acute (10) BISMARK (acute kidney injury): Code(s): N17.9 - Acute kidney failure, unspecified Status: Acute DS: Summary Hospital Course Reason for hospitalization: Sepsis/Pneumonia/UTI/Acute Respiratory failure with hypoxia Hospital Course: Admission This is a 69 year old female patient who lives at home with family who is admitted after she had a few falls from bed complaining of chronic back pain and pain to back of head. Imaging in ER suggests right lower lobe consolidation concerning for pneumonia. 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 Urinalysis collected after IV Zosyn still shows findings consistent with UTI including positive nitrites. Prior urine culture showed E.coli that was resistant to fluoroquinolones. We will continue IV Zosyn on admission for pneumonia and UTI. We will also add azithromycin. Patient requiring 2 L/min oxygen when normally she is on room air at home. ER labs also showed mild hypokalemia. Patient is on oral Lasix and spironolactone. She received 1 L of IV fluids in the ER. Labs also show very mild BISMARK compared to previous results. Will recheck labs in the morning including magnesium and renal function panel. Oral dose of potassium given on admission. Will add magnesium to blood already in lab. Patient was incontinent of urine in the emergency department. She stated that normally she knows when she has to urinate and she is ambulatory and mobile at home. She states though she is having profound weakness right now leading to frequent falls. Hospital Course: Sepsis was evidence by Elevated WBC, HR faster than 90, RR 20 with hypoxia, elevated lactic acid, secondary to PNA and UTI. CXR Right lower lobe consolidation noted on imaging, I Continued Zosyn, add azithromycin for pneumonia and UTI No IV fluids hemodynamically stable patient with history of cirrhosis Blood cultures did show Gram-positive cocci in pairs still discharge to swing however she will remain on IV Zosyn pending final culture and sensitivities as well as follow-up cultures to determine if we can deescalate to an oral antibiotic. patient has pneumonia could be possible Streptococcus causing bacteremia CXR was showing right lower lobe consolidation she was continued on nebulizer treatments, IV Zosyn, incentive spirometer full respiratory panel Legionella pneumococcal was pending at time of discharge will continue to monitor. She did have Acute hypoxia present on admission and was placed on supplemental oxygen which resolved quickly and remained on room air during her hospitalization UA captured after starting IV Zosyn with signs of UTI, Prior UTI was E. coli, resistant to fluoroquinolones, patient was placed on IV Zosyn and UA growing a Gram-negative bacilli continue on IV Zosyn pending final cultures due to bacteremia this will also cover for her UTI. PT/ OT was ordered and was recommended patient discharged to swing bed for continued rehabilitation needs and generalized weakness likely secondary to infectious process. on CT patient was also noted to have bilateral ovarian hypertrophy and a left ovarian mass patient is aware of mass and has been following outpatient with community relations specialist. patient with history of cirrhosis ammonia level was elevated 60 patient reported she had not been taking her home medications I did add lactulose twice a day for elevated ammonia levels which improved and ordered daily lactulose 20 mg at discharge. patient seen and assessed on day of discharge to swing bed she is up in chair reporting feeling better but did have moderate cough with mild secretions remained on room air and still reporting generalized weakness. patient was discharged to swing bed will remain on IV antibiotic therapy pending final cultures plan for rehabilitation to return home with daughter. Status at Discharge Functional status at discharge: uses cane/walker Overall status at discharge: patient is progressing back to baseline Time Spent with Patient Time attestation: Total time spent providing and/or coordinating discharge services: Time spent: Greater than 30 minutes Exam Narrative: General appearance: Chronically ill appearing, no acute distress Skin: Normal color Chest and respiratory: Diminished at bases otherwise clear to auscultation Heart:RRR Abdomen: Soft, nontender, no organomegaly Musculoskeletal: Limited range of motion to all over mainly left hip and lower back, with diffuse tenderness. Patient have trouble moving Neurologic: Alert and oriented ×3 Psych: Flat effect DS: Data Data Completed and Pending Labs on day of discharge: Labs from last 24 hours 09/13/24 09/13/24 09/13/24 07:42 06:55 03:29 WBC 7.1 RBC 4.14 L Hgb 13.2 Hct 41.2 MCV 99.5 MCH 31.9 H MCHC 32.0 RDW 13.3 Plt Count 237 MPV 9.1 L Sodium 136 L Potassium 4.0 Chloride 106 Carbon Dioxide 28 Anion Gap 2 L BUN 11 Creatinine 0.82 Estim Creat Clear Calc 69 Estimated GFR > 60 Glucose 86 POC Capillary Glucose 97 105 Calculated Osmolality 280 L Calcium 9.1 Total Bilirubin 0.8 AST 36 ALT 18 Alkaline Phosphatase 57 Total Protein 6.8 Albumin 3.3 L 09/12/24 09/12/24 09/12/24 21:20 16:18 11:56 WBC RBC Hgb Hct MCV MCH MCHC RDW Plt Count MPV Sodium Potassium Chloride Carbon Dioxide Anion Gap BUN Creatinine Estim Creat Clear Calc Estimated GFR Glucose POC Capillary Glucose 113 H 123 H 156 H Calculated Osmolality Calcium Total Bilirubin AST ALT Alkaline Phosphatase Total Protein Albumin Imaging Radiologist's impression: Radiology Results: ITS Impressions Chest X-Ray 09/03/24 07:17 Impression: 1: Right basilar consolidation, consistent with pneumonia. Hip CT 09/03/24 08:26 IMPRESSION: No definite acute fracture demonstrated. Hyperdense masses with hypodensity is suggestive of ovarian masses. Further evaluation advised. Abdomen/Pelvis CT 09/03/24 08:28 Impression: Marked enlargement of bilateral ovaries, left greater than right, as detailed above. Diagnostic considerations include ovarian hyperthecosis or ovarian hyperstimulation due to underlying gonadotropin secreting tumor or other hormonal imbalance, versus possibly other bilateral ovarian neoplastic/metastatic lesions. Gynecologic and possibly endocrinologic follow up/consultation advised. 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 Cholelithiasis. Right lower lobe consolidation with bronchiectasis and air bronchograms. Appearance is suggestive of chronic consolidation such as atelectasis or scarring. Correlate for acute pneumonia. Head CT 09/03/24 08:28 Impression: No significant abnormality seen. Lumbar Spine CT 09/03/24 08:41 IMPRESSION: Loss of height seen in L2 and L3 most likely chronic. MRI evaluation advised. Multilevel degenerative disc disease with variable degrees of spinal canal stenosis and intervertebral foraminal narrowing. Ovarian masses. Further evaluation advised. Cholelithiasis. Tiny left kidney stone. Discharge Plan Discharge Attending physician on discharge: Minna Perez Consulting providers: Mona Rothman; Marie Her Discharging Clinician: Mona Rothman Anticipated Discharge Date/Time: 05/16/25 08:49 Patient Disposition: Home with Home Health Service Activity: may shower and as tolerated Diet: heart healthy Discharge Instructions: Per Care Coordination: [facility] will follow you at discharge. They will plan to see you on Monday, September 16 and will call you to schedule a time. UTI/Bacteremia (Blood infection) I have prescribed oral antibiotics please take and complete as indicated practice good hygiene to reduce reoccurrences of UTI I encourage hydration cirrhosis I have prescribed Lactulose daily 20gm please continue as prescribed to keep your ammonia levels down How can you care for yourself at home? • Keep track of any new symptoms or changes in your symptoms. • Rest until you feel better. • Be safe with medicines. Take your medicines exactly as prescribed. Call your doctor if you think you are having a problem with your medicine. • Do not drive after taking a prescription pain medicine. • Ensure to follow-up with primary care physician as indicated and provide updated medication list provided to you at discharge. When should you call for help? Call 911 anytime you think you may need emergency care. For example, call if: • You passed out (lost consciousness). Call your doctor now or seek immediate medical care if: • You have new symptoms like fever, difficulty breathing, Chest pain, vomiting, or rash. • You have new or different pain. • You are confused and are having trouble thinking clearly. • Your symptoms are getting worse. Watch closely for changes in your health, and be sure to contact your doctor if: • You do not get better as expected. Patient Instructions: Antibiotic Form, Hydrocodone/Acetaminophen (By mouth), Amoxicillin/Clavulanate Potassium (By mouth), Lactulose (By mouth), Cirrhosis of the Liver (DC), Urinary Tract Infection in Women (DC), Fall Prevention for Older Adults (DC), Bacteremia (DC), Type 2 Diabetes in the Older Adult (DC) Patient Language: Armenian Stand Alone Forms: General Discharge Information Follow-up/Referrals: LOR REYES [Other] - 2 weeks Discharge Medications: New magnesium oxide 400 mg (241.3 mg magnesium) Tablet 400 mg PO DAILY Qty: 30 0RF lactulose 10 gram/15 mL Solution 20 g PO QAM Qty: 3000 0RF amoxicillin-pot clavulanate 875-125 mg tablet 1 tablet PO Q12H Qty: 5 0RF Continued Trulicity 3 mg/0.5 mL pen injector 3 mg SUBCUT WEEKLY Black 7.5 mg PO TID PRN (Reason: Pain) amitriptyline 10 mg PO QHS fluoxetine 20 mg PO DAILY furosemide 80 mg PO DAILY metformin 500 mg PO BID rosuvastatin 20 mg PO DAILY spironolactone 50 mg PO BID Date of admission: 09/05/24 11:23 Primary Care Provider: LOR REYES Admitting Provider: Minna Perez Attending physician on admission: Minna Perez Condition: Improved Quality VTE Prophylaxis VTE prophylaxis: pharmacologic ordered (Lovenox) -Patient's previous records reviewed on admission -ER notes reviewed in detail on admission -discussed all findings and current treatment plan with patient/Family/POA -Consultations reviewed for recommendations -Patient's disposition for safe discharge discussed with special education case manager Dictation performed by [employer] direct speech recognition software, therefore ceiling installer variants and typographical errors may occur. Hospitalist MIPS Heart Failure (Exclusion) Patient has history of Heart Transplant or Left Ventricular Assistive Device?: No IF YES, STOP HERE Heart Failure (Qualifier) Patient has current or prior documentation of LVEF less than or equal to 40%, or mod/servere depressed LVSF?: No IF NO, STOP HERE "
--- NOTE | 2024-09-05 14:27 | PC.NURSE ---
Called left message for CONSUMER SALES REPRESENTATIVE to return call to facility r/t orders being put in from patient transfering to SWING status. Await return call.
[2024-09-05 14:50] VITALS: O2SAT 94
[2024-09-05 15:21] VITALS: BMI 46.5
[2024-09-05] MEDS: PIPERACILLN/TAZ 3.375GM/NS50ML 3.375 GM/50 ML BAG IVPB ×2 (15:54→20:49)
[2024-09-05 16:00] VITALS: BP 113/68; PULSE 68; RESP 16; TEMP 36.4; O2SAT 96
[2024-09-05] MEDS: SPIRONOLACTONE 25 MG TABLET 50 MG PO (16:02)
[2024-09-05 16:03] LABS: Glucose Point of Care 132 mg/dl (65-105)
[2024-09-05 20:37] VITALS: BP 129/63; PULSE 74; RESP 20; TEMP 36.6; O2SAT 94
[2024-09-05] MEDS: guaiFENesin 12 HR 600 MG TABCR 1200 MG PO (20:55)
[2024-09-05] MEDS: AMITRIPTYLINE HCL 10 MG TABLET BY MOUTH (20:55)
[2024-09-05 21:10] LABS: Glucose Point of Care 80 mg/dl (65-105)
[2024-09-06] VITALS: BP 113/55; PULSE 89; RESP 18; TEMP 36.6; O2SAT 95
[2024-09-06] MEDS: PIPERACILLN/TAZ 3.375GM/NS50ML 3.375 GM/50 ML BAG IVPB ×4 (03:55→20:39)
[2024-09-06 07:31] LABS: Glucose Point of Care 89 mg/dl (65-105)
[2024-09-06 07:32] VITALS: BP 131/61; PULSE 88; RESP 18; TEMP 36; O2SAT 94
[2024-09-06] MEDS: SPIRONOLACTONE 25 MG TABLET 50 MG PO ×2 (08:37→17:33)
[2024-09-06] MEDS: FLUoxetine HCL 20 MG CAPSULE PO (08:37)
[2024-09-06] MEDS: FUROSEMIDE 40 MG TABLET 80 MG PO (08:37)
[2024-09-06] MEDS: MAGNESIUM OXIDE 400 MG TABLET PO (08:37)
[2024-09-06] MEDS: LACTULOSE 20 GM/30 ML UDC PO (08:37)
[2024-09-06] MEDS: ROSUVASTATIN 10 MG TABLET 20 MG PO (08:37)
[2024-09-06] MEDS: HYDROcodone/acetaminophen (*CRX) 7.5-325 MG TABLET 1 TAB PO (08:37)
[2024-09-06] MEDS: guaiFENesin 12 HR 600 MG TABCR 1200 MG PO ×2 (08:37→20:39)
[2024-09-06] MEDS: NICOTINE (*PBKC) 21 MG PATCH 1 PATCH TRANSDERM (08:37)
[2024-09-06] MEDS: AZITHROMYCIN 250 MG TABLET 500 MG PO (08:38)
--- NOTE | 2024-09-06 09:38 | P.HP_ITS ---
H&P: HPI History of Present Illness Date/Time: 09/06/24 09:38 Chief Complaint: Weakness, falls, hypoxia, pneumonia Narrative: Patient is a 69-year-old female who was admitted to [facility] bed for physical and occupational therapy after hospitalization due to sepsis without septic shock, acute respiratory failure with hypoxia secondary to pneumonia, UTI and bacteremia. patient does have a past medical history of diabetes, cirrhosis of liver, anxiety, HLD, and ovary mass. patient will continue with IV Zosyn at this time pending final culture and sensitivity rates from her blood cultures 2nd set has been ordered and is pending no growth on 2nd order. Patient's UTI did grow E coli sensitive to the IV Zosyn. Patient denied any chest pain, shortness a breath, nausea, vomiting was tolerating oral intake did report a mild productive cough. patient to continue with IV antibiotics and strength training plan to return back home with daughter. Review of Systems Review of Systems: All systems reviewed & are unremarkable except as noted in HPI and below PMFSH Past Medical History Medical History Tobacco abuse Cirrhosis Enlarged ovary Fall UTI (urinary tract infection) Type 2 diabetes mellitus Social History Social History Smoking packs per day: 1 Smoking cigarettes per day: 20.0 Years smoked: 50 Smoking pack-years: 50.00 Smoking status: Current every day smoker Tobacco type: cigarettes Second hand tobacco smoke exposure: Yes Alcohol intake: never Substance use: never Substance use type: does not use Do You Feel Safe in your Home?: Yes Lack of Transportation: No Lack of Food: Never True Current Housing: I Have Housing Concerned About Future Housing: No Difficulty Paying Gas/Electric Bills: No Difficulty Paying for Meds: No Currently Unemployed: No Education: High School Diploma/GED Difficulty w/ Childcare or Family Care: No Spiritual care concerns: Yes Meds Home Medications and Allergies Home Medications Medication Instructions Recorded Confirmed Type Dalton 7.5 mg PO TID PRN Pain 11/17/23 09/05/24 History amitriptyline 10 mg PO QHS 11/17/23 09/05/24 History fluoxetine 20 mg PO DAILY 11/17/23 09/05/24 History furosemide 80 mg PO DAILY 11/17/23 09/05/24 History metformin 500 mg PO BID 11/17/23 09/05/24 History rosuvastatin 20 mg PO DAILY 11/17/23 09/05/24 History spironolactone 50 mg PO BID 11/17/23 09/05/24 History dulaglutide 3 mg/0.5 mL 3 mg subcut WEEKLY 09/03/24 09/05/24 History subcutaneous pen injector (Trulicity) Allergies Allergy/AdvReac Type Severity Reaction Status Date / Time No Known Allergies Allergy Verified 09/03/24 06:49 Vital Signs Vital Signs - 24 hr 09/05/24 11:25 09/05/24 14:50 09/05/24 16:00 Temperature 96.9 F L 97.6 F Pulse Rate 93 68 Respiratory Rate 18 16 Blood Pressure 115/68 113/68 Pulse Oximetry 94 94 96 Oxygen Delivery Room Air Room Air Room Air 09/05/24 20:37 09/06/24 00:00 09/06/24 07:32 Temperature 97.8 F 97.8 F 96.8 F L Pulse Rate 74 89 88 Respiratory Rate 20 18 18 Blood Pressure 129/63 113/55 L 131/61 Pulse Oximetry 94 95 94 Oxygen Delivery Room Air Room Air Room Air Exam Narrative: General appearance: Chronically ill appearing, no acute distress Skin: Normal color HEENT: PERRL, no lymphadenopathy noted Chest and respiratory: Diminished lung sound to auscultation on room air Heart: Regular rate/rhythm Abdomen: Soft, nontender, no organomegaly, quiet bowel sounds Vascular: Normal peripheral pulses, normal capillary refill. Musculoskeletal: Limited range of motion to all over mainly left hip and lower back, with diffuse tenderness. Patient have trouble moving Neurologic: Alert and oriented ×3, ROBOTYPE OPERATOR is normal as tested, no gross motor deficit H&P: Results Labs Labs: Short CBC 09/03/24 Range/Units 07:12 WBC 23.1 H* (4.8-10.8) K/mm3 Hgb 13.2 (11.7-13.8) g/dL Hct 39.1 (35.0-42.0) % Plt Count 220 (150-420) K/mm3 [facility] 09/03/24 07:12 Sodium 136 Potassium 3.3 L Chloride 99 Carbon Dioxide 28 BUN 13 Creatinine 1.22 H Glucose 152 H Calcium 9.3 Liver Function 09/03/24 Range/Units 07:12 Total Bilirubin 2.1 H (0.00-1.00) mg/dL AST 48 H (15-37) U/L ALT 26 (14-59) U/L Alkaline Phosphatase 47 (46-116) U/L Albumin 3.0 L (3.4-5.0) g/dL Pulse Oximetry SpO2 results: 90% room air, 98% on 2LPM NC Attestation: I personally reviewed and interpreted this pulse oximetry as follows: Interpretation: Patient requires supplemental oxygen on admission but hope to wean promptly ECG Attestation: I personally reviewed and interpreted this ECG as follows: ECG completion date: 09/03/24 ECG completion time: 07:02 Prior ECG tracings: available for review Interpretation: Sinus rhythm rate of 98 SD interval 177 QRS duration 94 QTC 452 QRS axis 79 no STEMI Imaging Chest x-ray: Radiologist's impression: XR chest 1V portable 09/03/2024 07:02 Indication: Shortness of breath. History of COPD. Procedure: AP portable chest Comparison: No prior studies for comparison. Findings: Right basilar airspace consolidation, consistent with pneumonia. Cardiomegaly. No significant effusion. No pneumothorax. Severe degenerative changes of the shoulders. Impression: 1: Right basilar consolidation, consistent with pneumonia. Reviewed, dictated and finalized at location A. CT hip left: Radiologist's impression: Procedure: CT hip LT wo con Ordering provider: Laurel Reid MD History: . fall/ALWAYS HAS HIP PAIN . Comparison: None. Technique: Thin slice axial CT of the No IV contrast was given. Sagittal and coronal reformatted images were also obtained and reviewed. The dose-length product was 543.77 mGy-cm. Findings: BONES: No definite fracture demonstrated. Old healed fracture in the right inferior pubic ramus is noted. JOINT SPACES: Moderately narrowed suggestive of osteoarthritic changes. SOFT TISSUES: Slightly hyperdense areas seen in the pelvis and left side of the abdomen with multiple hypodensities. Further evaluation is advised to exclude ovarian masses. IMPRESSION: No definite acute fracture demonstrated. Hyperdense masses with hypodensity is suggestive of ovarian masses. Further evaluation advised. Reviewed, dictated and finalized at location A. CT scan - abdomen: Radiologist's impression: Non-contrast CT scan of the Abdomen and Pelvis Clinical indication: Left lower quadrant mass Technique: 2.5 mm axial scans were obtained through the abdomen and pelvis without intravenous or oral contrast. Dose reduction technique was used on this scan by utilizing automated exposure control and iterative reconstruction technique. The dose-length product (DLP) was 1594.74 mGy-cm. Findings: Images through the lung bases reveal right lower lobe consolidation with bronchiectasis/air bronchograms.. Multiple gallstones are present. Mildly nodular contour of liver suggests cirrhosis. There are probable splenorenal varices. The kidneys, spleen, pancreas, and adrenals appear normal. There are atherosclerotic calcifications of the aorta. . There is no evidence of bowel obstruction. Images through the pelvis were performed. There is no evidence of ascites or lymphadenopathy. Urinary bladder unremarkable. Left ovary is enlarged measuring 11.8 x 11.0 x 11.1 cm, with several cystic areas within it. There is a similar appearance of enlarged right ovary, which measures 7.6 x 4.6 x 3.5 cm. There is diffuse degenerative spondylosis of the spine. Impression: Marked enlargement of bilateral ovaries, left greater than right, as detailed above. Diagnostic considerations include ovarian hyperthecosis or ovarian hyperstimulation due to underlying gonadotropin secreting tumor or other hormonal imbalance, versus possibly other bilateral ovarian neoplastic/metastatic lesions. Gynecologic and possibly endocrinologic follow up/consultation advised. 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 Cholelithiasis. Right lower lobe consolidation with bronchiectasis and air bronchograms. Appearance is suggestive of chronic consolidation such as atelectasis or scarring. Correlate for acute pneumonia. Reviewed, dictated and finalized at location M. CT scan - head: Radiologist's impression: Non-contrast Head CT History: Multiple falls Technique: Axial non-contrast imaging of the brain was performed. Dose reduction technique was used on this scan by utilizing automated exposure control and iterative reconstruction technique. The dose-length product (DLP) was 681.00 mGy-cm. Findings: There is no evidence of intracranial hemorrhage, mass lesion, or acute infarct. Brain parenchyma appears normal. The ventricles and subarachnoid spaces are normal in size. The calvarium appears normal. The visualized paranasal sinuses and mastoid air cells are clear. Impression: No significant abnormality seen. Reviewed, dictated and finalized at location M. CT Lumbar Spine: Radiologist's impression: CT lumbar spine wo con Ordering provider: Laurel Reid History: 69 years Female with . fall/ALWAYS HAS BACK PAIN . Comparison: None. Technique: CT lumbar spine without contrast. Automated exposure control and iterative reconstruction technique were employed. The dose-length product was 1253.80 mGy-cm. FINDINGS: VERTEBRAE: Loss of height is noted in L1 and L2 which is most likely chronic. MRI evaluation advised. Otherwise, Normal height and alignment. No subluxation or visible acute fracture. Osteopenia of the bones. DISC SPACES: Narrowing of the disc L4-L5. Vacuum phenomena seen at the level of L3-L4 and L5-S1. Multilevel facet joint disease. T11-T12: Severe spinal canal stenosis. Bilateral narrowing of the foramina. T12-L1: No stenosis. L1-L2: No stenosis. L2-L3: No stenosis. L3-L4: Mild spinal canal stenosis secondary to broad based disc bulge, osteophytes, facet arthropathy, and ligamentum flavum hypertrophy. bilateral intervertebral foraminal narrowing by osteophytes. L4-L5: Severe spinal canal stenosis secondary to broad based disc bulge, facet arthropathy, and ligamentum flavum hypertrophy. Bilateral narrowing of the foramina with root compression. L5-S1: No stenosis. PARASPINOUS SOFT TISSUES: Mild atheromatous disease of the abdominal aorta. Cholelithiasis. Highly suggestive of ovarian masses seen in the midline and on the left side. Tiny calcification the left kidney suggestive of a stone. Bilateral sacroiliitis. IMPRESSION: Loss of height seen in L2 and L3 most likely chronic. MRI evaluation advised. Multilevel degenerative disc disease with variable degrees of spinal canal stenosis and intervertebral foraminal narrowing. Ovarian masses. Further evaluation advised. Cholelithiasis. Tiny left kidney stone. Reviewed, dictated and finalized at location A. Assessment and Plan Assessment and plan (1) Bacteremia: Code(s): R78.81 - Bacteremia Status: Acute Assessment and Plan: Patient had Gram-positive cocci in pairs waiting on final sensitivity report 2nd set with no growth to date this is likely secondary to her pneumonia since her UTI grew Gram-negative bacilli E coli * continue with IV Zosyn pending sensitivities (2) UTI (urinary tract infection): Code(s): N39.0 - Urinary tract infection, site not specified Status: Acute Assessment and Plan: patient has UTI grew E coli * continue with IV Zosyn (3) Pneumonia: Qualifiers: Laterality: right Lung location: lower lobe of lung Pneumonia type: due to unspecified organism Qualified Code(s): J18.9 - Pneumonia, unspecified organism Code(s): J18.9 - Pneumonia, unspecified organism Status: Acute Assessment and Plan: * Nebs, abx, * Incentive spirometer, * Legionella/Pneumococcal Ag testing sent out * MRSA screen negative * remains on IV Zosyn * oxygen p.r.n. currently on room air * guaifenesin b.i.d. (4) Fall: Qualifiers: Encounter type: initial encounter Qualified Code(s): W19.XXXA - Unspecified fall, initial encounter Code(s): W19.XXXA - Unspecified fall, initial encounter Status: Acute Assessment and Plan: Multiple falls at home due to chronic back pain and weakness from time to time -Continue home pain medication PRN -PT/OT Swing bed (5) Enlarged ovary: Code(s): N83.8 - Other noninflammatory disorders of ovary, fallopian tube and broad ligament Status: Acute Assessment and Plan: Known bilateral ovarian hypertrophy Left ovarian mass is very large and pushing on bowel * No abdominal pain/tenderness present at this time * Patient OBGYN following outpatient. (6) Type 2 diabetes mellitus: Code(s): E11.9 - Type 2 diabetes mellitus without complications Status: Acute Assessment and Plan: * Hold metformin due to decrease renal function * ACHS fingerstick glucose with moderate dose SSI ordered * Diet--Diabetic * hypoglycemic protocol (7) Tobacco abuse: Code(s): Z72.0 - Tobacco use Status: Acute Assessment and Plan: * Nicotine patch available * remove at night * encouraged smoking cessation (8) Cirrhosis: Code(s): K74.60 - Unspecified cirrhosis of liver Status: Acute Assessment and Plan: * On furosemide and spironolactone * Continued lactulose daily ammonia levels were elevated on previous admission Plan Code status: Full code per patient DVT prophylaxis: Lovenox Stress ulcer prophylaxis: Protonix 40 daily PT/OT notes: Swing Bed Disposition: patient continues admission to the medical unit for rehab as well as IV antibiotic for bacteremia pending final sensitivities once patient is stable plan is to return home with daughter. Quality VTE Prophylaxis VTE prophylaxis: pharmacologic ordered (Lovenox) -Patient's previous records reviewed on admission -ER notes reviewed in detail on admission -discussed all findings and current treatment plan with patient/Family/POA -Consultations reviewed for recommendations -Patient's disposition for safe discharge discussed with case planner Dictation performed by [employer] direct speech recognition software, therefore tile mechanic helper variants and typographical errors may occur. Hospitalist MIPS Advance Care Plan I have confirmed that the patient's Advanced Care Plan is present, code status is documented, or surrogate decision maker is listed in patient medical record.: Yes Medication Reconciliation I have utilized all available resources to obtain, update and review the patients current medications (includes all prescriptions, OTC, herbals, cannabis, and nutritional supplements).: Yes The patient is not eligible for med reconciliation; the patient is in a emergent medical situation where delaying treatment would jeopardize the patients health.: No
[2024-09-06 10:04] LABS: Hematocrit 38.4 % (35.0-42.0); Hemoglobin 12.8 g/dL (11.7-13.8); Mean Corpuscular HGB Conc 33.3 g/dL (32-36); Mean Corpuscular Hemoglobin 31.8 pg (27.0-31.0); Mean Corpuscular Volume 95.5 fL (78.0-102.0); Mean Platelet Volume 9.3 fl (9.2-11.8); Platelet Count Result 261 K/mm3 (150-420); Red Blood Count 4.02 M/mm3 (4.20-5.40); Red Cell Distribution Width 13.3 % (11.6-14.4); White Blood Count 7.2 K/mm3 (4.8-10.8)
[2024-09-06] MEDS: PANTOPRAZOLE 40 MG TABLET PO (10:12)
[2024-09-06 10:22] LABS: Alanine Aminotransferase 18 U/L (14-59); Albumin Level 2.7 g/dL (3.4-5.0); Alkaline Phosphatase 48 U/L (46-116); Anion Gap 2 mmol/L (4-12); Aspartate Amino Transferase 25 U/L (15-37); Bilirubin,Total 1.6 mg/dL (0.00-1.00); Blood Urea Nitrogen 8 mg/dL (7-18); Calcium 9.4 mg/dL (8.5-10.1); Carbon Dioxide 34 mmol/L (21-32); Chloride 99 mmol/L (98-108); Estimated CRCL calculation 47 ml/min; Estimated Glomerular Filt Rate 42; Glucose 183 mg/dL (70-99); Magnesium 1.5 mg/dL (1.8-2.4); Osmolality Calculated 283 mOsm/kg (285-295); Potassium 3.2 mmol/L (3.5-5.1); Sodium 135 mmol/L (136-145); Total Protein 6.9 g/dL (6.4-8.2)
[2024-09-06 16:00] VITALS: BP 120/51; PULSE 81; RESP 18; TEMP 36.2; O2SAT 95
[2024-09-06 17:06] LABS: Glucose Point of Care 112 mg/dl (65-105)
[2024-09-06 17:25] LABS: Glucose Point of Care 90 mg/dl (65-105)
--- NOTE | 2024-09-06 19:54 | PC.NURSE ---
PATIENT WAS ASSISTED UP TO BEDSIDE COMMODE BY FAMILY MEMBER IN ROOM. PATIENT DENIES ANY OTHER NEEDS
[2024-09-06] MEDS: AMITRIPTYLINE HCL 10 MG TABLET BY MOUTH (20:39)
[2024-09-07] VITALS: BP 114/51; PULSE 85; RESP 16; TEMP 36.5; O2SAT 93
--- NOTE | 2024-09-07 02:42 | PC.NURSE ---
PATIENT USED GAIT BELT AND WALKER TO GET TO BEDSIDE COMMODE AND BACK TO BED. NEW GOWN GIVEN DUE TO SWEATING
[2024-09-07] MEDS: PIPERACILLN/TAZ 3.375GM/NS50ML 3.375 GM/50 ML BAG IVPB ×4 (02:49→20:40)
[2024-09-07 08:00] VITALS: BP 129/60; PULSE 91; RESP 16; TEMP 35.9; O2SAT 98
[2024-09-07 08:04] LABS: Glucose Point of Care 91 mg/dl (65-105)
[2024-09-07] MEDS: ENOXAPARIN 40 MG/0.4 ML SYRINGE SUB-Q (09:16)
[2024-09-07] MEDS: NICOTINE (*PBKC) 21 MG PATCH 1 PATCH TRANSDERM (09:16)
[2024-09-07] MEDS: HYDROcodone/acetaminophen (*CRX) 7.5-325 MG TABLET 1 TAB PO ×2 (09:17→20:36)
[2024-09-07] MEDS: LACTULOSE 20 GM/30 ML UDC PO (09:17)
[2024-09-07] MEDS: MAGNESIUM OXIDE 400 MG TABLET PO (09:17)
[2024-09-07] MEDS: SPIRONOLACTONE 25 MG TABLET 50 MG PO ×2 (09:17→16:37)
[2024-09-07] MEDS: PANTOPRAZOLE 40 MG TABLET PO (09:17)
[2024-09-07] MEDS: FUROSEMIDE 40 MG TABLET 80 MG PO (09:17)
[2024-09-07] MEDS: AZITHROMYCIN 250 MG TABLET 500 MG PO (09:17)
[2024-09-07] MEDS: ROSUVASTATIN 10 MG TABLET 20 MG PO (09:17)
[2024-09-07] MEDS: guaiFENesin 12 HR 600 MG TABCR 1200 MG PO ×2 (09:17→20:36)
[2024-09-07] MEDS: FLUoxetine HCL 20 MG CAPSULE PO (09:17)
[2024-09-07 12:01] LABS: Glucose Point of Care 66 mg/dl (65-105)
[2024-09-07 16:00] VITALS: BP 130/64; PULSE 86; RESP 18; TEMP 36; O2SAT 98
[2024-09-07 16:39] LABS: Glucose Point of Care 106 mg/dl (65-105)
[2024-09-07 20:00] VITALS: PULSE 86; RESP 18; O2SAT 98
[2024-09-07] MEDS: AMITRIPTYLINE HCL 10 MG TABLET BY MOUTH (20:36)
[2024-09-07 20:38] LABS: Glucose Point of Care 82 mg/dl (65-105)
[2024-09-08] VITALS: BP 126/76; PULSE 87; RESP 17; TEMP 36.4; O2SAT 92
[2024-09-08] MEDS: PIPERACILLN/TAZ 3.375GM/NS50ML 3.375 GM/50 ML BAG IVPB ×4 (02:30→20:44)
[2024-09-08 06:54] LABS: Ammonia 46 umol/L (11-32)
[2024-09-08 08:00] VITALS: BP 118/81; PULSE 86; RESP 18; TEMP 36.3; O2SAT 94
[2024-09-08 08:16] LABS: Glucose Point of Care 82 mg/dl (65-105)
[2024-09-08] MEDS: ROSUVASTATIN 10 MG TABLET 20 MG PO (09:01)
[2024-09-08] MEDS: ENOXAPARIN 40 MG/0.4 ML SYRINGE SUB-Q (09:01)
[2024-09-08] MEDS: HYDROcodone/acetaminophen (*CRX) 7.5-325 MG TABLET 1 TAB PO ×2 (09:01→20:44)
[2024-09-08] MEDS: LACTULOSE 20 GM/30 ML UDC PO (09:01)
[2024-09-08] MEDS: NICOTINE (*PBKC) 21 MG PATCH 1 PATCH TRANSDERM (09:01)
[2024-09-08] MEDS: guaiFENesin 12 HR 600 MG TABCR 1200 MG PO ×2 (09:02→20:44)
[2024-09-08] MEDS: PANTOPRAZOLE 40 MG TABLET PO (09:02)
[2024-09-08] MEDS: FLUoxetine HCL 20 MG CAPSULE PO (09:02)
[2024-09-08] MEDS: SPIRONOLACTONE 25 MG TABLET 50 MG PO ×2 (09:02→16:36)
[2024-09-08] MEDS: MAGNESIUM OXIDE 400 MG TABLET PO (09:02)
[2024-09-08] MEDS: FUROSEMIDE 40 MG TABLET 80 MG PO (09:02)
--- NOTE | 2024-09-08 10:21 | PM.EVENT ---
Event Note Event Note Event Note: Preliminary for blood cultures came back as streptococcus mitis group discussed with pharmacy as if Zosyn would cover and was informed that it would.
[2024-09-08 12:04] LABS: Glucose Point of Care 91 mg/dl (65-105)
[2024-09-08 16:00] VITALS: BP 107/67; PULSE 86; RESP 16; TEMP 35.9; O2SAT 94
[2024-09-08 16:40] LABS: Glucose Point of Care 111 mg/dl (65-105)
[2024-09-08 20:00] VITALS: PULSE 86; RESP 16; O2SAT 94
[2024-09-08] MEDS: AMITRIPTYLINE HCL 10 MG TABLET BY MOUTH (20:44)
[2024-09-08 20:49] LABS: Glucose Point of Care 69 mg/dl (65-105)
[2024-09-08 21:28] LABS: Glucose Point of Care 139 mg/dl (65-105)
[2024-09-09] VITALS: BP 103/42; PULSE 82; RESP 17; TEMP 36.4; O2SAT 95
[2024-09-09] MEDS: PIPERACILLN/TAZ 3.375GM/NS50ML 3.375 GM/50 ML BAG IVPB (02:07)
[2024-09-09 07:52] LABS: Glucose Point of Care 83 mg/dl (65-105)
[2024-09-09 08:00] VITALS: BP 99/58; PULSE 80; RESP 20; TEMP 36; O2SAT 94
[2024-09-09] MEDS: ROSUVASTATIN 10 MG TABLET 20 MG PO (09:52)
[2024-09-09] MEDS: NICOTINE (*PBKC) 21 MG PATCH 1 PATCH TRANSDERM (09:52)
[2024-09-09] MEDS: FLUoxetine HCL 20 MG CAPSULE PO (09:52)
[2024-09-09] MEDS: ENOXAPARIN 40 MG/0.4 ML SYRINGE SUB-Q (09:52)
[2024-09-09] MEDS: MAGNESIUM OXIDE 400 MG TABLET PO (09:52)
[2024-09-09] MEDS: LACTULOSE 20 GM/30 ML UDC PO (09:52)
[2024-09-09] MEDS: PANTOPRAZOLE 40 MG TABLET PO (09:52)
[2024-09-09] MEDS: AMOXICILLIN/CLAVULANATE K 875-125 MG TAB 1 TABLET PO ×3 (09:52→21:05)
[2024-09-09] MEDS: HYDROcodone/acetaminophen (*CRX) 7.5-325 MG TABLET 1 TAB PO ×2 (09:53→21:05)
[2024-09-09] MEDS: guaiFENesin 12 HR 600 MG TABCR 1200 MG PO ×2 (09:53→21:05)
[2024-09-09] MEDS: FUROSEMIDE 40 MG TABLET 80 MG PO (09:53)
[2024-09-09] MEDS: SPIRONOLACTONE 25 MG TABLET 50 MG PO ×2 (09:53→17:46)
[2024-09-09 11:54] LABS: Glucose Point of Care 76 mg/dl (65-105)
[2024-09-09 16:00] VITALS: BP 126/65; PULSE 85; RESP 20; TEMP 36.1; O2SAT 95
[2024-09-09 17:31] LABS: Glucose Point of Care 137 mg/dl (65-105)
[2024-09-09 20:00] VITALS: PULSE 85; RESP 20; O2SAT 95
[2024-09-09] MEDS: AMITRIPTYLINE HCL 10 MG TABLET BY MOUTH (21:05)
[2024-09-09 21:10] LABS: Glucose Point of Care 101 mg/dl (65-105)
[2024-09-10] VITALS: BP 106/53; PULSE 83; RESP 16; TEMP 36.6; O2SAT 95
[2024-09-10] MEDS: AMOXICILLIN/CLAVULANATE K 875-125 MG TAB 1 TABLET PO ×3 (06:23→21:32)
[2024-09-10 08:00] VITALS: BP 128/59; PULSE 86; RESP 14; TEMP 36.1; O2SAT 95
[2024-09-10 08:02] LABS: Glucose Point of Care 96 mg/dl (65-105)
[2024-09-10] MEDS: NICOTINE (*PBKC) 21 MG PATCH 1 PATCH TRANSDERM (09:17)
[2024-09-10] MEDS: LACTULOSE 20 GM/30 ML UDC PO (09:17)
[2024-09-10] MEDS: ENOXAPARIN 40 MG/0.4 ML SYRINGE SUB-Q (09:18)
[2024-09-10] MEDS: FLUoxetine HCL 20 MG CAPSULE PO (09:19)
[2024-09-10] MEDS: ROSUVASTATIN 10 MG TABLET 20 MG PO (09:19)
[2024-09-10] MEDS: PANTOPRAZOLE 40 MG TABLET PO (09:19)
[2024-09-10] MEDS: guaiFENesin 12 HR 600 MG TABCR 1200 MG PO ×2 (09:19→20:48)
[2024-09-10] MEDS: FUROSEMIDE 40 MG TABLET 80 MG PO (09:20)
[2024-09-10] MEDS: MAGNESIUM OXIDE 400 MG TABLET PO (09:20)
[2024-09-10] MEDS: SPIRONOLACTONE 25 MG TABLET 50 MG PO ×2 (09:20→18:02)
[2024-09-10 11:44] LABS: Glucose Point of Care 137 mg/dl (65-105)
[2024-09-10] MEDS: HYDROcodone/acetaminophen (*CRX) 7.5-325 MG TABLET 1 TAB PO ×2 (13:52→21:58)
[2024-09-10 16:35] VITALS: BP 121/59; PULSE 87; RESP 16; TEMP 35.6; O2SAT 94
[2024-09-10 17:04] LABS: Glucose Point of Care 150 mg/dl (65-105)
[2024-09-10 19:46] VITALS: PULSE 81; RESP 18; O2SAT 95
[2024-09-10] MEDS: AMITRIPTYLINE HCL 10 MG TABLET BY MOUTH (20:48)
[2024-09-10 20:53] LABS: Glucose Point of Care 70 mg/dl (65-105)
--- NOTE | 2024-09-10 23:50 | PC.NURSE ---
Pt up to the BSC with the walker and gait belt and assist of one. Pt voided and returned to bed with the walker, belt and assist of one.
[2024-09-11] VITALS: BP 89/41; PULSE 88; RESP 20; TEMP 36.1; O2SAT 95
[2024-09-11] MEDS: AMOXICILLIN/CLAVULANATE K 875-125 MG TAB 1 TABLET PO ×3 (05:21→21:16)
[2024-09-11 08:00] VITALS: BP 118/45; PULSE 90; RESP 14; TEMP 36.6; O2SAT 95
[2024-09-11 08:09] LABS: Glucose Point of Care 88 mg/dl (65-105)
[2024-09-11] MEDS: NICOTINE (*PBKC) 21 MG PATCH 1 PATCH TRANSDERM (09:17)
[2024-09-11] MEDS: FUROSEMIDE 40 MG TABLET 80 MG PO (09:18)
[2024-09-11] MEDS: FLUoxetine HCL 20 MG CAPSULE PO (09:18)
[2024-09-11] MEDS: ROSUVASTATIN 10 MG TABLET 20 MG PO (09:18)
[2024-09-11] MEDS: SPIRONOLACTONE 25 MG TABLET 50 MG PO ×2 (09:18→16:35)
[2024-09-11] MEDS: PANTOPRAZOLE 40 MG TABLET PO (09:19)
[2024-09-11] MEDS: MAGNESIUM OXIDE 400 MG TABLET PO (09:19)
[2024-09-11] MEDS: HYDROcodone/acetaminophen (*CRX) 7.5-325 MG TABLET 1 TAB PO ×2 (09:19→21:16)
[2024-09-11] MEDS: guaiFENesin 12 HR 600 MG TABCR 1200 MG PO ×2 (09:19→21:17)
[2024-09-11] MEDS: ENOXAPARIN 40 MG/0.4 ML SYRINGE SUB-Q (09:21)
[2024-09-11 11:37] LABS: Glucose Point of Care 157 mg/dl (65-105)
[2024-09-11 16:00] VITALS: BP 118/50; PULSE 89; RESP 16; TEMP 36.1; O2SAT 94
[2024-09-11 16:40] LABS: Glucose Point of Care 120 mg/dl (65-105)
[2024-09-11 21:14] LABS: Glucose Point of Care 93 mg/dl (65-105)
[2024-09-11] MEDS: AMITRIPTYLINE HCL 10 MG TABLET BY MOUTH (21:17)
[2024-09-11 23:39] VITALS: BP 106/49; PULSE 86; RESP 20; TEMP 36.2; O2SAT 93
[2024-09-12] MEDS: AMOXICILLIN/CLAVULANATE K 875-125 MG TAB 1 TABLET PO ×3 (06:08→21:22)
[2024-09-12 07:45] LABS: Glucose Point of Care 88 mg/dl (65-105)
[2024-09-12 08:00] VITALS: BP 124/65; PULSE 86; RESP 16; TEMP 36.2; O2SAT 96
[2024-09-12] MEDS: ENOXAPARIN 40 MG/0.4 ML SYRINGE SUB-Q (08:56)
[2024-09-12] MEDS: NICOTINE (*PBKC) 21 MG PATCH 1 PATCH TRANSDERM (08:57)
[2024-09-12] MEDS: LACTULOSE 20 GM/30 ML UDC PO (08:59)
[2024-09-12] MEDS: FLUoxetine HCL 20 MG CAPSULE PO (08:59)
[2024-09-12] MEDS: PANTOPRAZOLE 40 MG TABLET PO (09:00)
[2024-09-12] MEDS: SPIRONOLACTONE 25 MG TABLET 50 MG PO ×2 (09:00→17:23)
[2024-09-12] MEDS: guaiFENesin 12 HR 600 MG TABCR 1200 MG PO ×2 (09:00→21:20)
[2024-09-12] MEDS: ROSUVASTATIN 10 MG TABLET 20 MG PO (09:01)
[2024-09-12] MEDS: FUROSEMIDE 40 MG TABLET 80 MG PO (09:01)
[2024-09-12] MEDS: MAGNESIUM OXIDE 400 MG TABLET PO (09:02)
[2024-09-12 12:01] LABS: Glucose Point of Care 156 mg/dl (65-105)
[2024-09-12 16:00] VITALS: BP 119/63; PULSE 84; RESP 16; TEMP 35.9; O2SAT 94
[2024-09-12 16:24] LABS: Glucose Point of Care 123 mg/dl (65-105)
[2024-09-12] MEDS: AMITRIPTYLINE HCL 10 MG TABLET BY MOUTH (21:20)
[2024-09-12 21:21] LABS: Glucose Point of Care 113 mg/dl (65-105)
[2024-09-13] VITALS: BP 131/45; PULSE 86; RESP 16; TEMP 36.4; O2SAT 95
[2024-09-13 03:32] LABS: Glucose Point of Care 105 mg/dl (65-105)
[2024-09-13] MEDS: AMOXICILLIN/CLAVULANATE K 875-125 MG TAB 1 TABLET PO (06:28)
[2024-09-13 07:05] LABS: Hematocrit 41.2 % (35.0-42.0); Hemoglobin 13.2 g/dL (11.7-13.8); Mean Corpuscular Hemoglobin 31.9 pg (27.0-31.0); Mean Corpuscular Volume 99.5 fL (78.0-102.0); Mean Platelet Volume 9.1 fl (9.2-11.8); Platelet Count Result 237 K/mm3 (150-420); Red Blood Count 4.14 M/mm3 (4.20-5.40); Red Cell Distribution Width 13.3 % (11.6-14.4); White Blood Count 7.1 K/mm3 (4.8-10.8)
[2024-09-13 07:37] LABS: Alanine Aminotransferase 18 U/L (6-35); Albumin Level 3.3 g/dL (3.5-5.1); Alkaline Phosphatase 57 U/L (38-126); Anion Gap 2 mmol/L (4-12); Aspartate Amino Transferase 36 U/L (14-36); Bilirubin,Total 0.8 mg/dL (0.2-1.3); Blood Urea Nitrogen 11 mg/dL (7-17); Calcium 9.1 mg/dL (8.4-10.2); Carbon Dioxide 28 mmol/L (22-30); Chloride 106 mmol/L (98-107); Estimated CRCL calculation 69 ml/min; Estimated Glomerular Filt Rate > 60; Glucose 86 mg/dL (65-110); Osmolality Calculated 280 mOsm/kg (285-295); Sodium 136 mmol/L (137-145); Total Protein 6.8 g/dL (6.3-8.2)
[2024-09-13 07:44] LABS: Glucose Point of Care 97 mg/dl (65-105)
[2024-09-13 08:00] VITALS: BP 110/54; PULSE 82; RESP 18; TEMP 36.1; O2SAT 96
--- NOTE | 2024-09-13 08:57 | P.DS_ITS ---
DS: Admitting Diagnosis Discharge Date 09/13/2024 Admitting Diagnosis Sepsis/Pneumonia/UTI/Acute Respiratory failure with hypoxia transitioned to Swing bed for Rehab DS: Discharge Diagnosis Discharge Diagnosis (1) Sepsis: Code(s): A41.9 - Sepsis, unspecified organism Status: Acute (2) Acute hypoxic respiratory failure: Code(s): J96.01 - Acute respiratory failure with hypoxia Status: Acute (3) UTI (urinary tract infection): Code(s): N39.0 - Urinary tract infection, site not specified Status: Acute (4) Pneumonia: Qualifiers: Laterality: right Lung location: lower lobe of lung Pneumonia type: due to unspecified organism Qualified Code(s): J18.9 - Pneumonia, unspecified organism Code(s): J18.9 - Pneumonia, unspecified organism Status: Acute (5) Fall: Qualifiers: Encounter type: initial encounter Qualified Code(s): W19.XXXA - Unspecified fall, initial encounter Code(s): W19.XXXA - Unspecified fall, initial encounter Status: Acute (6) Enlarged ovary: Code(s): N83.8 - Other noninflammatory disorders of ovary, fallopian tube and broad ligament Status: Acute (7) Type 2 diabetes mellitus: Code(s): E11.9 - Type 2 diabetes mellitus without complications Status: Acute (8) Tobacco abuse: Code(s): Z72.0 - Tobacco use Status: Acute (9) Cirrhosis: Code(s): K74.60 - Unspecified cirrhosis of liver Status: Acute (10) BISMARK (acute kidney injury): Code(s): N17.9 - Acute kidney failure, unspecified Status: Acute DS: Summary Hospital Course Reason for hospitalization: Sepsis/Pneumonia/UTI/Acute Respiratory failure with hypoxia Hospital Course: Admission This is a 69 year old female patient who lives at home with family who is admitted after she had a few falls from bed complaining of chronic back pain and pain to back of head. Imaging in ER suggests right lower lobe consolidation concerning for pneumonia. 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 Urinalysis collected after IV Zosyn still shows findings consistent with UTI including positive nitrites. Prior urine culture showed E.coli that was resistant to fluoroquinolones. We will continue IV Zosyn on admission for pneumonia and UTI. We will also add azithromycin. Patient requiring 2 L/min oxygen when normally she is on room air at home. ER labs also showed mild hypokalemia. Patient is on oral Lasix and spironolactone. She received 1 L of IV fluids in the ER. Labs also show very mild BISMARK compared to previous results. Will recheck labs in the morning including magnesium and renal function panel. Oral dose of potassium given on admission. Will add magnesium to blood already in lab. Patient was incontinent of urine in the emergency department. She stated that normally she knows when she has to urinate and she is ambulatory and mobile at home. She states though she is having profound weakness right now leading to frequent falls. Hospital Course: Sepsis was evidence by Elevated WBC, HR faster than 90, RR 20 with hypoxia, elevated lactic acid, secondary to PNA and UTI. CXR Right lower lobe consolidation noted on imaging, I Continued Zosyn, add azithromycin for pneumonia and UTI No IV fluids hemodynamically stable patient with history of cirrhosis Blood cultures did show Gram-positive cocci in pairs still discharge to swing however she will remain on IV Zosyn pending final culture and sensitivities as well as follow-up cultures to determine if we can deescalate to an oral antibiotic. patient has pneumonia could be possible Streptococcus causing bacteremia CXR was showing right lower lobe consolidation she was continued on nebulizer treatments, IV Zosyn, incentive spirometer full respiratory panel Legionella pneumococcal was pending at time of discharge will continue to monitor. She did have Acute hypoxia present on admission and was placed on supplemental oxygen which resolved quickly and remained on room air during her hospitalization UA captured after starting IV Zosyn with signs of UTI, Prior UTI was E. coli, resistant to fluoroquinolones, patient was placed on IV Zosyn and UA growing a Gram-negative bacilli continue on IV Zosyn pending final cultures due to bacteremia this will also cover for her UTI. PT/ OT was ordered and was recommended patient discharged to swing bed for continued rehabilitation needs and generalized weakness likely secondary to infectious process. 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 patient with history of cirrhosis ammonia level was elevated 60 patient reported she had not been taking her home medications I did add lactulose twice a day for elevated ammonia levels which improved and ordered daily lactulose 20 mg at discharge. patient seen and assessed on day of discharge to swing bed she is up in chair reporting feeling better but did have moderate cough with mild secretions remained on room air and still reporting generalized weakness. patient was discharged to swing bed will remain on IV antibiotic therapy pending final cultures plan for rehabilitation to return home with daughter. Status at Discharge Functional status at discharge: uses cane/walker Overall status at discharge: patient is progressing back to baseline Time Spent with Patient Time attestation: Total time spent providing and/or coordinating discharge services: Time spent: Greater than 30 minutes Exam Narrative: General appearance: Chronically ill appearing, no acute distress Skin: Normal color Chest and respiratory: Diminished at bases otherwise clear to auscultation Heart:RRR Abdomen: Soft, nontender, no organomegaly Musculoskeletal: Limited range of motion to all over mainly left hip and lower back, with diffuse tenderness. Patient have trouble moving Neurologic: Alert and oriented ×3 Psych: Flat effect DS: Data Data Completed and Pending Labs on day of discharge: Labs from last 24 hours 09/13/24 09/13/24 09/13/24 07:42 06:55 03:29 WBC 7.1 RBC 4.14 L Hgb 13.2 Hct 41.2 MCV 99.5 MCH 31.9 H MCHC 32.0 RDW 13.3 Plt Count 237 MPV 9.1 L Sodium 136 L Potassium 4.0 Chloride 106 Carbon Dioxide 28 Anion Gap 2 L BUN 11 Creatinine 0.82 Estim Creat Clear Calc 69 Estimated GFR > 60 Glucose 86 POC Capillary Glucose 97 105 Calculated Osmolality 280 L Calcium 9.1 Total Bilirubin 0.8 AST 36 ALT 18 Alkaline Phosphatase 57 Total Protein 6.8 Albumin 3.3 L 09/12/24 09/12/24 09/12/24 21:20 16:18 11:56 WBC RBC Hgb Hct MCV MCH MCHC RDW Plt Count MPV Sodium Potassium Chloride Carbon Dioxide Anion Gap BUN Creatinine Estim Creat Clear Calc Estimated GFR Glucose POC Capillary Glucose 113 H 123 H 156 H Calculated Osmolality Calcium Total Bilirubin AST ALT Alkaline Phosphatase Total Protein Albumin Imaging Radiologist's impression: Radiology Results: ITS Impressions Chest X-Ray 09/03/24 07:17 Impression: 1: Right basilar consolidation, consistent with pneumonia. Hip CT 09/03/24 08:26 IMPRESSION: No definite acute fracture demonstrated. Hyperdense masses with hypodensity is suggestive of ovarian masses. Further evaluation advised. Abdomen/Pelvis CT 09/03/24 08:28 Impression: Marked enlargement of bilateral ovaries, left greater than right, as detailed above. Diagnostic considerations include ovarian hyperthecosis or ovarian hyperstimulation due to underlying gonadotropin secreting tumor or other hormonal imbalance, versus possibly other bilateral ovarian neoplastic/metastatic lesions. Gynecologic and possibly endocrinologic follow up/consultation advised. 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 Cholelithiasis. Right lower lobe consolidation with bronchiectasis and air bronchograms. Appearance is suggestive of chronic consolidation such as atelectasis or scarring. Correlate for acute pneumonia. Head CT 09/03/24 08:28 Impression: No significant abnormality seen. Lumbar Spine CT 09/03/24 08:41 IMPRESSION: Loss of height seen in L2 and L3 most likely chronic. MRI evaluation advised. Multilevel degenerative disc disease with variable degrees of spinal canal stenosis and intervertebral foraminal narrowing. Ovarian masses. Further evaluation advised. Cholelithiasis. Tiny left kidney stone. Discharge Plan Discharge Attending physician on discharge: Minna Perez Consulting providers: Mona Rothman; Marie Her Discharging Clinician: Mona Rothman Anticipated Discharge Date/Time: 09/13/24 08:49 Patient Disposition: Home with Home Health Service Activity: may shower and as tolerated Diet: heart healthy Discharge Instructions: Per Care Coordination: [facility] will follow you at discharge. They will plan to see you on Monday, September 16 and will call you to schedule a time. UTI/Bacteremia (Blood infection) * I have prescribed oral antibiotics please take and complete as indicated * practice good hygiene to reduce reoccurrences of UTI * I encourage hydration cirrhosis * I have prescribed Lactulose daily 20gm please continue as prescribed to keep your ammonia levels down L How can you care for yourself at home? • Keep track of any new symptoms or changes in your symptoms. • Rest until you feel better. • Be safe with medicines. Take your medicines exactly as prescribed. Call your doctor if you think you are having a problem with your medicine. • Do not drive after taking a prescription pain medicine. • Ensure to follow-up with primary care physician as indicated and provide updated medication list provided to you at discharge. When should you call for help? Call 911 anytime you think you may need emergency care. For example, call if: • You passed out (lost consciousness). Call your doctor now or seek immediate medical care if: • You have new symptoms like fever, difficulty breathing, Chest pain, vomiting, or rash. • You have new or different pain. • You are confused and are having trouble thinking clearly. • Your symptoms are getting worse. Watch closely for changes in your health, and be sure to contact your doctor if: • You do not get better as expected. Patient Instructions: Antibiotic Form, Hydrocodone/Acetaminophen (By mouth), Amoxicillin/Clavulanate Potassium (By mouth), Lactulose (By mouth), Cirrhosis of the Liver (DC), Urinary Tract Infection in Women (DC), Fall Prevention for Older Adults (DC), Bacteremia (DC), Type 2 Diabetes in the Older Adult (DC) Patient Language: [place] Stand Alone Forms: General Discharge Information Follow-up/Referrals: LOR REYES [Other] - 2 weeks Discharge Medications: New magnesium oxide 400 mg (241.3 mg magnesium) Tablet 400 mg PO DAILY Qty: 30 0RF lactulose 10 gram/15 mL Solution 20 g PO QAM Qty: 3000 0RF amoxicillin-pot clavulanate 875-125 mg tablet 1 tablet PO Q12H Qty: 5 0RF Continued Trulicity 3 mg/0.5 mL pen injector 3 mg SUBCUT WEEKLY [place] 7.5 mg PO TID PRN (Reason: Pain) amitriptyline 10 mg PO QHS fluoxetine 20 mg PO DAILY furosemide 80 mg PO DAILY metformin 500 mg PO BID rosuvastatin 20 mg PO DAILY spironolactone 50 mg PO BID Date of admission: 09/05/24 11:23 Primary Care Provider: LOR REYES Admitting Provider: Minna Perez Attending physician on admission: Minna Perez Condition: Improved Quality VTE Prophylaxis VTE prophylaxis: pharmacologic ordered (Lovenox) -Patient's previous records reviewed on admission -ER notes reviewed in detail on admission -discussed all findings and current treatment plan with patient/Family/POA -Consultations reviewed for recommendations -Patient's disposition for safe discharge discussed with case management manager Dictation performed by [employer] direct speech recognition software, 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 Hospitalist MIPS Heart Failure (Exclusion) Patient has history of Heart Transplant or Left Ventricular Assistive Device?: No IF YES, STOP HERE Heart Failure (Qualifier) Patient has current or prior documentation of LVEF less than or equal to 40%, or mod/servere depressed LVSF?: No IF NO, STOP HERE
[2024-09-13] MEDS: FLUoxetine HCL 20 MG CAPSULE PO (09:23)
[2024-09-13] MEDS: ROSUVASTATIN 10 MG TABLET 20 MG PO (09:23)
[2024-09-13] MEDS: ENOXAPARIN 40 MG/0.4 ML SYRINGE SUB-Q (09:23)
[2024-09-13] MEDS: MAGNESIUM OXIDE 400 MG TABLET PO (09:23)
[2024-09-13] MEDS: guaiFENesin 12 HR 600 MG TABCR 1200 MG PO (09:23)
[2024-09-13] MEDS: PANTOPRAZOLE 40 MG TABLET PO (09:24)
[2024-09-13] MEDS: FUROSEMIDE 40 MG TABLET 80 MG PO (09:24)
[2024-09-13] MEDS: SPIRONOLACTONE 25 MG TABLET 50 MG PO (09:24)
[2024-09-13 11:53] LABS: Glucose Point of Care 97 mg/dl (65-105)
--- NOTE | 2024-09-13 14:22 | PC.NURSE ---
1400 dc to family and personal auto. dc instructions went over. family and patient both vocalize an understanding. daughter aware that patient refused morning dose of lactulose claiming that she would take her pill form once she gets home.
== END 2024-09-13 14:00 | disposition home health service (06) | DRG 871 ==
PROVIDERS: Nurse Practitioner Family; Admitting Provider Internal Medicine; Visit Provider Internal Medicine
DX: A40.9 Streptococcal sepsis, unspecified (principal); J18.9 Pneumonia, unspecified organism; N39.0 Urinary tract infection, site not specified; N17.9 Acute kidney failure, unspecified; B96.20 Unspecified Escherichia coli [E. coli] as the cause of diseases classified elsewhere; R53.1 Weakness; R29.6 Repeated falls; E11.9 Type 2 diabetes mellitus without complications; F41.9 Anxiety disorder, unspecified; F17.210 Nicotine dependence, cigarettes, uncomplicated; G89.29 Other chronic pain; K74.60 Unspecified cirrhosis of liver; M54.9 Dorsalgia, unspecified; N83.8 Other noninflammatory disorders of ovary, fallopian tube and broad ligament; Z79.84 Long term (current) use of oral hypoglycemic drugs; Z91.148 Patient's other noncompliance with medication regimen for other reason
CPT/HCPCS: 36415; 80053; 82140; 82948; 83735; 85027; 97110; 97161; 97165; 97530; 97535; A9270; J1650; J2543

== ENCOUNTER 2024-11-11 14:50 | Emergency (ER) | payer MEDICARE, MEDICAID, SELFPAY ==
[2024-11-11] VITALS (21 sets, daily range): BP systolic 106–130; BP diastolic 56–85; PULSE 77; RESP 18; TEMP 35.9; O2SAT 91–96
--- NOTE | ~2024-11-11 | XR_ITS ---
EXAMINATION: XR chest 1V portable Exam Date/Time: 11/11/2024 15:30 CDT HISTORY: weakness Comparison: 09/03/2024; CT abdomen pelvis 09/03/2024. RESULT: Lines, tubes, and devices: None. Lungs and pleura: Stable segmental airspace and linear opacities in the right lower lung. Cardiomediastinal silhouette: Stable. Other: No acute osseous or upper abdominal finding. IMPRESSION: Stable right lower lobe airspace disease and scarring. Reviewed, dictated and finalized at location K.
--- OUTSIDE RECORDS SUMMARY | 2024-11-11 14:56 | XMS_ITS | Data Portability ---
Author Organization [facility], [address] Neurology ([place]) Address [address] 4th [place] [address] Care Team Providers Care Visual Basic .Net Developer Name Role Phone LOR REYES Primary Care Provider [phone] Assessment Encounter Date Assessment Date Assessment LastModified by Organization Details LastModified Time 09/26/2024 09/26/2024 Will check urinalysis and culture at this time to ensure clearance of her UTI with still having urine odor. Will contact with results once available. For positive Tinel and left hand neuropathy will obtain EMG imaging at this time for her as well. Aware she will be contacted with appointment information once available. Patient verbalized understanding and has no new questions or concerns at this time. marco as Not available 09/26/2024 15:35:04 10/02/2024 10/02/2024 Assessment: 1. Squamous cell lung cancer 2. Right axillary abnormality Christina has a history of previously treated clinical stage IIIA squamous cell lung cancer. She completed adjuvant therapy and October 2019. She will be due for surveillance imaging in November and this will be scheduled accordingly. She will be notified of results. We discussed her right axillary findings and ultrasound will be ordered. She is overdue for screening mammogram, with her last mammogram done in 2020. We will order imaging to be done. She will return in 6 months for follow-up and reevaluation. She was instructed to call with any questions or concerns in the interim if needed. [email or web address] Not available 10/02/2024 16:50:05 Plan of Treatment Reminders Order Date Submit Date Provider Last Modified By Organization Details Last Modified Time Details Appointments Imaging 5.PRO 2024 10:15A M MRI Main [place] Not available Not available Not available Imaging 5.PRO 2024 01:45P M Radiology Not available Not available Not available Imaging 5.PRO 2024 02:00P M Radiology Not available Not available Not available Imaging 5.PRO 2024 11:45A M Radiology Not available Not available Not available [facility] Patient 20.EST 2024 01:20P M Dr. Sharon Hernández Not available Not available Not available [facility] Patient 20.EST 2024 01:40P M Dr. Lois Osborn Not available Not available Not available Lab urinalys is, complete 2024 025 [facility] (Lab) [place] Location, [address] [place] [address], [address], 09/26/2024 17:39:06 culture + sensitiv ity, urine 2024 025 [facility] (Lab) [place] Location, [address] [place] [address], [address], 09/27/2024 10:47:58 hemoglob in A1c + average glucose, QN, blood 2024 025 [place] [address] 139 [facility] (Lab) [place] Location, [address] [place] [address], [address], 07/30/2024 10:14:18 lipid panel, serum 2024 025 [facility] 139 [facility] (Lab) [place] Location, [address] [place] [address], [address], 10/30/2024 13:57:41 CMP, serum or plasma 2024 025 [facility] 139 [facility] (Lab) [place] Location, [address] [place] [address], [address], 08/13/2024 10:29:40 CBC 2024 025 [place] [address] 139 [facility] (Lab) [place] Location, [facility] [place], [address], 08/13/2024 10:29:52 urinalys is, complete 2024 025 [facility] 139 [facility] (Lab) [place] Location, [address] [place] [address], [address], 11/08/2024 17:15:41 gamma-gl utamyl transfer ase (ggt), serum 2024 025 [place] [address] 139 [facility] (Lab) [place] Location, [address] [place] [address], [address], 11/08/2024 17:22:04 PT/INR 2024 025 [place] [address] 139 [facility] (Lab) [place] Location, [address] [place] [address], [address], 08/13/2024 10:30:12 afp (alpha-f etoprote in) tumor marker, serum or plasma 2024 025 [place] [address] 139 [facility] (Lab) [place] Location, [address] [place] [address], [address], 08/13/2024 10:30:24 Referral None recorded . Procedures nerve conducti on study/EM G, upper extremit y (PROC) 2024 025 [place] [address] 139 Jax Putnam MD, [address] [place], [address], 11/11/2024 12:39:14 Surgeries None recorded . Imaging None recorded . Medication Orders hydrocod one 7.5 mg-aceta minophen 325 mg tablet 2024 025 [facility]/Pharmacy #[id number], [address] [place], [address], 09/26/2024 15:31:11 Trulicit y 4.5 mg/0.5 mL subcutan eous pen injector 2024 025 [facility]/Pharmacy #[id number], [address] [place], [address], 07/17/2024 16:04:48 Patient TargetsNo targets recorded. Patient Instructions Encounter Date Encounter Id Patient Instructions Last Modified By Organization Details Last Modified Time 07/17/2024 [id number] Recommend no alcohol no tobacco. Recommend chair tilts to build quad strength in the knees without aggravating arthritis. Instructed here in the office. Patient was able to do. Continue current medications. Consider beta-zaheer [email or web address] Not available 07/21/2024 22:34:43 Reason for Referral None Reported. Results Created Date Observation Date Name Description Value Unit Range Abnormal Flag Note LastModifiedBy Organization Detail LastModifiedTime 07/16/1907/15/2024 CBC CBC Not Available [facility] [address] [place] [address], [address], 07/15/2024 18:08:03 07/16/19 25 07/15/2024 CBC WBC 6.6 K/uL 3.8-11 .2 Not Available [facility] [address] [place] [address], [address], 07/15/2024 18:08:03 07/16/19 25 07/15/2024 CBC RBC 4.19 M/uL 3.92-5 .10 Not Available [facility] [address] [place] [address], [address], 07/15/2024 18:08:03 07/16/19 25 07/15/2024 CBC HGB 13.7 g/dL 11.8-1 5.3 Not Available [facility] [address] [place] [address], 108[address], 07/15/2024 18:08:03 07/16/19 25 07/15/2024 CBC HCT 39.5 % 36.5-4 4.8 Not Available [facility] [address] [place] [address], 595[address], 07/15/2024 18:08:03 07/16/19 25 07/15/2024 CBC MCV 94.3 fL 80.0-9 9.0 Not Available [facility] [address] [place] [address], 9[address], 07/15/2024 18:08:03 07/16/19 25 07/15/2024 CBC MCH 32.7 pg 25.5-3 3.6 Not Available [facility] [address] [place] [address], [address], 07/15/2024 18:08:03 07/16/19 25 07/15/2024 CBC MCHC 34.7 g/dL 32.0-3 6.0 Not Available [facility] [address] [place] [address], 419[address], 07/15/2024 18:08:03 07/16/19 25 07/15/2024 CBC RDW-SD 47.3 fL 35.1 - 46.3 high Not Available [facility] [address] [place] [address], [address], 07/15/2024 18:08:03 07/16/19 25 07/15/2024 CBC plt 246 K/uL 130-40 0 Not Available [facility] [address] [place] [address], 86[address], 07/15/2024 18:08:03 07/16/19 25 07/15/2024 CBC MPV 9.1 fL 9.3-12 .8 low Not Available [facility] [address] [place] [address], [address], 07/15/2024 18:08:03 07/16/19 25 07/15/2024 PT/IN R protime panel 2 Not Available [facility] [address] [place] [address], 355[address], 07/15/2024 18:24:10 07/16/19 25 07/15/2024 PT/IN R prothrombin 12.3 secon ds 9.4-13 .1 Not Available [facility] [address] [place] [address], [address], 07/15/2024 18:24:10 07/16/19 25 07/15/2024 PT/IN R INR 1.1 INR INTER PRETA TION 2.0-3 .0 FOR DEEP VEIN THROM BOSIS PULMO NARY EMBOL ISM ACUTE MYOCA RDIAL INFAR CTION ATRIA L FIBRI LLATI ON 3.0-4 .5 FOR MECHA NICAL HEART VALVE S Not Available [facility] [address] [place] [address], 727[address], 07/15/2024 18:24:10 07/16/19 25 07/15/2024 CMP, serum or plasm a comp. met. panel Not Available [facility] [address] [place] [address], 270[address], 07/15/2024 19:11:04 07/16/19 25 07/15/2024 CMP, serum or plasm a sodium 144 mmol/ L 136-14 6 Not Available [facility] [address] [place] [address], 237[address], 07/15/2024 19:11:04 07/16/19 25 07/15/2024 CMP, serum or plasm a potassium 3.8 mmol/ L 3.5-5. 1 Not Available [facility] [address] [place] [address], 20767, 07/15/2024 19:11:04 07/16/19 25 07/15/2024 CMP, serum or plasm a chloride 109 mmol/ L 98-110 Not Available [facility] [address] [place] [address], 64[address], 07/15/2024 19:11:04 07/16/19 25 07/15/2024 CMP, serum or plasm a CO2 28 mEq/L 20-32 Not Available [facility] - [facility] [address] [place] [address], 07[address], 07/15/2024 19:11:04 07/16/19 25 07/15/2024 CMP, serum or plasm a anion gap 11 mmol/ L 10-22 Not Available [facility] - [facility] [address] [place] [address], 224[address], 07/15/2024 19:11:04 07/16/19 25 07/15/2024 CMP, serum or plasm a glucose 61 mg/dL 70-100 low Not Available [facility] - [facility] [address] [place] [address], 98[address], 07/15/2024 19:11:04 07/16/19 25 07/15/2024 CMP, serum or plasm a calcium 10.0 mg/dL 8.4-10 .4 Not Available [facility] - [facility] [address] [place] [address], 449[address], 07/15/2024 19:11:04 07/16/19 25 07/15/2024 CMP, serum or plasm a total protein 7.0 g/dL 6.4-8. 3 Not Available [facility] - [facility] [address] [place] [address], 6[address], 07/15/2024 19:11:04 07/16/19 25 07/15/2024 CMP, serum or plasm a albumin 3.7 g/dL 3.5-5. 3 Not Available [facility] - [facility] [address] [place] [address], [address]79[address], 07/15/2024 19:11:04 07/16/19 25 07/15/2024 CMP, serum or plasm a ALP 74 U/L 44 - 127 Not Available [facility] - [facility] [address] [place] [address], 43732, 07/15/2024 19:11:04 07/16/19 25 07/15/2024 CMP, serum or plasm a AST (SGOT) 22 U/L 10-40 Not Available [facility] [address] [place] [address], 67[address], 07/15/2024 19:11:04 07/16/19 25 07/15/2024 CMP, serum or plasm a total bilirubin 0.8 mg/dL 0.2-1. 2 Not Available [facility] [address] [place] [address], 80168, 07/15/2024 19:11:04 07/16/19 25 07/15/2024 CMP, serum or plasm a ALT (SGPT) 13 U/L 8-35 Not Available [facility] [address] [place] [address], 23210, 07/15/2024 19:11:04 07/16/19 25 07/15/2024 CMP, serum or plasm a BUN 10 mg/dL 7-21 Not Available [facility] [address] [place] [address], 33414, 07/15/2024 19:11:04 07/16/19 25 07/15/2024 CMP, serum or plasm a creatinine 0.8 mg/dL 0.7-1. 3 Not Available [facility] [address] [place] [address], 44071, 07/15/2024 19:11:04 07/16/19 25 07/15/2024 CMP, serum or plasm a CKD-epi GFR 81 eGFR was calcu lated using the 2020 CKD-E PI equat ion. (Associate Professor Of Violin kassy Kidne y Disea se has an eGFR less than 60 mL/mi n/1.7 3mm for a perio d of three month s or more. ) This calcu latio n has not been valid ated for patie nt ages <18 or >90 years old. Not Available [facility] [address] [place] [address], [address], 07/15/2024 19:11:04 07/16/19 25 07/16/2024 afp (alph [...] t be inter prete d as absol capitan grande evide nce of the prese nce or absen ce of mal nant disea se. . This test is not inter preta ble in pregn ant femal es. Not Available [facility] [address] [place] [address], [address], 07/16/2024 07:40:33 08/07/19 25 08/12/2024 surgi suzanne patho logy study tissue exam biopsy [facility] [address] [place] [address],[place] [address] Ph. [phone] Gabriel Stringer MD, PhD, Medic al Direc tor BRIGITTE RODRIGUEZ MD Patie nt: MATTH EWS, CRYST IE C Sampl e ID: [id number] Repor t Statu s: Final :1 1954 Case #: [id number] Age: 69 Y Gende r: F Date Colle cted: 08/06 MRN # : [id number] Date Recei cali: 08/07 Repor shana Date: 08/12 FINAL DIAGN OSIS: A. Small bowel , duode num, biops y: - Small bowel mucos a with no signi fican t patho logic lamb es - Negat dorota for phillip c disea se B. Stoma ch, biops y: - Minim al chron ic inact dorota gastr itis - Negat dorota for H. pylor i on routi ne histo logy C. Gastr oesop hagea l junct ion, biops y: - GE junct ion mucos a with intes tinal metap lasia - Consi stent with [place] tt's esoph lalita if in the right endos copic setti ng - Negat dorota for dyspl yinka COMME NT: C: PAS/A B stain was perfo rmed on block C1 and is posit dorota for lyudmila t cells , suppo rting the above diagn osis. Elect jonny Corleyif ied by Boo Oakes MD Elect jonny mahmood 08/12 14:45 SPECI MEN SOURC E: A. Small bowel , duode num, biops y B. Stoma ch, biops y C. Gastr oesop hagea l junct ion, biops y GROSS DESCR IPTIO N: The speci men conta iner( s) and requi sitio n have the same patie nt name. A. Almodovar-g ray recei cali in 10% neutr al buffe red forma gayle for forma gayle-f ixed paraf fin-e mbedd ed secti ons label ed A, duode nal biops y is a singl e fragm ent of valladares- almodovar soft tissu e that is 0.4 cm in great est dimen cara. The speci men is entir tonia submi tted for histo logic study in one casse tte. B. Recei cali in 10% neutr al buffe red forma gayle for forma gayle-f ixed paraf fin-e mbedd ed secti ons label ed B, gastr ic biops y are two fragm ents of valladares- almodovar soft tissu e that are 0.3 and 0.4 cm in great est dimen cara. The speci men is entir tonia submi tted for histo logic study in one casse tte. C. Recei cali in 10% neutr al buffe red forma gayle for forma gayle-f ixed paraf fin-e mbedd ed secti ons label ed C, GE junct ion biops y are two fragm ents of valladares- almodovar soft tissu e that are 0.2 and 0.3 cm in great est dimen cara. The speci men is entir tonia submi tted for histo logic study in one casse tte. CLINI SUZANNE INFOR MATIO N: Liver cirrh osis. Not Available [facility] Only - [facility] Laboratory [facility] [address], [address], 08/12/2024 15:54:33 08/07/19 25 08/06/2024 gluco se, finge rstic k, blood Blood Glucose: mg/dl 72 Not Available [facility] (Ut) [address] [place] [address], [id number], 08/06/2024 16:50:14 08/07/19 25 08/06/2024 gluco se, finge rstic k, blood Blood Glucose: mg/dl 65 Not Available Admini strativ e Office (Ut) [address] [place] [address], [id number], 08/06/2024 16:12:07 09/27/19 25 09/26/2024 urina lysis , compl ete urinalysis, complete LOW LEVEL S OF HEMOG LOBIN IN ABSEN CE OF HEMAT URIA MAY NOT BE CLINI AIDAN SIGNI DARRICK TBrady Not Available [facility] [address] [place] [address], [address], 09/26/2024 17:39:06 09/27/19 25 09/26/2024 urina lysis , compl ete color DARK YELLOW Dipst ick may be inacc urate due to the color of the urine Not Available [facility] [address] [place] [address], [address], 09/26/2024 17:39:06 09/27/19 25 09/26/2024 urina lysis , compl ete clarity CLOUDY Not Available [facility] [address] [place] [address], 06[address], 09/26/2024 17:39:06 09/27/1909/26/2024 urina lysis , compl ete pH 5.0 5.0-7. 5 Not Available [facility] [address] [place] [address], 93[address], 09/26/2024 17:39:06 09/27/19 25 09/26/2024 urina lysis , compl ete specific gravity 1.027 1.000- 1.030 Not Available [facility] [address] [place] [address], [address], 09/26/2024 17:39:06 09/27/19 25 09/26/2024 urina lysis , compl ete blood 1+ negati ve abnormal Not Available [facility] [address] [place] [address], 890[address], 09/26/2024 17:39:06 09/27/19 25 09/26/2024 urina lysis , compl ete bilirubin 1+ negati ve abnormal Not Available [facility] [address] [place] [address], [address], 09/26/2024 17:39:06 09/27/19 25 09/26/2024 urina lysis , compl ete urobilinogen 1.0 0.2-1. 0 Not Available [facility] [address] [place] [address], 59798, 09/26/2024 17:39:06 09/27/19 25 09/26/2024 urina lysis , compl ete ketone TRACE negati ve abnormal Not Available [facility] [address] [place] [address], 55950, 09/26/2024 17:39:06 09/27/19 25 09/26/2024 urina lysis , compl ete glucose NEGATI VE negati ve Not Available [facility] [address] [place] [address], 40840, 09/26/2024 17:39:06 09/27/19 25 09/26/2024 urina lysis , compl ete protein 2+ negati ve abnormal Not Available [facility] [address] [place] [address], 76124, 09/26/2024 17:39:06 09/27/19 25 09/26/2024 urina lysis , compl ete nitrite POSITI VE negati ve abnormal Not Available [facility] [address] [place] [address], 17271, 09/26/2024 17:39:06 09/27/19 25 09/26/2024 urina lysis , compl ete leukocytes 2+ negati ve abnormal Not Available [facility] [address] [place] [address], 48279, 09/26/2024 17:39:06 09/27/19 25 09/26/2024 urina lysis , compl ete review * Micro scopi c resul ts revie wed [facility] Not Available [facility] [address] [place] [address], 714[address], 09/26/2024 17:39:06 09/27/19 25 09/26/2024 urina lysis , compl ete RBC 0-2 0-2/hp f Not Available [facility] [address] [place] [address], 01412, 09/26/2024 17:39:06 09/27/19 25 09/26/2024 urina lysis , compl ete WBC >50 0-5/hp f abnormal Not Available [facility] [address] [place] [address], 01528, 09/26/2024 17:39:06 09/27/19 25 09/26/2024 urina lysis , compl ete squamous epithelial 6-10 0-10/h pf Not Available [facility] [address] [place] [address], 36[address], 09/26/2024 17:39:06 09/27/19 25 09/26/2024 urina lysis , compl ete bacteria 4+ none abnormal Not Available [facility] [address] [place] [address], 69539, 09/26/2024 17:39:06 09/27/19 25 09/26/2024 urina lysis , compl ete hyaline cast 20 0-2/lp f abnormal Not Available [facility] [address] [place] [address], 16337, 09/26/2024 17:39:06 09/27/1909/28/2024 cultu re + sensi tivit y, urine urine culture and sens. CHRISTINA L URINE ESCHE NATHALIE A COLI DATE/ TIME: 09/28 08:02 >100, 000 CFU/m L Antib iotic Name ALEX mcg/m l Ampic illin >16 R Amoxi cilli n/K Clavu lanat e <=8/4 S Ceftr iaxon e <=1 S Cefox itin <=8 S Cefaz lenore <= 2 S Cipro floxa rob >2 R Cefep vel <=2 S Ertap enem <=0.5 S Nitro furan toin <=32 S Genta micin >8 R Imipe nem <=1 S Merop enem <=1 S Piper acill in/Ta zobac campos <=8 S Trime thopr im/Boyd lfmet hoxaz <=2/3 8 S Tetra cycli ne <=4 S Tobra mycin 8 R S=Loida cepti ble R=Res istan t I=Int ermed iate IB=Sp ecies poten tiall y may becom e resis tant to all B-lac campos drugs . Patie nt monit oring recom tierra d. Avoid other /comb ined B-lac campos drugs . ESB=E xtend ed spect rum Beta- lacta hayley (ESBL ) R*=Pr edict ed resis tant inter preta tion Not Available [facility] [address] [place] [address], 55[address], 09/28/2024 09:03:58 09/27/1909/27/2024 cultu re + sensi tivit y, urine urine culture and sens. PREL IM URINE GRAM NEGAT DOROTA RODS DATE/ TIME: 09/27 09:46 >100, 000 CFU/m L Not Available [facility] [address] [place] [address], 87188, 09/27/2024 10:47:58 10/11/1910/10/2024 MAMMO , felipee anjelica, digit al, bilat eral [facility] [address]st [address] [address] Teleph one [phone] Name: Patrick Avery [id number] am Date: 2024 Age: 69Phys ician: Lisa viera MD, Lois : 1954Ex aminat ion: MAMM BILATE RAL DIGITA L SCREEN ING EXAM: MAMM BILATE RAL DIGITA L SCREEN ING, MAMM SCREEN ING TOMOSY NTHESI S ACCESS ION: [id number], [id number] EXAM DATE: 025 1:45 PM HISTOR Y: Screen ing. COMPAR GINNY: Prior studie s dating back to 021. DENSIT Y: There are scatte red areas of fibrog landul ar densit y. FINDIN GS: 2D digita l compos ite views as well as 3D digita l tomosy nthesi s views were perfor med. There are no suspic ious masses , calcif icatio ns, or other findin gs within either breast . There has been no signif icant interv al change . IMPRES CARA: There is no mammog raphic eviden ce of malign shahbaz. ASSESS MENT: BI-RAD S 1: Negati ve. RECOMM ENDATI ON: 1. Screen ing Mammog emanuel bilate ral in 1 year COMMEN TS: The patien t will be entere d into an automa shana remind er system for a screen ing mammog emanuel in 1 year. The patien t has been or will be contac shana with the result s of this exam. Electr onical ly signed in Franks cribe by: EMMIE REYNOLDS MD on:09/29 1:56 PM cc: Page PAGE 1 of [facility] ES 1 [facility] Only - [facility] Radiology [address] [place] [address], [address], 10/11/2024 15:39:22 0610/10/2024 US, poornima pringle scula r [address] [address] Teleph one [phone] Name: Patrick Avery [id number] am Date: 2024 Age: 69Phys ician: Lisa viera MD, [facility] : 1954Ex aminat ion: US EXTREM ITY LIMITE D UPPER RIGHT NON VASCUL AR Ultras ound of the right axilla HISTOR Y: Palpab le lump in the right axilla for a few weeks. It is tender to touch. FINDIN GS: Ultras ound evalua tion of the palpab le lump in the right axilla is perfor med. The palpab le lump corres ponds with a lobula shana hypoec hoic subcut aneous lesion measur ing 0.8 x 1 x 0.8 cm in dimens ions. This demons trates minima l media intern al flow. A tract extend ing to the skin from this lesion seen. Findin gs maybe relate d to an inflam ed sebace ous cyst or follic ulitis . IMPRES CARA: As above Electr onical ly signed in Franks cribe by: BRAVO CHEN MD on:09/29 4:13 PM cc: Page PAGE 1 of [facility] ES 1 [place] Only - [facility] [address] [facility], [place], [address], 10/11/2024 16:37:37 11/01/19 25 05/10/2018 imagi ng/di agnos tic resul t No observ ation record ed. [email or web address] Not Available 0 10/31/2024 11:13:28 11/01/19 25 06/06/2018 imagi ng/di agnos tic resul t No observ ation record ed. [email or web address] Not Available 0 10/31/2024 11:13:39 11/01/19 25 06/15/2018 imagi ng/di agnos tic resul t No observ ation record ed. [email or web address] Not Available 0 10/31/2024 11:13:40 11/01/19 25 06/28/2018 imagi ng/di agnos tic resul t No observ ation record ed. [email or web address] Not Available 0 10/31/2024 11:13:43 11/01/19 25 08/28/2019 imagi ng/di agnos tic resul t No observ ation record ed. [email or web address] Not Available 0 10/31/2024 11:13:51 11/01/19 25 12/20/2018 imagi ng/di agnos tic resul t No observ ation record ed. [email or web address] Not Available 0 10/31/2024 11:14:08 11/01/19 25 12/26/2018 imagi ng/di agnos tic resul t No observ ation record ed. [email or web address] Not Available 0 10/31/2024 11:14:09 11/01/19 25 02/27/2020 imagi ng/di agnos tic resul t No observ ation record ed. [email or web address] Not Available 0 10/31/2024 11:14:17 11/01/19 25 04/19/2019 imagi ng/di agnos tic resul t No observ ation record ed. [email or web address] Not Available 0 10/31/2024 11:14:25 Result Notes Documentation Provider Name and Address Organization Details Recorded Time Mammo, Screening, Digital, Bilateral : [place] [id number] Name: Christina Ramirez Date: 10/10/2024 Age: 69Physician: MD Anurag, Lois : 1955Examination: MAMM BILATERAL DIGITAL SCREENING EXAM: MAMM BILATERAL DIGITAL SCREENING, MAMM SCREENING TOMOSYNTHESIS [id number] EXAM DATE: 10/10/2024 1:45 PM HISTORY: Screening. COMPARISON: Prior studies dating back to 05/21/2020. DENSITY: There are scattered areas of fibroglandular density. FINDINGS: 2D digital composite views as well as 3D digital tomosynthesis views were performed. There are no suspicious masses, calcifications, or other findings within either breast. There has been no significant interval change. IMPRESSION: There is no mammographic evidence of malignancy. ASSESSMENT: BI-RADS 1: Negative. RECOMMENDATION: 1. Screening Mammogram bilateral in 1 year COMMENTS: The patient will be entered into an automated reminder system for a screening mammogram in 1 year. The patient has been or will be contacted with the results of this exam. Electronically signed in Sokocribe by: EMMIE BLAKE MD on:10/10/2024 1:56 PM cc: Page PAGE 1 of [facility] 1 Not Available [facility] [facility] 10/11/2024 15:39:22 Problems Name Problem SNOMED Code Status Onset Date Resolution Date Notes Provider Name and Address Organization Details Recorded Time Low back pain 166537353 Active [address] [facility] 4 17:58:44 Vulval intraepith elial neoplasia grade 3 107431155 Active 2023 Lor Reyes MD [address] [place] [address], [address] , [facility] 5 22:22:47 Mass of uterine adnexa 660309305 Active 2023 JOHN MENDOZA NP [address] [place] [address], [address] , [facility] 4 16:01:56 Acute urinary tract infection 294168540 Active 2023 Lor Reyes MD [address] [place] [address], [address] , [facility] 4 22:32:53 Lymphadeno berkley 25773735 Active 2024 Lor Reyes MD [address] [place] [address], [address] , [facility] 5 16:24:05 Asthenia 22843445 Active 2024 Lor Reyes MD [address] [place] [address], [address] , [facility] 5 16:38:03 Chronic obstructiv e pulmonary disease 49051929 Active Not Available [facility] 5 16:38:19 Portal hypertensi on 88166468 Active Not Available [facility] 5 16:38:29 Gallardo's esophagus 015460321 Active [address] [facility] 5 12:36:04 Urinary system finding 396736710 Active 2024 Tammy Dennison, MEDICAL EXAMINER [address] [place] [address], [address] , [facility] 5 15:19:12 Peripheral nerve disease 632663601 Active 2024 Tammy Dennison, MEDICAL EXAMINER [address] [place] [address], [address] , [facility] 5 15:28:25 Mass of right axillary region 7881142051002 62461 Active 2024 Tiffany Lopez, TROLLEY COACH DRIVER, MEDICAL EXAMINER [address] [place] [address], [address] , [facility] 5 16:51:19 Localized swelling of right upper limb 0315263778811 9106 Active [address] [facility] 5 17:18:28 Heart failure with normal ejection fraction 870846079 Active 2024 Lor Reyes MD [address] [place] [address], [address] , [facility] 5 19:46:51 Cirrhosis of liver 65296349 Active 2023 Nestor Andrade PA-C [address] [place] [address], [address] , [facility] 5 15:40:23 Dyslipidem ia 882283600 Active [address] [facility] 4 09:29:14 Psoriasis 5837529 Active [address] [facility] 4 09:29:23 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 6238092576735 9107 Active [address] [facility] 4 09:29:32 Depressive disorder 63192688 [facility] 09:29:42 Pulmonary emphysema 59664242 Active 2023 Lor Reyes MD [address] [place] [address], [address] , [facility] 5 22:22:28 Hypertensi ve disorder 50540931 [facility] 4 09:30:38 Metabolic dysfunctio n-associat ed steatotic liver disease Active [address] [facility] 4 09:31:22 Chronic pain 40915392 Active [address] [facility] 4 11:11:16 Edema of lower extremity 679075935 Active [address] [facility] 4 11:17:49 Secondary hyperaldos teronism 46246635 Active Not Available [facility] 4 15:32:08 Type 2 diabetes mellitus 65036932 Active Kaylyn Farr [facility] 5 13:27:55 Morbid obesity 061261547 Active Not Available [facility] 4 15:32:35 Malignant neoplasm of lung 530481337 Active Not Available [facility] 4 15:32:51 Recurrent urinary tract infection 332053319 Active 2023 Lor Reyes MD [address] [place] [address], [address] , [facility] 4 15:37:51 Sprain of left wrist 9657478903409 9104 Active 2023 Lor Reyes MD [address] [place] [address], [address] , [facility] 4 15:41:20 Bilateral arthritis of knees 6516296329437 108 Active 2023 Lor Reyes MD [address] [place] [address], [address] , [facility] 5 22:23:11 Urinary tract infectious disease 41280140 Active 2023 [facility] 4 15:43:41 Squamous cell carcinoma of lung 089561951 Active 2023 Lor Reyes MD [address] [place] [address], [address] , [facility] 5 22:22:58 Notes:Some problems listed i n Documents: #[id number], #[id number], #[id number], #[id number], #[id number], #[id number], #[id number], #[id number], #[id number], #[id number] could not be added to this patient's chart. Please review these documents and add these problems to the patient's chart manually as needed. Problem Notes None recorded. Procedures Surgical History Date Name Laterality Status Provider Name and Address Organization Details Recorded Time delivery completed Not Available Health Note 09/26/2024 15:28:42 Colonoscopy with biopsy completed Not Available Health Note 09/26/2024 15:28:42 Imaging Results None recorded. Procedure Notes None recorded. Medical Equipment None Reported. Allergies Allergen ID Allergen Name Allergen Category Reaction Reaction Severity Criticality Documentation Date Start Date Code Code System Note Provider Name and Address Organization Details Recorded Time 371648 ciproflox acin hydrochlo ride medicatio n Not available Not available Not available 05/29/20232016 20218 RxNorm Comme nt: Annot ation s: KEYANA STONE RET 2016 3:14P M CARDIAC NURSE PRACTITIONER REACT ION; ; Not Available [facility] 22:01:33 Medications Name Sig Start Date Stop [...] 1 TABLET BY MOUTH EVERY DAY DIRECTED 2024 active Not Available Not Available Not Avai lable amitriptyli ne 10 mg tablet TAKE 1/2 TO 1 TAB BY MOUTH AT BEDTIME, MAY INCREASE GRADUALLY UP TO 5 TABS AT BEDTIME TOLERATED active Not Available Not Available No t Available hydrocodone 7.5 mg-acetamin ophen 325 mg tablet Take 1 tablet 3 times a day by oral route, for low back pain. 2024 active Not Available Not Available Not Avai lable cephalexin 500 mg capsule TAKE 2 CAPSULES [...] completed Not Available Not Available Not Available metoprolol succinate ER 25 mg tablet,exte nded release 24 hr TAKE 1 TABLET BY MOUTH EVERY DAY active Not Available Not Available No t Available fluoxetine 20 mg capsule TAKE 1 CAPSULE BY MOUTH EVERY DAY 2024 active Not Available Not Available Not Avai lable metformin ER 500 mg tablet,exte nded release 24 hr TAKE 2 TABLETS BY MOUTH EVERY DAY 09/27 completed Not Available Not Available Not Available spironolact one 50 mg tablet TAKE 1 TABLET BY MOUTH TWICE A DAY active Not Available Not Available No t Available amoxicillin 875 mg-potassiu m clavulanate 125 mg tablet TAKE 1 TABLET BY MOUTH EVERY 12 HOURS active Not Available Not Available No t [...] oin monohydrate /macrocryst als 100 mg capsule Take 1 capsule every 12 hours by oral route for 5 days. 10/09 completed Not Available Not Available Not Available lactulose 10 gram/15 mL oral solution TAKE 30 ML BY MOUTH EVERY MORNING active Not Available Not Available No t Available metformin ER 500 mg 24 hr tablet,exte nded release (gastric retention) TAKE 2 TABLETS BY MOUTH EVERY DAY. DUE FOR APPT. 09/27 completed Not Available Not Available Not Available Xifaxan 550 mg tablet TAKE 1 TABLET BY MOUTH TWICE A DAY active Not Available Not Available No t Available OneTouch Verio test strips USE TO TEST ONCE DAILY 2024 active Not Available Not Available Not Avai lable Trulicity 1.5 mg/0.5 mL subcutaneou s pen injector ADMINISTE R 1.5 MG UNDER THE SKIN WEEKLY 07/15 completed Not Available Not Available Not Available OneTouch Delica Plus Lancet 30 gauge USE DIRECTED. TO TEST ONCE DAILY active Not Available Not Available No t Available Trulicity 3 mg/0.5 mL subcutaneou s pen injector INJECT 1 PEN (3MG) ONCE WEEKLY 07/21 completed Not Available Not Available Not Available Trulicity 4.5 mg/0.5 mL subcutaneou s pen injector INJECT 4.5MG SUBCUTANE OUSLY WEEKLY active Not Available Not Available No t Available Vitals Date Recorded Body height Heart rate Oxygen saturation Oxygen saturation in Arterial blood by Pulse oximetry Systolic And Diastolic Provider Name and Address Organization Details Last Updated DateTime 157.48 cm 92 /min 96 % 96 % 112/64 mm[Hg] [facility] 15:57:55 Date Recorded Body height Body mass index (BMI) Body weight Heart rate Oxygen saturation Oxygen saturation in Arterial blood by Pulse oximetry Systolic And Diastolic Provider Name and Address Organization Details Last Updated DateTime 5 157.48 cm 45.2 kg/m2 012267. 32 g 88 /min 96 % 96 % 112/60 mm[Hg] [facility] 15:13:09 Date Recorded Body height Oxygen saturation Oxygen saturation in Arterial blood by Pulse oximetry Heart rate Respiratory rate Body temperature Body mass index (BMI) Body weight Systolic And Diastolic Provider Name and Address Organization Details Last Updated DateTime 5 157.48 cm 95 % 95 % 84 /min 16 /min 97.7 [degF] 45.4 kg/m2 067980. 91 g 138/72 mm[Hg] Abby Vargas [facility] 5 15:43:15 Social History Question Answer Notes LastModified by Organizat ion Details LastModified Time Tobacco Smoking Status Current Every Day Smoker Not Available Health Note 09/26/2024 15:28:43 Do You Have An Advance Directive? No [email or web address] Information not available 09/26/2024 What Is Your Level Of Caffeine Consumption? Occasional [email or web address] Information not available 09/26/2024 How Many Times Per Week Do You Exercise? 1-2 Times Per Week [email or web address] Information not available 09/26/2024 How Many Packs Per Day (PPD)? 1 Pack A Day [email or web address] Information not available 11/16/2023 How Long Have You Smoked? 52 Years [email or web address] Information not available 11/16/2023 What Was The Date Of Your Most Recent Tobacco Screening? 09/26/2024 [email or web address] Information not available 09/26/2024 What Is Your Current Pack Years? 30ormorepackye ars [email or web address] Information not available 09/26/2024 What Is Your Relationship Status? [email or web address] Information not available 09/26/2024 How Much Tobacco Do You Smoke? 1 PPD [email or web address] Information not available 09/26/2024 How Many Years Have You Smoked Tobacco? 54 [email or web address] Information not available 09/26/2024 Sex: Unknown Functional Status Question Answer Note LastModified by Organizat ion Details LastModified Time Do you use any illicit or recreational drugs? No [email or web address] Information not available 09/26/2024 Do you or have you ever used any other forms of tobacco or nicotine? No [email or web address] Information not available 09/26/2024 What is your level of alcohol consumption? None [email or web address] Information not available 09/26/2024 Are you currently employed? No [email or web address] Information not available 09/26/2024 What is your occupation? Disabled [email or web address] Information not available 09/26/2024 What is your exercise level? Occasional [email or web address] Information not available 09/26/2024 Mental Status None recorded. Family History Relationship Description Onset Age of this Age Resolved Age Notes LastModified by Organization Details LastModified Time Mother Family history of malignant neoplasm [email or web address] Not available 2024 15:28:41 Mother Diabetes mellitus [email or web address] Not available 2024 15:28:41 Mother Hypertensive disorder [email or web address] Not available 2024 15:28:41 Mother Hypercholest erolemia [email or web address] Not available 2024 15:28:41 Sister Family history of malignant neoplasm [email or web address] Not available 2024 15:28:41 Sister Diabetes mellitus [email or web address] Not available 2024 15:28:41 Brother Family history of malignant neoplasm [email or web address] Not available 2024 15:28:41 Maternal Grandfather Diabetes mellitus [email or web address] Not available 2024 15:28:41 Medical History Condition Response Diabetes Y Anxiety Disorder N Bleeding Disorder N Attention-deficit Hyperactivity Disorder N High Blood Pressure N Arthritis Y Hyperlipidemia N Cancer Y Stroke N Thyroid Problems N Asthma Y Depression N COPD Y Anemia N Seizures N Heart Disease N Fibromyalgia Y Osteoporosis Y Kidney Disease N Gynecological History Statement/Question Response If Post Menopausal, Age at Menopause 45 Age at Menarche 15 Obstetrics History GPAL:G 0 P 0 0 0 0 Immunizations Vaccine Type Date Status Note Provider Nam e and Address Organization Details Recorded Time Influenza, split virus, quadrivalent, preservative 0 [address] [facility] 07/17/2024 15:58:29 Influenza, MDCK, quadrivalent, PF [address] [facility] 07/17/2024 15:58:29 Influenza, MDCK, quadrivalent, PF [address] [facility] 07/17/2024 15:58:29 Influenza, adjuvanted, quadrivalent, PF [address] [facility] 07/17/2024 15:58:29 Influenza, adjuvanted, quadrivalent, PF [address] [facility] 07/17/2024 15:58:30 COVID-19, mRNA, LNP-S, PF, 100 mcg/0.5mL dose or 50 mcg/0.25mL dose [address] [facility] 07/17/2024 15:58:30 COVID-19, mRNA, LNP-S, PF, 100 mcg/0.5mL dose or 50 mcg/0.25mL dose [address] [facility] 07/17/2024 15:58:30 COVID-19, mRNA, LNP-S, PF, 100 mcg/0.5mL dose or 50 mcg/0.25mL dose 1 completed [facility] 07/17[facility]24 15:58:30 pneumococcal polysaccharide PPV23 7 completed [facility] 07/17/2024 15:58:30 Tdap 7 completed [facility] 07/17/2024 15:58:30 Pneumococcal conjugate PCV [address] [facility] 07/17/2024 15:58:30 Influenza, split virus, trivalent, preservative [address] [facility] 07/17/2024 15:58:30 Influenza, split virus, trivalent, preservative [address] [facility] 07/17/2024 15:58:30 Past Encounters Encounter ID Performer Location Encounter Start Date Encounter Closed Date Diagnosis/Indication Diagnosis SNOMED-CT Code Diagnosis ICD10 Code Diagnosis Note [id number] Lor Reyes MD [address] ([place]) [address] [place] [address],[address] [place] [address] 11/16/2023 14:50:12 11/16/2023 17:54:31 Secondary hyperaldosteronism 21231688 E26.1 BP controlled 114/70, recheck potassium Cirrhosis of liver 007 K74.60 Recheck LFTs Heart failure 70350224 I 50.9 Type 2 francisca betes mellitus 79208784 E11.69 A1c 10.5 (2020) improved to 5.5 (05/2023) with addition of Trulicity to metformin diet exercise Morbid obesity 069310338 E66.01 Malignant neoplasm of lung 843821427 C34.90 Actively managed by pulmonary and oncology Pre-surger y evaluation 723299744 Z01.818 Clinically stable for eye surgery with Dr. Martinez at [facility].BP controlled , CHF controlled , [...] Asthma-chr onic obstructive pulmonary disease overlap syndrome 4055559925 1390540 J44.9 Hypertensive disorder 38 229098 I10 BP 114/70 (10/2023) Recurrent urinary tract infection 060070494 N39.0 Sprain of left wrist 914 1533917 7328972 S63.502A Sprain rolling over in bed. Swelling around wrist. Bilateral arthritis of knees 0114029496 018936 M13.861 M13.862 Patient with DJD obesity, needs walker for at home. Her walker is starting to fall apart breakdown handles are worn out.Needs it for her DJD of the knees, back, and obesity. [id number] Tiffany Lopez, TROLLEY COACH DRIVER, MEDICAL EXAMINER [address] ([place]) [address] [place] [address],[address] [place] [address] 11/23/2023 14:34:40 11/23/2023 15:25:45 Squamous cell carcinoma of lung 551088196 C34.90 [id number] JOHN MENDOZA, GAVIN [address] On[facility] ([place]) [address] [place] [address],[address] [place] [address] 03/12/2024 14:21:46 03/13/2024 08:03:54 Mass of uterine adnexa 347892182 N94.89 Vulval intraepithelial neoplasia grade 3 194892127 D07.1 [id number] Nestor Andrade PA-C [address] Gastroent erology ([place]) [address] [facility],[address] [place] [address] 07/15/2024 15:10:25 07/15/2024 16:02:41 Cirrhosis of liver 03312725 K74.60 [id number] Lor Reyes MD [address] ([place]) [address] [place] [address],[address] [place] [address] 07/17/2024 15:18:30 07/18/2024 08:39:00 Type 2 diabetes mellitus 08794647 E11.69 A1c 10.5 (2020) improved to 5.5 (05/2023) with addition of Trulicity to metformin diet exercise Cirrhosis of liver 32742 007 K74.69 K74.60 Recheck LFTs Malignant neoplasm of lung 459259708 C34.90 Actively managed by pulmonary and oncology Morbid obesity 382300916 E66.01 Chronic pain 37530730 M1 3.869 M54.50 C34.31 Pain management adequate Lymphadenopathy 79276678 R59.9 Right axilla x 2 Asthenia 74562681 R53.81 Chronic ob structive pulmonary disease 74221487 J44.9 Heart failure 43189456 I 50.9 Portal hypertension 3474 2002 K76.6 [id number] Delvin Villalba MD [facility] GI Anesthesi a S [address] [place] [address] 08/06/2024 15:27:20 08/14/2024 09:03:59 [id number] Brigitte Ramsay MD [facility]astro[facility] [place]ology ([place]) [address] [place] [address], 2nd [place] [address] 08/06/2024 15:27:22 08/12/2024 10:55:34 [id number] Tammy Dennison CNP [address] Medicine ([place]) [address] [place] [address],[address] [place] [address] 09/26/2024 15:02:50 09/26/2024 16:16:02 Urinary system finding 611915938 R39.9 Type 2 francisca betes mellitus 60153225 E11.9 Peripheral nerve disease 386896977 G56.92 Low back pain 114696230 M54.50 [id number] Tiffany Lopez, TROLLEY COACH DRIVER, MEDICAL EXAMINER [facility] 4th Oncology/ Hematolog y ([place]) [address] [place] [address],4t [place] [address] 10/02/2024 15:30:00 10/02/2024 16:06:13 Squamous cell carcinoma of lung 514082374 C34.90 Mass of ri ght axillary region 3430867444 48610118 R22.31 Health Concerns Section Related Observation LastModified by Organization Detai ls LastModified Time None Recorded Concern Status LastModified by Organization Details LastModified Time None Recorded Advance Directives Directive N: Payers Insurance Date Sequence Insurance Name Policy Number Policy Alcantara Covered Member ID Alcantara Member ID Guarantor Name 11/09/2024 2 [place] [facility] Christina Ramirez [id number] Christina Ramirez 11/09/2024 1 [facility] (MEDICARE REPLACEMENT/A DVANTAGE - PPO) [id number] Christina Ramirez [id number] Christina Ramirez Notes Date Note Type Note Provider Name and Address Organization Details Recorded Time 5 text/html Patient here to follow-up on multiple problems 1. DMT2 A1c 10.1 (2020) improved to 5.5 with Trulicity added to diet, activity, metformin2. Asthma-COPD smoker on ipratropium3. Squamous cell carcinoma of the lung4. Heart failure EF 73% suggest HFpEF diastolic dysfunction on furosemide, spironolactone5. Hyperlipidemia on rosuvastatin6. Cirrhosis with portal hypertension.7. Depression on fluoxetine8. Arthritis bilateral knees on amitriptyline-hydrocodon e pain management Lor Reyes MD [facility] [place] [address], [phone], [facility] 07/21/2024 22:44:41 5 text/html The history and physical dated 07/15/2024 completed by rachael pineda has been reviewed, the patient has been examined and no change has occurred in the patient s condition since the history and physical was completed. Brigitte Ramsay MD [address] [place] [address], [phone], [facility] 08/06/2024 16:00:10 5 text/html [facility] PRE-ANESTHETIC EVALUATIONReported bypatient.Reason for Visit:PROPOSED PROCEDURE: EGD; SURGEON: [...] limited to PONV, dental injury, sore throat, VA, stroke, etc. All questions were answered. Patient verbalize(s) understanding and agree(s) to proceed. Delvin Villalba MD [address] [place] [address], [phone], [facility] 08/06/2024 15:58:36 5 text/html Christina Ramirez is a 69 year old female who presents today for follow up from the hospital due to UTI. States she was diagnosed with one, placed on an antibiotic. Then she presented again with worsening symptoms and had to change around antibiotics.She presents today for follow up to ensure the UTI has cleared.Only urinary symptom she is having is a stronger urine odor. Christina Ramirezis a 69 year oldfemalepresenting for care. Menopause:yes, began se45amuiw old Date of last mammogram:08/13/2016 Tammy Dennison CNP [address] [place] [address], [phone], [facility] 09/27/2024 14:24:13 5 text/html DIAGNOSIS:1. Clinical stage IIIA, T3N1M0 Right lung squamous cell cancer (7 cm mass, suspicious hilar lymph node) August 2018. 2. left ovarian mass, 16 cm and postmenopausal bleeding status post D&C June 15, 2018. 3. COPD, chronic active smoker 90-ujyb-duab history. 4. liver cirrhosis and splenomegaly. 5. Chronic lower extremity edema. 6. Diabetes mellitus diagnosed while undergoing treatment with immunotherapy. Treatment history 1. Concurrent chemoradiation with weekly carboplatin and Taxol started September 12, 2018 completed October 17, 2018, 6 cycles. Radiation completed in October 23, 2018. 2. Maintenance Durvalumab December 05, 2018- November 20, 2019. 3. 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 Christina is here today for follow-up regarding her history of previously treated clinical stage IIIA squamous cell lung cancer. She completed concurrent chemoradiation therapy followed by adjuvant immunotherapy in 2019. She is accompanied by a family member today. She continues to be seen intermittently due to difficulty with transportation. She denies any recent respiratory changes. She has been following with GI for underlying cirrhosis and recently underwent upper and lower endoscopy. She last had CT imaging of the chest performed in November 2023. She reports a nodularity in the right axillary region without any pain or discomfort that she has noted over the past couple of months. She was recently hospitalized with urinary tract infection and had a follow-up with her primary care provider. Tiffany Lopez, TROLLEY COACH DRIVER, MEDICAL EXAMINER [address] [place] [address], [phone], [facility] 10/02/2024 16:51:56 OBGyn Episode No OBEpisode recorded.
--- OUTSIDE RECORDS SUMMARY | 2024-11-11 14:56 | XMS_ITS | Clinical Summary ---
Author Organization [facility] Address [address] [place] [address] Care Team Providers Care Assistant Store Manager Operations Name Role Phone Rolly Best MD Primary Care Provider [phone] Allergies No known active allergies Medications rosuvastatin [...] MCG/ 0.5 ML DOSE 09/11/2020,08/14/2020 MODERNA COVID-19 (SUPERVISOR [employer]CLAMATION BAILEY SARA), MRNA, LNP-S, PF, 50 MCG/ 0.25 ML DOSE 04/20/2021 Family History Medical History Relation Comments Heart Disease Father Hyperlipidemia Father Hypertension Father Cancer Mother Lung Diabetes Mother Relation Status Comments Father Mother Social History Tobacco Use Types Packs/Day Years Used Date Smoking Tobacco: Every Day Cigarettes 1 52.5 Started: 1970 Smokeless Tobacco: Never Tobacco Cessation:Ready [...] 10:15 AM CDT Height 157.5 cm (5' 2) 12/05/2023 10:15 AM CDT Body Mass Index [...] this topic Medical Devices Implanted Type Area Parts Designer Device Identifier Shelf Expiration Date Model / Serial / Lot Iol Tecnis Dib00 - [id number] Implanted:Qty: 1 on 11/27/2023 by Nam Martinez MD at [facility] Lens Left: Eye [employer] [id number] 03/12/2026 DIB00 / [id number] / NA Description:Dr. Martinez confirm ed IOL Iol Tecnis Dib00 - [id number] Implanted:Qty: 1 on 12/11/2023 by Nam Martinez MD at [facility] Lens Right: Eye [employer] [id number] 07/30/2026 DIB00 / [id number] / NA Description:Verified with ep meera and Dr Guido Insurance [facility] MEDICAID Care Teams Assistant Store Manager Operations Relationship Specialty Start Date End Date Rolly Best MD PCP - General FAMILY PRACTICE 11/27/23
--- OUTSIDE RECORDS SUMMARY | 2024-11-11 14:56 | XMS_ITS | Continuity of Care Document ---
Author Organization [facility] Address [address] [place] [address] Phone Care Team Providers Care Salesforce Trainer Name Role Phone Delroy Calhoun MD Unavailable [...] Diagnoses Date Provider Providers Copied on Encounter [facility], [address], [place], [id number], tel:[phone] [facility] No Information [address] Lj Potts. [address], [place], [id number] , [place]. tel:[phone] PREV VISIT, NEW, AGE 40-64 [facility], [address], [place], [id number], tel:[phone] [facility] Physical (chief complaint) Dietary surveillance and counselingRoutine Medical ExamRoutine Medical Exam 4 Lj Potts. [address], [place], [place], [id number] , [place]. tel:[phone] Family History Family Member Type Diagnosis Age [...]
--- NOTE | 2024-11-11 15:26 | ED.WEAKNESS ---
HPI - Weakness General Chief complaint: Urogenital-Female Stated complaint: weakness Time Seen by Provider: 11/11/24 15:26 Source: patient Mode of arrival: EMS Limitations: no limitations History of Present Illness HPI Narrative: She is she is 68 years old white female seems to the ED cc complaining of general weakness she has. She denies any fever, chills, nausea, vomiting, chest pain, shortness of breath, abdominal pain or back pain. Patient report having similar symptoms in the past and was diagnosis of urinary tract infection at that time. History of diabetes hypertension hyperlipidemia, and tobacco dependent. Related Data Home Medications ?Medication ?Instructions ?Recorded ?Confirmed ?Last Taken ?Type Ashton 7.5 mg PO TID PRN Pain 11/17/23 11/11/24 Unknown History amitriptyline 10 mg PO QHS 11/17/23 11/11/24 09/04/24 21:50 History fluoxetine 20 mg PO DAILY 11/17/23 11/11/24 09/05/24 09:32 History furosemide 80 mg PO DAILY 11/17/23 11/11/24 09/05/24 08:30 History metformin 500 mg PO BID 11/17/23 11/11/24 09/05/24 08:30 History rosuvastatin 20 mg PO DAILY 11/17/23 11/11/24 09/05/24 08:30 History spironolactone 50 mg PO BID 11/17/23 11/11/24 09/05/24 08:30 History dulaglutide 3 mg/0.5 mL 3 mg subcut WEEKLY 09/03/24 11/11/24 Unknown History subcutaneous pen injector (Trulicity) metoprolol succinate 25 mg mg PO 11/11/24 Unknown History tablet,extended release 24 hr Allergies Allergy/AdvReac Type Severity Reaction Status Date / Time No Known Allergies Allergy Verified 11/11/24 14:56 Review of Systems Review of Systems: All systems reviewed & are unremarkable except as noted in HPI and below PMFSH Past Medical History Medical History Tobacco abuse Cirrhosis Enlarged ovary Fall UTI (urinary tract infection) Type 2 diabetes mellitus Social History Social History Smoking packs per day: 1 Smoking cigarettes per day: 20.0 Years smoked: 50 Smoking pack-years: 50.00 Smoking status: Current every day smoker Tobacco type: cigarettes Second hand tobacco smoke exposure: Yes Alcohol intake: never Substance use: never Substance use type: does not use Do You Feel Safe in your Home?: Yes Lack of Transportation: No Lack of Food: Never True Current Housing: I Have Housing Concerned About Future Housing: No Difficulty Paying Gas/Electric Bills: No Difficulty Paying for Meds: No Currently Unemployed: No Education: High School Diploma/GED Difficulty w/ Childcare or Family Care: No Spiritual care concerns: Yes Exam Narrative: General appearance: Well-developed, well-nourished Skin: Normal color Head: Normocephalic, nontraumatic Eyes: Clear conjunctiva ENT: Oropharynx normal, ears normal, nose normal Neck: Supple, nontender Chest and respiratory: Airway patent, no respiratory distress, no accessory muscle use Heart: Regular rate/rhythm Abdomen: Soft, nontender, no organomegaly, quiet bowel sounds A masslike feeling at the left abdomen, patient is aware of it and is telling me that the been watched it and is not malignant Vascular: Normal peripheral pulses, normal capillary refill. 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 Lab Data Attestation: I reviewed the patient's lab results. 11/11/24 15:45 11/11/24 15:45 Labs: Lab Results 11/11/24 11/11/24 Range/Units 15:00 15:45 WBC 8.0 (4.8-10.8) K/mm3 RBC 4.62 (4.20-5.40) M/mm3 Hgb 14.8 H (11.7-13.8) g/dL Hct 43.9 H (35.0-42.0) % MCV 95.0 (78.0-102.0) fL MCH 32.0 H (27.0-31.0) pg MCHC 33.7 (32-36) g/dL RDW 13.7 (11.6-14.4) % Plt Count 260 (150-420) K/mm3 MPV 8.9 L (9.2-11.8) fl Immature Gran % (Auto) 0.4 H (0.0-0.0) % Neut % (Auto) 55.9 (50.0-70.0) % Lymph % (Auto) 25.9 (18.0-42.0) % [place] % (Auto) 13.0 H (2.0-11.0) % Eos % (Auto) 3.3 (1.0-6.0) % Baso % (Auto) 1.5 H (0.0-1.0) % Lymph # (Auto) 2.07 (1.10-4.50) K/mm3 [place] # (Auto) 1.04 H (0.10-0.90) K/mm3 Eos # (Auto) 0.26 (0.02-0.50) K/mm3 Baso # (Auto) 0.12 H (0.00-0.10) K/mm3 Abs Immat Gran (auto) 0.03 H (0.00-0.00) K/mm3 Absolute Neuts (auto) 4.46 (1.70-7.20) K/mm3 Absolute Nucleated RBC 0.00 (0.00-0.00) K/mm3 Nucleated RBC % 0.0 (0-0.0) % Sodium 141 (137-145) mmol/L Potassium 3.2 L (3.4-5.0) mmol/L Chloride 103 (98-107) mmol/L Carbon Dioxide 32 H (22-30) mmol/L Anion Gap 6 (4-12) mmol/L BUN 7 (7-17) mg/dL Creatinine 0.74 (0.7-1.0) mg/dL Estim Creat Clear Calc Not Reportable Estimated GFR > 60 (59 - ) Glucose 111 H (65-110) mg/dL Calculated Osmolality 291 (285-295) mOsm/kg Calcium 9.3 (8.4-10.2) mg/dL Total Bilirubin 1.2 (0.2-1.3) mg/dL AST 38 H (14-36) U/L ALT 20 (6-35) U/L Alkaline Phosphatase 64 (38-126) U/L Total Protein 7.4 (6.3-8.2) g/dL Albumin 3.6 (3.5-5.1) g/dL Urine Color Light yellow (Yellow) Urine Appearance Sl cloudy A (Clear) Urine pH 6.0 (5.0-8.0) Ur Specific [place] 1.010 (1.010-1.020) Urine Protein Negative (Negative) Urine Glucose (UA) Negative (Negative) Urine Ketones Negative (Negative) Ur Blood (Man) Negative (Negative) Urine Nitrate Positive H (Negative) Urine Bilirubin Negative (Negative) Urine Urobilinogen 1.0 (0.2-1.0) mg/dL Leukocyte Esterase Rfl Negative (Negative) KT/UL Urine RBC None seen (0-2) /hpf Urine WBC 4-6 H (0-3) /hpf Ur Squamous Epith Cells Few (Few) /hpf Urine Bacteria 3+ H (None) /hpf Hyaline Casts Present (None) /lpf Imaging Data Radiologist's impression: Impressions Chest X-Ray 11/11/24 15:40 IMPRESSION: Stable right lower lobe airspace disease and scarring. Critical Care Time Critical Care Time Critical Care Time: No Discharge Plan Discharge Clinical Impression: Urinary tract infection Patient Disposition: Home Condition: Stable Instructions: Antibiotic Form, Urinary Tract Infection in Women (ED) Additional Instructions: RETURN IF SYMPTOMS ARE WORSENING , CALL YOUR FAMILY PHYSICIAN FOR APPOINTMENT, TAKE TYLENOL NEEDED FOR ACHES AND PAIN, CONTINUE HOME MEDICATIONS. Patient Language: Romansh Prescriptions: New ciprofloxacin HCl [Cipro] 500 mg tablet 500 mg PO Q12H Qty: 10 0RF No Action Trulicity 3 mg/0.5 mL pen injector 3 mg SUBCUT WEEKLY Ashton 7.5 mg PO TID PRN (Reason: Pain) amitriptyline 10 mg PO QHS fluoxetine 20 mg PO DAILY furosemide 80 mg PO DAILY metformin 500 mg PO BID rosuvastatin 20 mg PO DAILY spironolactone 50 mg PO BID magnesium oxide 400 mg (241.3 mg magnesium) Tablet 400 mg PO DAILY Qty: 30 0RF metoprolol succinate 25 mg tablet extended release 24 hr PO Follow-up/Referrals: UNKNOWN,DOCTOR [Non-Staff] -
[2024-11-11 15:50] LABS: Hematocrit 43.9 % (35.0-42.0); Hemoglobin 14.8 g/dL (11.7-13.8); Immature Granulocyte Percent A 0.4 % (0.0-0.0); Lymphocytes Absolute Auto 2.07 K/mm3 (1.10-4.50); Mean Corpuscular HGB Conc 33.7 g/dL (32-36); Mean Corpuscular Hemoglobin 32.0 pg (27.0-31.0); Mean Corpuscular Volume 95.0 fL (78.0-102.0); Nucleated Red Blood Cells Absolute Auto 0.00 K/mm3 (0.00-0.00); Nucleated Red Blood Cells Perc 0.0 % (0-0.0); Platelet Count Result 260 K/mm3 (150-420); Red Blood Count 4.62 M/mm3 (4.20-5.40); White Blood Count 8.0 K/mm3 (4.8-10.8)
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
--- OUTSIDE RECORDS SUMMARY | 2024-11-11 15:56 | XMS_ITS | Clinical Summary ---
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 Machine Operator Name Role Phone Rolly Best MD Primary Care Provider [phone] Allergies No known active allergies Medications rosuvastatin [...] MCG/ 0.5 ML DOSE 09/11/2020,08/14/2020 [employer] COVID-19 (ORAL SURGEON BAILEY SARA), MRNA, LNP-S, PF, 50 MCG/ [...] this topic Medical Devices Implanted Type Area Network Strategist Device Identifier Shelf Expiration Date Model / Serial / Lot Iol Tecnis Dib00 - [id number] Implanted:Qty: 1 on 11/27/2023 by Nam Martinez MD at [facility] Lens Left: Eye [employer] [id number] 03/12/2026 DIB00 / [id number] / NA Description:Dr. Martinez confirm ed IOL Iol Tecnis Dib00 - [id number] Implanted:Qty: 1 on 12/11/2023 by Nam Martinez MD at [facility] Lens Right: Eye [employer] [id number] 07/30/2026 DIB00 / [id number] / NA Description:Verified with ep meera and Dr Guido Insurance [place] [address] MEDICAID Care Teams Side Seam Envelope Machine Operator Relationship Specialty Start Date End Date Rolly Best MD PCP - General FAMILY PRACTICE 11/27/23
[2024-11-11 16:00] LABS: Alanine Aminotransferase 20 U/L (6-35); Albumin Level 3.6 g/dL (3.5-5.1); Alkaline Phosphatase 64 U/L (38-126); Anion Gap 6 mmol/L (4-12); Aspartate Amino Transferase 38 U/L (14-36); Bilirubin,Total 1.2 mg/dL (0.2-1.3); Blood Urea Nitrogen 7 mg/dL (7-17); Calcium 9.3 mg/dL (8.4-10.2); Carbon Dioxide 32 mmol/L (22-30); Chloride 103 mmol/L (98-107); Estimated Glomerular Filt Rate > 60; Glucose 111 mg/dL (65-110); Osmolality Calculated 291 mOsm/kg (285-295); Potassium 3.2 mmol/L (3.4-5.0); Sodium 141 mmol/L (137-145); Total Protein 7.4 g/dL (6.3-8.2)
[2024-11-11 16:15] LABS: Add Urine Microscopic? YES; Appearance Urine Sl Cloudy (Clear); Glucose Urine UA Negative (Negative); Leukocyte Esterase Ur Negative LEU/UL (Negative); Nitrate Urine Positive (Negative); Specific Grav Ur 1.010 (1.010-1.020)
[2024-11-11] MEDS: cefTRIAXone 1 GM in SODIUM CHLORIDE 0.9% IV 50 ML 100 ML IVPB (17:28)
--- NOTE | 2024-11-14 13:03 | PC.NURSE ---
preliminary urine culture reviewed. 50,000-100,000 gram negative bacilli isolated
--- NOTE | 2024-11-16 12:09 | PC.NURSE ---
PRELIMINARY UA RESULTS; GARM NEGATIVE BACILLI ISOLATED; PATIENT D/C ON CIPRO, WILL WAIT FINAL CULTURE AND SENSITIVITY PER ERP DR. THOMAS
--- NOTE | 2024-11-17 13:33 | PC.NURSE ---
FINAL UA CULTURE REPORT; ESCHERICHIA COLI. PATIENT DISCHARGED ON CIPROFLOXACIN. CULTURE RESISTANT TO MEDICATION, PRESCRIPTION TO BE CHANGED TO BACTRIM DS, 1 TABLET TWICE DAILY X5 DAYS, #10, 0 REFILL, CALLED INTO [facility].
== END 2024-11-11 18:11 | disposition home or self-care (01) ==
PROVIDERS: Emergency Provider Emergency Medicine
DX: N39.0 Urinary tract infection, site not specified (principal); E11.9 Type 2 diabetes mellitus without complications; I10 Essential (primary) hypertension; E78.5 Hyperlipidemia, unspecified; F17.200 Nicotine dependence, unspecified, uncomplicated; Z79.899 Other long term (current) drug therapy; Z79.84 Long term (current) use of oral hypoglycemic drugs
CPT/HCPCS: 36415; 71045; 80053; 81001; 85025; 96365; 99284; J0696